=== PATIENT | female | born 1965 | race Caucasian/White ===

== ENCOUNTER → 2020-09-07 | Outpatient (CLI) | payer OTHER, SELFPAY ==
[2020-08-24 09:23] VITALS: BMI 25.0
--- NOTE | 2020-09-07 12:51 | ECHOD_ITS ---
Reason For Study: DYSPNEA Procedure This was a 2D Doppler, Color Flow transthoracic echocardiogram. Exam performed in department. Left Ventricle Normal LV size. Left ventricular systolic function is normal. The estimated ejection fraction is 65 %. Normal diastology for age. No regional wall motion abnormalities noted. Right Ventricle Normal RV size. Normal systolic function. Atria Normal left atrium. Normal right atrium. Mitral Valve Normal mitral valve. Mild (1+) eccentric mitral valve insufficiency. Tricuspid Valve Normal tricuspid valve. Mild tricuspid valve insufficiency. Pulmonary artery systolic pressure is 36 mmHg. Aortic Valve Normal aortic valve. Trisinus/trileaflet aortic valve. Pulmonic Valve Normal pulmonic valve. Great Vessels Normal aortic root. The pulmonary artery is normal size. Normal inferior vena cava. Pericardium/Pleural No pericardial effusion. Medication Previously positive bubble on echo. MMode/2D Measurements & Calculations LVIDd: 4.3 cm IVSd: 0.75 cm Ao root diam: 3.5 cm LVIDs: 2.8 cm LVPWd: 0.79 cm RVDd: 2.9 cm FS: 34.5 % LAV(MOD-bp): 44.2 ml LA A4 area: 16.6 cm2 LA dimension(2D): 3.6 cm LAV(MOD-bp) Indexed: 26.2 ml/m2 LAV(MOD-sp2): 40.9 ml LAV(MOD-sp4): 46.9 ml RA A4 area: 13.2 cm2 Time Measurements MV dec time: 0.20 sec Doppler Measurements & Calculations MV E max rocky: 92.2 cm/sec Lat Peak E' Rocky: 9.7 cm/sec Med Peak E' Rocky: 7.4 cm/sec MV A max rocky: 78.6 cm/sec E/E' lat: 9.5 E/E' med: 12.4 MV E/A: 1.2 Ao V2 max: 157.6 cm/sec LV V1 max: 133.1 cm/sec PA V2 max: 142.2 cm/sec Ao max P.9 mmHg LV V1 max P.1 mmHg TR max rocky: 290.4 cm/sec TR max P.7 mmHg Interpretation Summary Normal LV size. Left ventricular systolic function is normal. The estimated ejection fraction is 65 %. Normal diastology for age. The global longitudinal strain is normal. The global longitudinal strain = -23.1 % (normal). Ordering Physician: Rocael Rhodes Referring Physician: AMARILYS STEARNS Performed By: Soledad Duran, RDCS, RVT
== END | disposition home or self-care (01) ==
LOC: CVS 12:50
PROVIDERS: PCP Nurse Practitioner Primary Care; Referring Provider Internal Medicine Cardiovascular Disease; Visit Provider Internal Medicine Cardiovascular Disease
DX: R06.00 Dyspnea, unspecified (principal); R06.02 Shortness of breath; I10 Essential (primary) hypertension
CPT/HCPCS: 93306

== ENCOUNTER → 2023-03-02 | Outpatient (CLI) | payer OTHER, SELFPAY ==
[2023-03-02 15:41] LABS: Hematocrit 39.4 % (37-47); Hemoglobin 13.3 g/dL (12.0-15.0); Mean Corp Hgb Conc 33.8 g/dL (32-36); Mean Corpuscular Hgb 29.7 pg (27.0-32.0); Mean Corpuscular Volume 87.9 fL (81-99); Platelet Count 286 K/mm3 (150-450); RBC Distribution Width CV 11.7 % (11.6-14.6); RBC Distribution Width SD 37.5 fl (35.1-43.9); Red Blood Count 4.48 M/mm3 (4.2-5.4); White Blood Count 5.3 K/mm3 (4.4-11.0)
[2023-03-02 16:12] LABS: ALB/GLOB Ratio 1.3 RATIO (0.9-2.4); AST(SGOT) 32 U/L (15-37); Alanine Aminotransfer ALT/SGPT 44 U/L (13-56); Albumin, Serum 4.4 g/dL (3.2-5.0); Alkaline Phosphatase 69 U/L (45-117); Anion Gap 7 (5-15); BUN 13 mg/dL (7-18); BUN/Creat Ratio 15.5 RATIO (10-20); Calcium,Total 9.6 mg/dL (8.5-10.1); Chloride 108 mmol/L (98-107); Creatinine, Serum 0.84 mg/dL (0.55-1.02); EST Glomerular Filtration Rate 75 mL/min (>60); Est Glom Filt Rate - Afr Amer 90 mL/min (>60); Globulin 3.5 g/dL (2.2-4.2); Glucose 97 mg/dL (74-106); LDH 175 U/L (84-246); Potassium 3.6 mmol/L (3.5-5.1); Protein, Total 7.9 g/dL (6.4-8.2); Rheumatoid Factor < 10.0 IU/mL (<15); Sodium Level 142 mmol/L (136-145)
[2023-03-04 05:07] LABS: CA 15-3 13.4 U/mL (0.0-25.0); CA 27.29 15.7 U/mL (0.0-38.6); Carcinoembryonic Antigen 2.7 ng/mL (0.0-4.7)
[2023-03-04 14:10] LABS: ANTINUCLEAR ANTIBODIES DIRECT Negative (Negative)
== END | disposition home or self-care (01) ==
PROVIDERS: PCP Nurse Practitioner Primary Care
DX: C50.211 Malignant neoplasm of upper-inner quadrant of right female breast (principal)
CPT/HCPCS: 36415; 80053; 82378; 83615; 85027; 86038; 86300; 86431

== ENCOUNTER → 2023-04-30 | Outpatient (CLI) | payer OTHER, SELFPAY ==
[2023-04-30 13:34] LABS: Hematocrit 37.7 % (37-47); Hemoglobin 12.5 g/dL (12.0-15.0); Mean Corp Hgb Conc 33.2 g/dL (32-36); Mean Corpuscular Hgb 30.4 pg (27.0-32.0); Mean Corpuscular Volume 91.7 fL (81-99); Mean Platelet Vol. 10.9 fl (6.2-12.0); Platelet Count 251 K/mm3 (150-450); RBC Distribution Width CV 11.8 % (11.6-14.6); RBC Distribution Width SD 39.4 fl (35.1-43.9); Red Blood Count 4.11 M/mm3 (4.2-5.4); White Blood Count 5.1 K/mm3 (4.4-11.0)
[2023-04-30 13:45] LABS: Erythrocyte Sedimentation Rate < 1 mm/hr (0-30)
[2023-04-30 14:19] LABS: ALB/GLOB Ratio 1.3 RATIO (0.9-2.4); AST(SGOT) 22 U/L (15-37); Alanine Aminotransfer ALT/SGPT 26 U/L (13-56); Albumin, Serum 3.9 g/dL (3.2-5.0); Alkaline Phosphatase 66 U/L (45-117); Anion Gap 6 (5-15); BUN 14 mg/dL (7-18); BUN/Creat Ratio 13.5 RATIO (10-20); CRP < 2.90 mg/L (0.0-3.0); Chloride 108 mmol/L (98-107); Creatinine, Serum 1.04 mg/dL (0.55-1.02); EST Glomerular Filtration Rate 58 mL/min (>60); Est Glom Filt Rate - Afr Amer 70 mL/min (>60); Globulin 3.1 g/dL (2.2-4.2); Glucose 161 mg/dL (74-106); Sodium Level 141 mmol/L (136-145)
[2023-05-04 18:07] LABS: ANTINUCLEAR ANTIBODIES DIRECT Negative (Negative)
== END | disposition home or self-care (01) ==
PROVIDERS: PCP Registered Nurse; Referring Provider Family Medicine; Visit Provider Family Medicine
DX: R51.9 Headache, unspecified (principal); R22.0 Localized swelling, mass and lump, head; I10 Essential (primary) hypertension
CPT/HCPCS: 36415; 80053; 85027; 85652; 86038; 86140

== ENCOUNTER → 2023-05-25 | Outpatient (CLI) | payer OTHER, SELFPAY ==
[2023-05-25 14:50] LABS: Cholesterol 186 mg/dL (200); High Density Lipoprotein 64 mg/dL; T4 Free Direct 0.75 ng/dL (0.76-1.46); Thyroid Stim Hormone (TSH) 1.43 uIU/mL (0.358-3.74); Triglycerides 154 mg/dL; Very Low Density Lipoprotein 31 mg/dL (5-40)
== END | disposition home or self-care (01) ==
LOC: LAB 11:47
PROVIDERS: PCP Registered Nurse; Visit Provider Registered Nurse
DX: Z00.00 Encounter for general adult medical examination without abnormal findings (principal); Z13.29 Encounter for screening for other suspected endocrine disorder
CPT/HCPCS: 36415; 80061; 84439; 84443

== ENCOUNTER → 2023-06-12 | Outpatient (CLI) | payer OTHER, SELFPAY ==
[2023-06-12 16:31] LABS: Hematocrit 41.2 % (37-47); Hemoglobin 13.8 g/dL (12.0-15.0); Mean Corp Hgb Conc 33.5 g/dL (32-36); Mean Corpuscular Hgb 30.7 pg (27.0-32.0); Mean Corpuscular Volume 91.8 fL (81-99); Mean Platelet Vol. 10.3 fl (6.2-12.0); Platelet Count 287 K/mm3 (150-450); RBC Distribution Width CV 11.5 % (11.6-14.6); RBC Distribution Width SD 38.9 fl (35.1-43.9); Red Blood Count 4.49 M/mm3 (4.2-5.4); White Blood Count 6.2 K/mm3 (4.4-11.0)
[2023-06-12 16:59] LABS: ALB/GLOB Ratio 1.3 RATIO (0.9-2.4); AST(SGOT) 16 U/L (15-37); Alanine Aminotransfer ALT/SGPT 29 U/L (13-56); Albumin, Serum 4.3 g/dL (3.2-5.0); Alkaline Phosphatase 71 U/L (45-117); Anion Gap 5 (5-15); BUN 15 mg/dL (7-18); BUN/Creat Ratio 14.4 RATIO (10-20); Calcium,Total 9.3 mg/dL (8.5-10.1); Chloride 108 mmol/L (98-107); Creatinine, Serum 1.04 mg/dL (0.55-1.02); EST Glomerular Filtration Rate 58 mL/min (>60); Est Glom Filt Rate - Afr Amer 70 mL/min (>60); Globulin 3.3 g/dL (2.2-4.2); Glucose 116 mg/dL (74-106); Potassium 3.8 mmol/L (3.5-5.1); Protein, Total 7.6 g/dL (6.4-8.2); Sodium Level 142 mmol/L (136-145)
[2023-06-14 11:07] LABS: CA 15-3 13.1 U/mL (0.0-25.0); CA 27.29 23.7 U/mL (0.0-38.6); Carcinoembryonic Antigen 2.8 ng/mL (0.0-4.7)
== END | disposition home or self-care (01) ==
PROVIDERS: PCP Registered Nurse
DX: C50.211 Malignant neoplasm of upper-inner quadrant of right female breast (principal)
CPT/HCPCS: 36415; 80053; 82378; 85027; 86300

== ENCOUNTER → 2023-07-20 | Outpatient (CLI) | payer OTHER, SELFPAY ==
[2023-07-20 14:06] LABS: T4 Free Direct 0.86 ng/dL (0.76-1.46); Thyroid Stim Hormone (TSH) 0.59 uIU/mL (0.358-3.74)
== END | disposition home or self-care (01) ==
LOC: LAB 13:17
PROVIDERS: PCP Registered Nurse; Referring Provider Registered Nurse; Visit Provider Registered Nurse
DX: E03.9 Hypothyroidism, unspecified (principal)
CPT/HCPCS: 36415; 84439; 84443

== ENCOUNTER 2023-10-02 01:08 | Emergency (ER) | payer OTHER, SELFPAY ==
[2023-10-02 01:09] VITALS: BP 118/75; PULSE 100; RESP 16; TEMP 35.9; O2SAT 98; BMI 26.1
--- NOTE | 2023-10-02 01:19 | EDS_ITS ---
HPI History of Present Illness Chief Complaint: Palpitations Detail of Chief Complaint: Palpitations and chest tightness that awoke her from sleep Informant: patient Onset/Context/Timing Onset: Hours (1.0) Activity at onset: sudden Timing: Continuous Quality: Positive for Tightness Location: Substernal Current Severity: Mild Maximum Severity: Moderate Worsened By: Nothing Relieved By: Nothing Associated Symptoms: Positive for Diaphoresis and Dyspnea; Negative for Nausea, Vomiting, Cough, Fever, Lightheadedness, Acid Reflux or Palpitations Narrative Narrative: Patient is a 57-year-old woman with history of hypertension, right breast cancer, patent foramen ovale who was admitted to [facility] [place] August 27 for new onset A-fib. She was placed on Eliquis at that time. The Eliquis was discontinued on September 11. She is presently taking a baby aspirin a day. She has not had an alcoholic beverage since then. She is presently on metoprolol 50 mg extended release daily and amlodipine 5 mg daily. Patient states she was awakened to sleep with substernal tightness palpitations irregular heartbeat. She was short of breath. She states she was sweaty. There is no radiation of the discomfort. She denies fever, chills night sweats. She has trouble with her vision because she does not have her contacts in. She does complain of bifrontal headache. She denies trouble with speech or swallowing. Denies neck pain or neck stiffness. She denies history of VTE. She has no risk factors for VTE. Her breast cancer is not active and was diagnosed greater than 3 years ago. Prior Similar Symptoms: Yes (New onset atrial fibrillation) Recent Illness/Hospitalization: Yes (August 27, 2023, [id number]) CVD Risk Factors: Positive for Hypertension; Negative for Diabetes, Hypercholesterolemia, Family History 1' </=55 or Smoking PE Risk Factors: Negative for Recent Travel/Surgery, Recent Immobilization, Prior DVT or PE, Cancer (Not active and not undergoing treatment.) or OCP + Smoking + >/=35 TAD Risk Factors: Positive for Hypertension; Negative for Marfan's Syndrome or Family History [facility] Medical History Afib Breast cancer, right Essential (primary) hypertension Family history of patent foramen ovale History of psoriasis Intermittent palpitations Patent foramen ovale Tubal occlusion Vaginal dryness Home Medications omega 3-dha 60 mg-epa 90 mg-fish oil 500 mg capsule, delayed release 1,000 mg PO DAILY 10/21/13 [History Last Taken Unknown] vitamin B complex 1 ea PO DAILY 10/21/13 [History Last Taken Unknown] diphenhydramine HCl 25 mg capsule 50 mg PO DAILY PRN Allergies 04/13/20 [History Last Taken Unknown] lactobacillus combination no.8 3 billion cell capsule 1 ea PO DAILY 04/13/20 [History Last Taken Unknown] loratadine 10 mg tablet 10 mg PO DAILY 04/13/20 [History Last Taken Unknown] melatonin 5 mg tablet 5 mg PO QHS PRN Sleep 04/13/20 [History Last Taken Unknown] tamoxifen 20 mg tablet 20 mg PO DAILY #90 tabs 04/17/20 [Rx Last Taken Unknown] metoprolol succinate 50 mg tablet,extended release 24 hr (Toprol XL) 50 mg PO DAILY #90 tabs 08/24/20 [Rx Last Taken Unknown] losartan 50 mg tablet 50 mg PO DAILY #30 tabs 09/10/20 [Rx Last Taken Unknown] amlodipine 5 mg tablet 5 mg PO DAILY 10/02/23 [History Last Taken Unknown] aspirin 81 mg tablet,delayed release 81 mg PO DAILY 10/02/23 [History Last Taken Unknown] duloxetine 30 mg capsule,delayed release 30 mg PO DAILY 10/02/23 [History Last Taken Unknown] levothyroxine 25 mcg tablet 25 mcg PO DAILY 10/02/23 [History Last Taken Unknown] Allergy/AdvReac Type Severity Reaction Status Date / Time anastrozole AdvReac headaches Verified 10/02/23 01:09 joint pain Family History Father Hypertension Mother Breast cancer Brother Leukemia Sister Breast cancer Grandfather Lung cancer Surgical History History of appendectomy History of breast biopsy History of recent maxillofacial surgery Social History (Updated 10/02/23 @ 01:[address] Juan Jose Rivas MD) household members: spouse Smoking Status: Unknown if ever smoked alcohol intake: former substance use type: does not use ROS ROS ED Constitutional Constitutional ED: Denies chills, fever(s), subjective, sweats or weight loss Eyes Eyes: Reports none Cardiovascular Cardiovascular: Reports as per HPI; Denies orthopnea or paroxysmal nocturnal dyspnea Respiratory/Chest Respiratory/Chest: Reports dyspnea; Denies cough, dyspnea on exertion, orthopnea, paroxysmal nocturnal dyspnea or sputum Gastrointestinal Gastrointestinal: Denies abdominal pain, nausea or vomiting Musculoskeletal Musculoskeletal: Denies arthralgias, back pain, myalgias or neck pain Integumentary Denies rash Neurologic Neurologic: Reports headache(s); Denies paresthesias or weakness Hematologic/Lymphatic Hematologic/Lymphatic: Denies easy bleeding or easy bruising EXAM Physical Exam Const Vital Signs: 10/02/23 01:09 10/02/23 01:13 10/02/23 01:26 Temperature 96.6 F L Temperature Source Temporal Pulse Rate 100 Respiratory Rate 16 Respiratory Effort Normal Non-Labored Blood Pressure 118/75 Blood Pressure Mean 89 Pulse Ox 98 100 Oxygen Delivery Method Room Air Room Air 10/02/23 03:50 Temperature Temperature Source Pulse Rate 75 Respiratory Rate 18 Respiratory Effort Blood Pressure 105/52 L Blood Pressure Mean 69 Pulse Ox 95 Oxygen Delivery Method Room Air Positive well nourished and well developed General Appearance ED: well developed and NAD; Negative for pallor HEENT Reports moist mucous membranes HEENT Narrative: Nares patent. Ears are normal. normocephalic and atraumatic Eyes PERRL and EOMs intact bilaterally General Eye ED: Negative for pale conjunctiva or scleral icterus Neck no lymphadenopathy, supple and no JVD Neck Narrative: Trachea is midline. Chest Wall palpation of chest normal Resp normal respiratory effort and clear to auscultation bilaterally Cardio regular rate, regular rhythm, S1 normal heart sound, S2 normal heart sound and no murmurs Peripheral Pulses: pulses 2+ throughout GI normal to inspection, nondistended, normoactive bowel sounds, soft to palpation, non-tender, non-distended and no masses; Negative for hepatosplenomegaly Extremity normal to inspection Extremity Narrative: There is no asymmetry, swelling, discoloration, leg vein distention, palpable cords or tenderness along the distribution of the deep venous system. Neuro oriented x3, CN's II-XII intact bilaterally and no sensory deficits noted Sensorium / Orientation: awake and alert Psych mental status grossly normal Skin no rashes or lesions noted and no wounds General Skin Exam: Negative for jaundice or pallor MDM MDM MDM Narrative Medical decision making narrative: Patient with chest pressure and palpitations. This may be due to atrial fibrillation. Need to rule out cardiac ischemia versus noncardiac causes. Since patient denies history of heartburn has no history of GERD x-ray was not obtained especially since her respiratory rate is normal she is not hypoxic and lungs are clear to auscultation. EKG was obtained. EKG reveals normal sinus rhythm with no acute ischemic changes. CBC was obtained to rule out anemia. Troponin with 2-hour troponin to rule out cardiac event. Echo that is available for my review is from 2019 and was unremarkable. Review of prior records indicates she does have a PFO. History & Record Review Additional record(s) reviewed:: Prior outpatient record, Prior ED visit and Prior labs Lab Data Attestation: I reviewed the patient's lab results. Lab results narrative: CBC is remarkable for mild lymphocytosis otherwise unremarkable. Basic metabolic panel is unremarkable. First troponin is normal, 6. Labs: Laboratory Results - last 24 hr 10/02/23 10/02/23 01:23 03:30 WBC 7.2 RBC 4.68 Hgb 14.0 Hct 40.8 MCV 87.2 MCH 29.9 MCHC 34.3 RDW Std Deviation 37.0 RDW Coeff of Dasha 11.7 Plt Count 282 MPV 10.0 Immature Gran % (Auto) 0.100 Neut % (Auto) 42.4 L Lymph % (Auto) 44.1 H [place] % (Auto) 9.5 Eos % (Auto) 2.8 Baso % (Auto) 1.1 H Absolute Neuts (auto) 3.1 Absolute Lymphs (auto) 3.19 Nucleated RBC % 0 Sodium 142 Potassium 3.7 Chloride 110 H Carbon Dioxide 27.0 Anion Gap 5 BUN 20 H Creatinine 1.01 Estim Creat Clear Calc 53.71 Est GFR (MDRD) Af Amer 73 Est GFR (MDRD) Non-Af 60 BUN/Creatinine Ratio 19.8 Glucose 98 Calcium 9.3 Troponin I High Sens 6 8 Second troponin is 8 with a delta of 2. Both these are normal. Patient was discharged to home. Rhythm Strip Rhythm Strip: Sinus Rhythm Rate: 98 Ectopy: None EKG Initial EKG: Attestation: I personally reviewed and interpreted this EKG as follows: Interpretation: Sinus Rhythm (Rate is 95. MN interval is 144 ms. QS duration 72 ms. QT duration 3 and 56 ms. Gruver is normal. In my opinion the EKG is normal.) Treatment and Re-Evaluation :: At 0209 patient was informed of her results and need for repeat troponin. She requested Tylenol for her bifrontal head pain. Discharge Plan Triage Chief Complaint: Palpitations ED Provider: Juan Jose Rivas Dx/Rx/DC Orders Clinical Impression: Left chest pressure, Essential (primary) hypertension, Patent foramen ovale, Palpitations, Paroxysmal A-fib Instructions: ED Chest Pain, Noncardiac, ED Palpitations Prescriptions: No Action metoprolol succinate [Toprol XL] 50 mg tablet extended release 24 hr 50 mg PO DAILY Qty: 90 3RF losartan 50 mg tablet 50 mg PO DAILY Qty: 30 11RF vitamin B complex 1 EACH capsule 1 ea PO DAILY omega [id number] oil 500 MG capsule,delayed release(DR/EC) 1,000 mg PO DAILY diphenhydramine HCl 25 MG capsule 50 mg PO DAILY PRN (Reason: Allergies) loratadine 10 MG tablet 10 mg PO DAILY melatonin 5 MG tablet 5 mg PO QHS PRN (Reason: Sleep) lactobacillus combination no.8 1 EACH capsule 1 ea PO DAILY tamoxifen 20 MG tablet 20 mg PO DAILY Qty: 90 3RF amlodipine 5 mg tablet 5 mg PO DAILY aspirin 81 mg tablet,delayed release (DR/EC) 81 mg PO DAILY Patient Comments: TAKE 1 TABLET BY MOUTH EVERY DAY duloxetine 30 mg capsule,delayed release(DR/EC) 30 mg PO DAILY Patient Comments: TAKE 1 CAPSULE BY MOUTH EVERY DAY .DO NOT CRUSH OR CHEW levothyroxine 25 mcg tablet 25 mcg PO DAILY Patient Comments: TAKE 1 TABLET BY MOUTH EVERY DAY Primary Care Provider: Lian Brito NP Referrals: Lian Brito NP, [employer] [Primary Care Provider] - 5-7 Days Disposition Disposition: Home, Self Care
[2023-10-02 01:26] VITALS: O2SAT 100
[2023-10-02 01:31] LABS: Absolute Lymphocyte Count 3.19 X10^3/uL (0.83-4.51); Absolute Neutrophil Count 3.1 X10^3/uL (2.0-7.7); Basophil# 0.08 X10^3/uL; Basophil% 1.1 % (0-1); Eosinophils% 2.8 % (0-5); Hematocrit 40.8 % (37-47); Lymphocyte # 3.19 X10^3/ul (0.83-4.51); Lymphocyte % 44.1 % (19-41); Mean Corp Hgb Conc 34.3 g/dL (32-36); Mean Corpuscular Hgb 29.9 pg (27.0-32.0); Mean Corpuscular Volume 87.2 fL (81-99); Monocyte# 0.69 X10^3/uL; Monocyte% 9.5 % (0-10); NRBC Flagged by Analyzer 0 % (0-5); Neutrophil # 3.07 X10^3/uL (2.7-7.7); Neutrophil % 42.4 % (47-70); Platelet Count 282 K/mm3 (150-450); RBC Distribution Width CV 11.7 % (11.6-14.6); Red Blood Count 4.68 M/mm3 (4.2-5.4); White Blood Count 7.2 K/mm3 (4.4-11.0)
[2023-10-02 02:02] LABS: Anion Gap 5 (5-15); BUN 20 mg/dL (7-18); BUN/Creat Ratio 19.8 RATIO (10-20); Calcium,Total 9.3 mg/dL (8.5-10.1); Chloride 110 mmol/L (98-107); Creatinine, Serum 1.01 mg/dL (0.55-1.02); EST Glomerular Filtration Rate 60 mL/min (>60); Est Glom Filt Rate - Afr Amer 73 mL/min (>60); Estimated Creatinine Clearance 53.71 ml/min; Glucose 98 mg/dL (74-106); Potassium 3.7 mmol/L (3.5-5.1); Sodium Level 142 mmol/L (136-145); Troponin-I HS (w/2H Reflex) 6 pg/mL (3.0-54.0)
[2023-10-02] MEDS: Acetaminophen 325 MG Tablet 650 MG PO (02:23)
[2023-10-02 03:25] LABS: Reflex Troponin-HS? (from REC) Y
[2023-10-02 03:50] VITALS: BP 105/52; PULSE 75; RESP 18; O2SAT 95
[2023-10-02 03:53] LABS: Troponin-I HS 8 pg/mL (3.0-54.0)
[2023-10-02 04:18] VITALS: BP 107/76; PULSE 91; RESP 18; O2SAT 95
== END 2023-10-02 04:19 | disposition home or self-care (01) ==
PROVIDERS: Emergency Provider Emergency Medicine; PCP Registered Nurse; Visit Provider Emergency Medicine
DX: R07.89 Other chest pain (principal); I48.0 Paroxysmal atrial fibrillation; I10 Essential (primary) hypertension; Q21.12 Patent foramen ovale; R51.9 Headache, unspecified; Z79.82 Long term (current) use of aspirin; Z79.899 Other long term (current) drug therapy
CPT/HCPCS: 80048; 84484; 85025; 93005; 99284; A4216

== ENCOUNTER 2024-07-11 09:29 | Observation (INO) | payer OTHER, SELFPAY ==
[2024-07-11] VITALS (19 sets, daily range): BP systolic 98–177; BP diastolic 62–115; PULSE 71–157; RESP 13–26; TEMP 36.6–36.8; O2SAT 94–99; BMI 27.5; BMI 26.5
--- NOTE | 2024-07-11 09:40 | RAD_ITS ---
INDICATION: chest pain EXAMINATION/TECHNIQUE: X-RAY - XR Chest 1 View COMPARISON: January 15, 2012 FINDINGS: LINES/DEVICES: There are surgical clips projecting over the right axilla and right hemithorax. LUNGS: No consolidation, edema or effusion. No pneumothorax. MEDIASTINUM AND CARDIOVASCULAR STRUCTURES: Cardiac silhouette not enlarged. Central airways and mediastinal contour are unremarkable. BONES AND SOFT TISSUES: Unremarkable. RAD/Chest 1 View (Portable) IMPRESSION: No radiographic evidence of acute cardiopulmonary disease. Electronically Signed: Svitlana Leal MD at 10:43 EDT ,
--- NOTE | 2024-07-11 09:40 | ED.VIS.CHEST ---
HPI History of Present Illness Chief Complaint: Chest Pain Informant: patient Narrative Narrative: Sudden onset about 40 minutes ago chest tightness and rapid irregular heartbeat. No lightheadedness. No dyspnea. 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 She also had a lot of caffeine overnight, and took 3 DayQuil because she has had some nasal congestion for the last 3 days and a cough for about 2 weeks. [facility] Medical History Afib Intermittent palpitations Patent foramen ovale Essential (primary) hypertension Vaginal dryness Family history of patent foramen ovale Breast cancer, right Tubal occlusion History of psoriasis Home Medications ?Medication ?Instructions ?Recorded ?Last Taken ?Type omega 3-dha 60 mg-epa 90 mg-fish 2 cap PO DAILY 10/21/13 07/10/24 History oil 500 mg capsule, delayed release vitamin B complex 1 ea PO DAILY 10/21/13 07/10/24 History loratadine 10 mg tablet 10 mg PO DAILY 04/13/20 07/10/24 History metoprolol succinate 50 mg 50 mg PO DAILY #90 tabs 08/24/20 07/11/24 Rx tablet,extended release 24 hr (Toprol XL) aspirin 81 mg tablet,delayed 81 mg PO DAILY 10/02/23 07/10/24 History release duloxetine 30 mg capsule,delayed 30 mg PO DAILY 10/02/23 07/10/24 History release levothyroxine 25 mcg tablet 25 mcg PO DAILY 10/02/23 07/10/24 History letrozole 2.5 mg tablet 2.5 mg PO DAILY 07/11/24 07/10/24 History lisinopril 10 mg tablet 10 mg PO DAILY 07/11/24 Unknown History Allergy/AdvReac Type Severity Reaction Status Date / Time lisinopril Allergy Intermediate cough Verified 07/11/24 09:32 anastrozole AdvReac headaches Verified 07/11/24 09:32 joint pain Family History Father Hypertension Mother Breast cancer Brother Leukemia Sister Breast cancer Grandfather Lung cancer Surgical History History of breast biopsy History of recent maxillofacial surgery History of appendectomy Social History household members: spouse Smoking Status: Unknown if ever smoked alcohol intake: former substance use type: does not use ROS ROS ED Constitutional Constitutional ED: Denies chills or fever(s) Eyes Eyes: Denies change in vision or diplopia ENT ENT ED: Denies rhinorrhea or sore throat Cardiovascular Cardiovascular: Reports chest pain, palpitations and racing heartbeat Respiratory/Chest Respiratory/Chest: Denies cough or dyspnea Gastrointestinal Gastrointestinal: Denies abdominal pain, diarrhea, nausea or vomiting Genitourinary Genitourinary ED: Denies dysuria or hematuria Musculoskeletal Musculoskeletal: Denies back pain or neck pain Integumentary Denies abscess or rash Neurologic Neurologic: Denies headache(s), paresthesias or weakness Psychiatric Psychiatric: Denies suicidal thoughts EXAM Physical Exam Const Vital Signs: 07/11/24 09:30 07/11/24 09:56 07/11/24 10:29 Temperature 97.8 F Temperature Source Temporal Pulse Rate 157 H 140 H Respiratory Rate 14 13 Blood Pressure 177/115 H 133/97 H Blood Pressure Mean 135 109 Pulse Ox 96 95 Oxygen Delivery Method Room Air Room Air Room Air Positive well nourished and well developed General Appearance ED: well developed and NAD HEENT Reports moist mucous membranes normocephalic and atraumatic Eyes PERRL and EOMs intact bilaterally Neck full ROM and supple Chest Wall inspection of chest normal and palpation of chest normal Resp normal respiratory effort and clear to auscultation bilaterally Cardio Rate: tachycardic Rhythm: abnormal rhythm irregularly irregular Peripheral Pulses: pulses 2+ throughout GI non-tender and non-distended Auscultation: normoactive bowel sounds Palpation: soft Back/Spine no CVA tenderness General Back: other FROM Extremity normal to inspection Extremity Narrative: No calf tenderness or pedal edema General Extremety ED: Negative for edema, pulses abnormal or tenderness General Extremity: Negative for edema or pulses abnormal Neuro oriented x3, CN's II-XII intact bilaterally and no sensory deficits noted Sensorium / Orientation: awake and alert Motor Exam: strength 5/5 throughout Psych mental status grossly normal Skin no rashes or lesions noted and no wounds Heart Score History: Moderately Suspicious ECG: Nonspecific Repolarization Age: >45 - <65 years Score: 3 MDM MDM MDM Narrative Medical decision making narrative: Patient appears to be in rapid A-fib. She said this happened once to her but it was alcohol related, she has not had any alcohol recently, however she has had phenylephrine and caffeine, she has a history of a PFO that she is on metoprolol for, following with cardiology [facility] Dr. Joe. She states she is on extended release 50 mg once daily she took an extra 1 this morning after this started. 1 view chest x-ray my interpretation does not show pneumonia. There is otherwise unremarkable as well. EKG is consistent with rapid A-fib and no acute injury, but there are nonspecific ST-T wave abnormalities that are likely rate related. Her troponin is normal, there is another 1 ordered but we are not able to get her rate controlled easily even after Cardizem 20 mg. Therefore she is getting another 15 mg and we will put her on a drip, her potassium is really low so we will address that, she is asking for something for headache so she is given some Tylenol and going to admit her to the hospital. Since she ate 1-2 hours ago, she is really not a good candidate for procedural sedation and cardioversion at this point. Lab Data Attestation: I reviewed the patient's lab results. Labs: Laboratory Results - last 24 hr 07/11/24 09:30 WBC 9.5 RBC 4.51 Hgb 13.3 Hct 40.4 MCV 89.6 MCH 29.5 MCHC 32.9 RDW Std Deviation 37.3 RDW Coeff of Dasha 11.7 Plt Count 273 MPV 10.5 Immature Gran % (Auto) 0.300 Neut % (Auto) 52.9 Lymph % (Auto) 32.0 [place] % (Auto) 10.9 H Eos % (Auto) 3.1 Baso % (Auto) 0.8 Absolute Neuts (auto) 5.0 Absolute Lymphs (auto) 3.02 Nucleated RBC % 0 Sodium 140 Potassium 2.9 L Chloride 102 Carbon Dioxide 29.0 Anion Gap 9 BUN 18 Creatinine 1.11 H Estim Creat Clear Calc 54.64 Est GFR (MDRD) Af Amer 65 Est GFR (MDRD) Non-Af 54 L BUN/Creatinine Ratio 16.2 Glucose 152 H Calcium 9.6 Troponin I High Sens 4 Radiography Diagnostic Testing: Clinical Impression(s) from Imaging Studies Chest X-Ray 07/11/24 09:40 IMPRESSION: No radiographic evidence of acute cardiopulmonary disease. Electronically Signed: Svitlana Leal MD at 10:43 EDT , Rhythm Strip Rhythm Strip: A-fib Rate: 160 Ectopy: None EKG Initial EKG: Attestation: I personally reviewed and interpreted this EKG as follows: Interpretation: No Acute Injury Pattern, Atrial Fibrillation (Rapid) and Non-Specific ST Changes Prior: Changed Management Discussion w/another healthcare provider: Hospitalist Critical Care Time Critical Care Time: Yes Critical care time (excluding procedures): 30-74 minutes (34 min), Including time spent:, Discussing w/Patient &/or Family/Pediatrician Active Practice, Discussing w/Consultants, Arranging Admission or Transfer and Performing Direct Patient Care at Bedside Discharge Plan Dx/Rx/DC Orders Clinical Impression: Atrial fibrillation with RVR, Chest pain, Acute hypokalemia Disposition Disposition: Acute Care Hospital [facility]
[2024-07-11] MEDS: dilTIAZem 25 MG/5 ML Vial 20 MG IV BOLUS (09:52)
[2024-07-11] MEDS: 0.9% Normal Saline (1000mL) 1,000 ML 999 ML IV (09:53)
[2024-07-11 10:01] LABS: Absolute Lymphocyte Count 3.02 X10^3/uL (0.83-4.51); Basophil# 0.08 X10^3/uL; Basophil% 0.8 % (0-1); Eosinophil# 0.29 X10^3/uL; Eosinophils% 3.1 % (0-5); Hematocrit 40.4 % (37-47); Hemoglobin 13.3 g/dL (12.0-15.0); Lymphocyte # 3.02 X10^3/ul (0.83-4.51); Mean Corp Hgb Conc 32.9 g/dL (32-36); Mean Corpuscular Hgb 29.5 pg (27.0-32.0); Mean Corpuscular Volume 89.6 fL (81-99); Mean Platelet Vol. 10.5 fl (6.2-12.0); Monocyte# 1.03 X10^3/uL; Monocyte% 10.9 % (0-10); NRBC Flagged by Analyzer 0 % (0-5); Neutrophil % 52.9 % (47-70); Platelet Count 273 K/mm3 (150-450); RBC Distribution Width CV 11.7 % (11.6-14.6); RBC Distribution Width SD 37.3 fl (35.1-43.9); Red Blood Count 4.51 M/mm3 (4.2-5.4); White Blood Count 9.5 K/mm3 (4.4-11.0)
[2024-07-11 10:15] LABS: Anion Gap 9 (5-15); BUN 18 mg/dL (7-18); BUN/Creat Ratio 16.2 RATIO (10-20); Calcium,Total 9.6 mg/dL (8.5-10.1); Chloride 102 mmol/L (98-107); Creatinine, Serum 1.11 mg/dL (0.55-1.02); EST Glomerular Filtration Rate 54 mL/min (>60); Est Glom Filt Rate - Afr Amer 65 mL/min (>60); Estimated Creatinine Clearance 54.64 ml/min; Glucose 152 mg/dL (74-106); Potassium 2.9 mmol/L (3.5-5.1); Sodium Level 140 mmol/L (136-145); Troponin-I HS (w/2H Reflex) 4 pg/mL (3.0-54.0)
[2024-07-11] MEDS: Potassium Chloride Oral Tablet 20 MEQ 40 MEQ PO (10:52)
[2024-07-11] MEDS: Acetaminophen 500 MG Tablet 1000 MG PO (10:52)
[2024-07-11] MEDS: dilTIAZem 25 MG/5 ML Vial 15 MG IV BOLUS (10:57)
--- NOTE | 2024-07-11 11:17 | PCM.HP.STD ---
HPI - General General Date of Admission: 07/11/24 Date of Service: 07/11/24 Chief Complaint: A-fib with RVR HPI Narrative ROSA ISELA CARY, is a 58 F who presented to [facility] ED on 07/11/2024 with chest tightness and palpitations. Patient has history of A-fib with RVR, previously followed with [facility] and more recently was followed with a senior mainframe developer in [place]. 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 She did note having a lot of caffeine overnight and also took 3 DayQuil because of nasal congestion that she was having. She began having the symptoms after eating a large breakfast of biscuits and gravy at home. Symptoms started about an hour before she arrived at the hospital. On arrival she was found to be in A-fib with RVR. She was given 2 boluses of IV Cardizem without conversion to sinus rhythm and was then started on a Cardizem drip. When I saw her, she remained in A-fib with RVR with rate in the 120s to low 130s. She appeared somewhat fatigued but otherwise comfortable on exam. Her was at bedside with her. She states that she will occasionally have short episodes like this especially after working night shifts but usually she just calms down and goes to sleep and the episode has resolved when she wakes up. She has not had an episode that lasted this long and about a year. On chart review, she was hospitalized in [place] last August with new onset A-fib with RVR. That episode apparently resolved during that hospitalization and she was discharged on Toprol 50 mg daily. She continues to take this dose of Toprol now. She took a dose this morning before coming in but it did not seem to have much effect. Otherwise, she was found to have a potassium of 2.9 and this was aggressively repleted on admission. Given her ongoing A-fib with RVR on the cardizem drip, patient was admitted for further management. [facility] Medical History Afib Intermittent palpitations Patent foramen ovale Essential (primary) hypertension Vaginal dryness Family history of patent foramen ovale Breast cancer, right Tubal occlusion History of psoriasis Home Medications ?Medication ?Instructions ?Recorded ?Last Taken ?Type omega 3-dha 60 mg-epa 90 mg-fish 2 cap PO DAILY 10/21/13 07/10/24 History oil 500 mg capsule, delayed release vitamin B complex 1 ea PO DAILY 10/21/13 07/10/24 History loratadine 10 mg tablet 10 mg PO DAILY 04/13/20 07/10/24 History metoprolol succinate 50 mg 50 mg PO DAILY #90 tabs 08/24/20 07/11/24 Rx tablet,extended release 24 hr (Toprol XL) aspirin 81 mg tablet,delayed 81 mg PO DAILY 10/02/23 07/10/24 History release duloxetine 30 mg capsule,delayed 30 mg PO DAILY 10/02/23 07/10/24 History release levothyroxine 25 mcg tablet 25 mcg PO DAILY 10/02/23 07/10/24 History letrozole 2.5 mg tablet 2.5 mg PO DAILY 07/11/24 07/10/24 History lisinopril 10 mg tablet 10 mg PO DAILY 07/11/24 Unknown History Allergy/AdvReac Type Severity Reaction Status Date / Time lisinopril Allergy Intermediate cough Verified 07/11/24 09:32 anastrozole AdvReac headaches Verified 07/11/24 09:32 joint pain Family History Father Hypertension Mother Breast cancer Brother Leukemia Sister Breast cancer Grandfather Lung cancer Surgical History History of breast biopsy History of recent maxillofacial surgery History of appendectomy Social History household members: spouse Smoking Status: Never smoker alcohol intake: former substance use type: does not use ROS Constitutional Constitutional: Reports fatigue; Denies chills, fever(s) or weakness Eyes Eyes: Denies change in vision Cardiovascular Cardiovascular: Reports chest pain, palpitations and rapid heart rate; Denies dyspnea on exertion, edema or lightheadedness Respiratory/Chest Respiratory/Chest: Reports cough and shortness of breath with exertion; Denies productive cough, shortness of breath at rest or wheezing Gastrointestinal Gastrointestinal: Denies abdominal pain Genitourinary Genitourinary: Denies dysuria Musculoskeletal Musculoskeletal: Denies arthralgias or myalgias Neurologic Neurologic: Denies focal weakness, headache(s) or numbness Vital Signs Vital Signs Vital Signs: 07/11/24 09:30 07/11/24 09:56 07/11/24 10:29 Temperature 97.8 F Temperature Source Temporal Pulse Rate 157 H 140 H Respiratory Rate 14 13 Blood Pressure 177/115 H 133/97 H Blood Pressure Mean 135 109 Pulse Ox 96 95 Oxygen Delivery Method Room Air Room Air Room Air Weight Weight: 72.7 kg Body Mass Index (BMI) 27.5 Physical Exam Const alert, oriented x3, no apparent distress and average body habitus Constitutional Narrative: Pleasant middle-age female, mildly fatigued appearing, otherwise laying comfortably in bed, conversing normally, in no acute distress. General Appearance: cooperative and comfortable HEENT normocephalic, head/scalp atraumatic, hearing grossly normal bilaterally, nasal mucous membranes and turbinates normal and moist oral mucous membranes Eyes PERRL, EOMs intact bilaterally and conjunctivae normal Neck full ROM Chest inspection of chest normal Resp normal respiratory effort, normal air movement, no use of accessory muscles and clear to auscultation bilaterally Cardio no murmurs and peripheral pulses 2+ throughout Cardio Narrative: A-fib with RVR. GI normal to inspection, nondistended, normoactive bowel sounds, soft to palpation, non-tender and non-distended Back/Spine normal ROM Extremity normal to inspection, full ROM and no pedal edema Skin no rashes or lesions noted Neuro no focal motor deficits Speech: speech normal Psych mental status grossly normal Results Lab / Micro Data 07/11/24 09:30 07/11/24 09:30 Labs: Laboratory Results - last 24 hr 07/11/24 09:30: WBC 9.5, RBC 4.51, Hgb 13.3, Hct 40.4, MCV 89.6, MCH 29.5, MCHC 32.9, RDW Std Deviation 37.3, RDW Coeff of Dasha 11.7, Plt Count 273, MPV 10.5, Immature Gran % (Auto) 0.300, Neut % (Auto) 52.9, Lymph % (Auto) 32.0, Zapata % (Auto) 10.9 H, Eos % (Auto) 3.1, Baso % (Auto) 0.8, Absolute Neuts (auto) 5.0, Absolute Lymphs (auto) 3.02, Nucleated RBC % 0, Sodium 140, Potassium 2.9 L, Chloride 102, Carbon Dioxide 29.0, Anion Gap 9, BUN 18, Creatinine 1.11 H, Estim Creat Clear Calc 54.64, Est GFR (MDRD) Af Amer 65, Est GFR (MDRD) Non-Af 54 L, BUN/Creatinine Ratio 16.2, Glucose 152 H, Calcium 9.6, Troponin I High Sens 4 Rhythm Strip Rhythm Strip: A-fib Rate: 160 Ectopy: None Imaging Radiology Impression Chest X-Ray 07/11/24 09:40 IMPRESSION: No radiographic evidence of acute cardiopulmonary disease. Electronically Signed: Svitlana Leal MD at 10:43 EDT , Assessment & Plan Assessment/Plan (1) Atrial fibrillation with RVR: (2) Acute hypokalemia: PLAN: Plan Patient is a 58-year-old female who presented [facility] ED on 07/11/2024 with chest tightness and palpitations. 1. Recurrent A-fib with RVR ? Admit under inpatient status to PCU. Cardiology consulted. Continue Cardizem drip for now. Changed home Toprol to Lopressor 25 mg twice daily for now. Given 1 dose of therapeutic Lovenox in the ED, will hold on further blood thinner for now. Hopeful that patient will convert back to normal sinus rhythm on the Cardizem drip in the next 24 hours or so. Notably not a good cardioversion candidate in the ED because she had just eaten a large breakfast before coming in. Per clinic records, last echo earlier this year showed normal EF; given suspected acute onset of A-fib with RVR this morning, no need for repeat echo at this time. Monitor closely. 2. Hypokalemia ? Potassium 2.9 on admit. Magnesium and phosphorus added to ED labs. Continue with aggressive repletion as needed. Follow-up daily BMP. Chronic medical conditions: ? Hypothyroidism: TSH ordered. Continue home Synthroid. ? Hypertension: Holding home lisinopril for now. Switched to Lopressor 25 mg twice daily as noted above. ? History of breast cancer: Continue home letrozole. DVT prophylaxis: Lovenox CODE STATUS: Full code, verified Expected disposition: Home, 2 to 3 days Total clinical time spent by myself addressing the patient's medical issues, reviewing all the data, and collaborating with patient's care team: 55 minutes. Charges/Coding Visit Charges Inpatient E&M: 96578 Init Hosp L2
[2024-07-11] MEDS: Enoxaparin 80 MG/0.8 ML Syringe 70 MG SC (11:32)
[2024-07-11] MEDS: Diltiazem 125 MG in Dextrose 5%-Water (100mL Bag) 100 ML IV (11:32)
[2024-07-11] MEDS: Potassium Chloride 10mEq/100mL 10 MEQ/100 ML IV.SOLN. 100 MEQ IV BOLUS (11:32)
[2024-07-11 11:53] LABS: Reflex Troponin-HS? (from REC) Y
[2024-07-11 13:12] LABS: Troponin-I HS 12 pg/mL (3.0-54.0)
[2024-07-11] MEDS: 0.9% Saline Lock 10 ML Syringe IV ×2 (13:58→17:43)
[2024-07-11] MEDS: DULoxetine Hcl 30 MG Capsule PO (16:38)
[2024-07-11] MEDS: Loratadine 10 MG Tablet PO (16:39)
[2024-07-11] MEDS: Aspirin E.C. 81 MG Tablet PO (16:39)
--- OUTSIDE RECORDS SUMMARY | 2024-07-11 17:37 | XMS RPT_ITS | CCD ---
Author Organization [facility] CliniSynh Care Team Providers Care Braider Operator Name Role Phone CHRISTY YEIMY Unavailable Unavailable JINNY EXPRESSIVE MUSIC THERAPIST-PRESS WORKER HELPER, AMARILYS Peterson Primary Care Physicia n UMER BOYER DO Primary Care Physician ANDI EXPRESSIVE MUSIC THERAPIST-PRESS WORKER HELPER, ABDELRAHMAN Carvalho Primary Care Physi freda ANDI EXPRESSIVE MUSIC THERAPIST-PRESS WORKER HELPER, ABDELRAHMAN Carvalho Attending Un available ANDI EXPRESSIVE MUSIC THERAPIST-PRESS WORKER HELPER, ABDELRAHMAN A Primary Care Un available ANDI EXPRESSIVE MUSIC THERAPIST-PRESS WORKER HELPER, ABDELRAHMAN A Attending Un available ANDI EXPRESSIVE MUSIC THERAPIST-PRESS WORKER HELPER, ABDELRAHMAN A Primary Care Un available ANDI EXPRESSIVE MUSIC THERAPIST-PRESS WORKER HELPER, ABDELRAHMAN A Attending Un available ANDI EXPRESSIVE MUSIC THERAPIST-PRESS WORKER HELPER, ABDELRAHMAN A Primary Care Un available TEOFILO CORTES MD Attending Unavaila ble ANDI EXPRESSIVE MUSIC THERAPIST-PRESS WORKER HELPER, ABDELRAHMAN A Primary Care Un available DUSTIN EXPRESSIVE MUSIC THERAPIST-PRESS WORKER HELPER, GRISELDA Sharma Attending Gallo pineda ANDI EXPRESSIVE MUSIC THERAPIST-PRESS WORKER HELPER, ABDELRAHMAN A Primary Care Un available TEOFILO CORTES MD Attending Unavaila ble ANDI EXPRESSIVE MUSIC THERAPIST-PRESS WORKER HELPER, ABDELRAHMAN A Primary Care Un available DUSTIN EXPRESSIVE MUSIC THERAPIST-PRESS WORKER HELPER, GRISELDA Sharma Attending Unavai lable ANDI EXPRESSIVE MUSIC THERAPIST-PRESS WORKER HELPER, ABDELRAHMAN A Primary Care Un available DUSTIN EXPRESSIVE MUSIC THERAPIST-PRESS WORKER HELPER, GRISELDA Sharma Attending Unavai laboleg ESCAMILLA EXPRESSIVE MUSIC THERAPIST-PRESS WORKER HELPER, ABDELRAHMAN A Primary Care Un available TEOFILO CORTES MD Attending Unavaila ble ANDI EXPRESSIVE MUSIC THERAPIST-PRESS WORKER HELPER, ABDELRAHMAN A Primary Care Un available TEOFILO CORTES MD Attending Unavaila ble ANDI EXPRESSIVE MUSIC THERAPIST-PRESS WORKER HELPER, ABDELRAHMAN A Primary Care Un available TEOFILO CORTES MD Attending Siobhan HATCH, ABDELRAHMAN Carvalho Primary Care Un available FAVIAN CHAPMAN, DR NANDO Peña Attending Gallo HATCH, ABDELRAHMAN Carvalho Primary Care Un available TEOFILO CORTES MD Attending Siobhan HATCH, ABDELRAHMAN Carvalho Primary Care Un available ANDI HATCH, ABDELRAHMAN Carvalho Attending Un available ANDI HATCH, ABDELRAHMAN Carvalho Primary Care Un available Medications Current Medications Medication Drug Class(es) Dates Sig (Normalized) Sig (Original) acetaminophen 325 mg / oxyCODONE hydrochloride 5 mg oral tablet (1 source) Opioid Agonist Start: 09-06-2021 take 1 tablet by mouth every four hours as needed for pain Percocet 5 mg-325 mg oral tablet Dose = 1 tab(s), Oral, q4h, PRN as needed for pain, # 25 tab(s), 0 Refill(s), 69.5 Start Date: 09/06/21 Status: Ordered diphenhydrAMINE hydrochloride 25 mg oral capsule (19 sources) Histamine-1 Receptor Antagonist Start: 09-03-2021 Z-Sleep 25 mg oral capsule Dose : 50 mg = 2 cap(s), Oral, qHS, PRN as needed for insomnia, 0 Refill(s) Start Date: 09/03/21 Status: Ordered Start: 12-17-2020 take 1 mg by mouth e very six hours diphenhydrAMINE 12.5 mg/5 mL oral liquid mg = mL, Oral, q6hr, 0 Refill(s) Start Date: 12/17/20 Status: Ordered DULoxetine 30 mg delayed release oral capsule (8 sources) Serotonin and Norepinephrine Reuptake Inhibitor Start: 05-11-2024 Cymbalta 30 mg oral delayed release capsule Dose : 30 mg = 1 cap(s), Oral, qDay, do not crush or chew, # 90 cap(s), 3 Refill(s), Pharmacy: [facility]/pharmacy #[id number], Anxiety, 164, cm, 05/11/24 11:30:00 EDT, Height, kg, 05/11/24 11:30:00 EDT, Dosing Weight Start Date: 05/11/24 Status: Ordered Start: 05-29-2023 End: 07-28-2023 Cymbalta 30 mg oral delayed release capsule Dose : 30 mg = 1 cap(s), Oral, qDay, do not crush or chew, # 90 cap(s), 3 Refill(s), Pharmacy: [facility]/pharmacy #[id number], Anxiety, 162.6, cm, 06/12/23 13:59:00 EDT, Height, kg, 06/12/23 13:59:00 EDT, Dosing Weight Start Date: 06/25/23 Status: Ordered Fish Oils (18 sources) Start: 09-03-2021 Fish Oil 1000 mg oral capsule Dose : 1,000 mg = 1 cap(s), Oral, qAM, 0 Refill(s) Start Date: 09/03/21 Status: Ordered FLUoxetine 10 mg oral tablet (3 sources) Serotonin Reuptake Inhibitor Start: 04-30-2023 FLUoxetine (Eqv-PROzac) 10 mg oral tablet Dose : 10 mg = 1 tab(s), Oral, qDay, # 30 tab(s), 0 Refill(s), Pharmacy: [facility]/pharmacy #[id number], Mild recurrent major depression, 162.5, cm, 04/30/23 11:13:00 EDT, Height Start Date: 04/30/23 Status: Ordered Start: 01-09-2021 End: 01-04-2022 FLUoxetine 10 mg oral tablet Dose : 10 mg = 1 tab(s), Oral, qDay, # 90 tab(s), 3 Refill(s), Pharmacy: [facility]/pharmacy #[id number], 162.6, cm, 01/09/21 7:35:00 EDT, Height, kg, 01/09/21 7:35:00 EDT, Dosing Weight Start Date: 01/09/21 Stop Date: 01/04/22 Status: Ordered letrozole 2.5 mg oral tablet (19 sources) Aromatase Inhibitor Start: 10-05-2023 letrozole 2.5 mg oral tablet Dose : 2.5 mg = 1 tab(s), Oral, qDay, TAKE 1 TABLET BY MOUTH EVERY DAY, # 30 tab(s), 11 Refill(s), Pharmacy: [facility]/pharmacy #[id number], 162, cm, 09/21/23 17:08:00 EST, Height, kg, 09/21/23 17:08:00 EST, Dosing Weight Start Date: 10/05/23 Status: Ordered Start: 07-13-2023 letrozole 2.5 mg oral tablet Dose : 2.5 mg = 1 tab(s), Oral, qAM, TAKE 1 TABLET BY MOUTH EVERY DAY, # 30 tab(s), 4 Refill(s), Pharmacy: [facility]/pharmacy #[id number], 162.6, cm, 07/03/23 14:39:00 EDT, Height, kg, 07/03/23 14:39:00 EDT, Dosing Weight Start Date: 07/13/23 Status: Ordered Start: 11-27-2022 letrozole 2.5 mg oral tablet Dose : 2.5 mg = 1 tab(s), Oral, qAM, TAKE 1 TABLET BY MOUTH EVERY DAY, # 30 tab(s), 4 Refill(s), Pharmacy: [facility]/pharmacy #[id number], 162.6, cm, 09/01/22 13:09:00 EST, Height, kg, 09/01/22 13:09:00 EST, Dosing Weight Start Date: 11/27/22 Status: Ordered Start: 09-01-2022 letrozole 2.5 mg oral tablet Dose : 2.5 mg = 1 tab(s), Oral, qAM, TAKE 1 TABLET BY MOUTH EVERY DAY, # 30 tab(s), 4 Refill(s), Pharmacy: [facility]/pharmacy #[id number], 162.6, cm, 08/18/22 12:52:00 EDT, Height, kg, 08/18/22 12:52:00 EDT, Dosing Weight Start Date: 09/01/22 Status: Ordered Start: 05-30-2022 letrozole 2.5 mg oral tablet Dose : 2.5 mg = 1 tab(s), Oral, qAM, TAKE 1 TABLET BY MOUTH EVERY DAY, # 30 tab(s), 4 Refill(s), Pharmacy: [facility]/pharmacy #[id number], 162.6, cm, 03/03/22 14:07:00 EDT, Height Start Date: 05/30/22 Status: Ordered Start: 06-20-2021 letrozole 2.5 mg oral tablet Dose : 2.5 mg = 1 tab(s), Oral, qAM, TAKE 1 TABLET BY MOUTH EVERY DAY Start Date: 06/20/21 Status: Ordered levothyroxine sodium 0.025 mg oral tablet (7 sources) l-Thyroxine Start: 09-21-2023 End: 09-15-2024 levothyroxine 25 mcg (0.025 mg) oral tablet Dose : 25 mcg = 1 tab(s), Oral, qDay, # 90 tab(s), 3 Refill(s), [id number], Hypothyroidism, 162, cm, 09/21/23 17:08:00 EST, Height, kg, 09/21/23 17:08:00 EST, Dosing Weight Start Date: 09/21/23 Stop Date: 09/15/24 Status: Ordered Start: 05-29-2023 End: 07-28-2023 levothyroxine 25 mcg (0.025 mg) oral tablet Dose : 25 mcg = 1 tab(s), Oral, qDay, # 90 tab(s), 0 Refill(s), [id number], Hypothyroidism, 162.6, cm, 06/12/23 13:59:00 EDT, Height, kg, 06/12/23 13:59:00 EDT, Dosing Weight Start Date: 06/25/23 Status: Ordered loratadine 10 mg oral capsul e (19 sources) Start: 06-20-2019 loratadine 10 mg oral capsule Dose : 10 mg = 1 cap(s), Oral, qAM, # 10 cap(s), 0 Refill(s) Start Date: 06/20/19 Status: Ordered melatonin 5 mg oral tablet (19 sources) Start: 09-03-2021 melatonin 5 mg oral tablet Dose : 5 mg = 1 tab(s), Oral, qHS, PRN as needed for insomnia, # 60 tab(s), 0 Refill(s) Start Date: 09/03/21 Status: Ordered Start: 12-17-2020 melatonin 10 m g oral tablet, extended release Dose : 10 mg = 1 tab(s), Oral, qHS, PRN as needed for sleep, # 60 tab(s), 0 Refill(s) Start Date: 12/17/20 Status: Ordered metoprolol tartrate 50 mg oral tablet (19 sources) beta-Adrenergic Jolie Start: 11-27-2023 End: 05-06-2025 Metoprolol Succinate ER 50 mg oral TABLET extended release Dose : 50 mg = 1 tab(s), Oral, qDay, # 90 tab(s), 3 Refill(s), [id number], Hypertension, 164, cm, 05/11/24 11:30:00 EDT, Height, kg, 05/11/24 11:30:00 EDT, Dosing Weight Start Date: 05/11/24 Stop Date: 05/06/25 Status: Ordered Start: 05-18-2023 End: 11-14-2023 Metoprolol Succinate ER 50 m g oral TABLET extended release Dose : 50 mg = 1 tab(s), Oral, qDay, # 90 tab(s), 1 Refill(s), [id number], Hypertension, 162.5, cm, 05/18/23 12:31:00 EDT, Height, kg, 05/18/23 12:31:00 EDT, Dosing Weight Start Date: 05/18/23 Stop Date: 11/14/23 Status: Ordered Start: 04-30-2023 Metoprolol Suc cinate ER 50 mg oral TABLET extended release Dose : 50 mg = 1 tab(s), Oral, qDay, # 30 tab(s), 0 Refill(s), [id number], Hypertension, 162.5, cm, 04/30/23 11:13:00 EDT, Height Start Date: 04/30/23 Status: Ordered Start: 01-09-2021 End: 12-13-2022 Metoprolol Succinate ER 25 m g oral TABLET extended release Dose : 25 mg = 1 tab(s), Oral, qDay, # 60 tab(s), 0 Refill(s), Pharmacy: [facility]/pharmacy #[id number], 162.6, cm, 09/01/22 13:09:00 EST, Height, kg, 09/01/22 13:09:00 EST, Dosing Weight Start Date: 11/12/22 Status: Ordered Probiotic (19 sources) Start: 06-15-2019 take 1 tablet by mouth once daily in the morning Probiotic See Instructions, 1 TAB Oral qAM, 0 Refill(s) Start Date: 06/15/19 Status: Ordered sertraline 25 mg oral tablet (1 source) Serotonin Reuptake Inhibitor Start: 05-18-2023 End: 08-16-2023 sertraline 25 mg oral tablet Dose : 25 mg = 1 tab(s), Oral, Daily, # 30 tab(s), 2 Refill(s), Pharmacy: [facility]/pharmacy #[id number], Anxiety, 162.5, cm, 05/18/23 12:31:00 EDT, Height, kg, 05/18/23 12:31:00 EDT, Dosing Weight Start Date: 05/18/23 Stop Date: 08/16/23 Status: Ordered Vitamin B Complex oral tablet (8 sources) Start: 09-03-2021 take 1 tablet by mouth once daily in the morning Vitamin B Complex oral tablet Dose = 1 tab(s), Oral, qAM, 0 Refill(s) Start Date: 09/03/21 Status: Ordered Completed/Discontinued Medications Medication Drug Class(es) Dates Sig (Normalized) Sig (Original) amLODIPine 5 mg oral tablet (5 sources) Dihydropyridine Calcium Channel Jolie Start: 09-21-2023 End: 03-19-2024 amLODIPine 5 mg oral tablet Dose : 5 mg = 1 tab(s), Oral, qHS, # 90 tab(s), 1 Refill(s), Pharmacy: [facility]/pharmacy #[id number], 162, cm, 09/21/23 17:08:00 EST, Height, kg, 09/21/23 17:08:00 EST, Dosing Weight Start Date: 09/21/23 Stop Date: 03/19/24 Status: Ordered Start: 09-03-2023 amLODIPine 5 m g oral tablet Dose : 5 mg = 1 tab(s), Oral, qHS, # 30 tab(s), 0 Refill(s), Pharmacy: [facility]/pharmacy #[id number], 162, cm, 09/03/23 15:15:00 EST, Height, kg, 09/03/23 15:15:00 EST, Dosing Weight Start Date: 09/03/23 Status: Ordered aspirin 81 mg oral tablet (6 sources) Platelet Aggregation Inhibitor, Nonsteroidal Anti-inflammatory Drug Start: 09-03-2023 take 1 tablet by mouth once daily [facility] ASP[facility]IN [facility] 81 MG TABLET [facility] ASPIRIN EC 81 MG TABLET, TAKE 1 TABLET BY MOUTH EVERY DAY Start Date: 11/9/23 Status: Ordered Problems Problem Classification Problem Date Documented Da te Episodic/Chronic Cancer of breast (20 sources) Carcinoma of breast - upper, inner quadrant; Translations: [Malignant neoplasm of upper-inner quadrant of female breast] 06-19-2021 Chronic Cancer of breast (19 sources) History of malignant neoplasm of breast 02-22-2020 Episodic Cardiac dysrhythmias (6 sources) Atrial fibrillation 09-03-2023 Chronic Essential hypertension (20 sources) Hypertensive disorder; Translations: [Essential (primary) hypertension] Onset: 09-21-2023 09-08-2019 Chronic Headache; including migraine (19 sources) Tension-type headache 09-08-2019 Chronic Headache; including migraine (10 sources) Temporal headache 04-30-2023 Episodic Melanomas of skin (15 sources) Malignant melanoma 02-26-2022 Chronic Mood disorders (20 sources) Depressive disorder; Translations: [Recurrent major depressive episodes, mild ] 12-17-2020 Chronic Neoplasms of unspecified nature or uncertain behavior (19 sources) Estrogen receptor positive tumor 06-14-2020 Episodic Other screening for suspected conditions (not mental disorders or infectious disease) (19 sources) Magnetic resonance imaging of breast abnormal 06-17-2019 Episodic Other skin disorders (10 sources) Lump on face 04-30-2023 Episodic Residual codes; unclassified (16 sources) Family history of breast cancer 11-15-2021 Episodic Residual codes; unclassified (16 sources) Family history of neoplasm 11-15-2021 Episodic Unclassified (19 sources) Annual wellness visit 09-08-2019 Unclassified (19 sources) Cancer cervix screening status 09-08-2019 Unclassified (20 sources) Patient encounter status 09-08-2019 Unclassified (15 sources) Malignant melanoma, no ICD-O subtype (morphologic abnormality) Onset: 01-08-2022 01-31-2022 Comment on above: abdomen (in situ) Unclassified (15 sources) Melanoma in situ 02-07-2022 Unclassified (13 sources) Family history of neoplasm of bronchus 08-22-2022 Unclassified (10 sources) Body mass index 20-24 - normal 04-30-2023 Unclassified (10 sources) Never used tobacco 04-30-2023 Results Test Name Value Interpretation Reference Range Facility US RENALon 05-25-2024 US RENAL ORIGINAL EXAMINATION: LIMITED RETROPERITONEAL ULTRASOUND05/25/2024 1:48 pm Ultrasound retroperitoneum Complete: Attention Urinary tract COMPARISON: None TECHNIQUE: This report is based on interpretation of permanently recorded ultrasound images. HISTORY: ORDERING SYSTEM PROVIDED HISTORY: Reason for Exam: CKDIII, reduced GFR and elevated creatinine, FINDINGS: Right kidney: 10.3 x 3.8 x 4.0 cm Left kidney: 10.9 x 4.7 x 4.6 cm The kidneys are normal in cortical thickness and echogenicity. No complex cystic or solid mass is seen. No shadowing echogenic focus is visualized. There is no pelvocaliectasis on either side. There is no free fluid seen in the abdomen. Incidental coarsening and increased echogenicity of liver. Urinary bladder is suboptimally distended with volume of only 39 cc. It is sonographically normal. There is only 6 cc of postvoid residual.. IMPRESSION: No obstruction or acute abnormality in the kidneys. Incidental evidence of diffuse hepatocellular disease likely fatty infiltration. Correlate with LFTs and follow-up as warranted.. Interpreted by: Simone Michaels MD Preliminary Report By: Simone Michaels MD Electronically signed By Simone Michaels MD Dictated Date: 05/25/2024 1:57:23 PM Prelim Date: 05/25/2024 1:58:38 PM Sign Date: 05/25/2024 1:58:38 PM Ordering Provider: ABDELRAHMAN ESCAMILLA Normal [facility]) PTHon 05-13-2024 PTH, Intact 35.7 pg/mL Normal 18.5-88.0 [facility]) Comment on above: Performed By: #### G FR, LIPID, [id number], CBC, ADIFF, ANEU, TSH, FT4, CMP #### [address] [address] QUANTTBon 05-12-2024 QFT Criteria Comment Normal [facility]) Comment on above: Result Comment: QuantiFERON-TB Gold Plus is a qualitative indirect test for M tuberculosis infection (including disease) and is intended for use in conjunction with risk assessment, radiography, and other medical and diagnostic evaluations. The QuantiFERON-TB Gold Plus result is determined by subtracting the Nil value from either TB antigen (Ag) value. The Mitogen tube serves as a control for the test. Performed By: #### G FR, LIPID, [id number], CBC, ADIFF, ANEU, TSH, FT4, CMP #### [place] [address] QFT Mitogen Value 0.01 IU/mL Normal [facility] ([place]) Comment on above: Performed By: #### G FR, LIPID, [id number], CBC, ADIFF, ANEU, TSH, FT4, CMP #### [place] [address] QFT Nil Value 0.00 IU/mL Normal [facility] ([place]) Comment on above: Performed By: #### G FR, LIPID, [id number], CBC, ADIFF, ANEU, TSH, FT4, CMP #### [place] [address] QFT TB1 Ag Value 0.01 IU/mL Normal [facility] ([place]) Comment on above: Performed By: #### G FR, LIPID, [id number], CBC, ADIFF, ANEU, TSH, FT4, CMP #### [place] [address] QFT TB2 Ag Value 0.03 IU/mL Normal [facility] ([place]) Comment on above: Performed By: #### G FR, LIPID, [id number], CBC, ADIFF, ANEU, TSH, FT4, CMP #### [place] [address] QFT-TB Gold Plus Clt Inc Indeterminate Abnormal Negative [facility] ([place]) Comment on above: Result Comment: Johnathon gen (positive control) gave low response. This may occur due to suboptimal pre-analytical handling. The specimen received for QuantiFERON testing was incubated by the ordering institution. Specific procedures outlined in our Directory of Services and in the package insert for the QuantiFERON Gold (In Tube) test must be followed to enable for proper stimulation of cells for the production of interferon gamma. Chemiluminescence immunoassay methodology Performed At: [facility] [id number] Noah Su PhD Ph:[phone] Performed By: #### G FR, LIPID, [id number], CBC, ADIFF, ANEU, TSH, FT4, CMP #### [address] [address] .Auto Diffon 05-11-2024 Basophil, Absolute 0.1 10 3/mcL Normal 0.0-0.2 [facility] ([place]) Comment on above: Performed By: #### G FR, LIPID, [id number], CBC, ADIFF, ANEU, TSH, FT4, CMP #### [address] [address] Basophils/100 WBC (Bld) 1.3 % Normal 0.0-2.5 [facility] ([place]) Comment on above: Performed By: #### G FR, LIPID, [id number], CBC, ADIFF, ANEU, TSH, FT4, CMP #### [address] [address] Eosinophil, Absolute 0.2 10 3/mcL Normal 0.0-0.4 [facility] ([place]) Comment on above: Performed By: #### G FR, LIPID, [id number], CBC, ADIFF, ANEU, TSH, FT4, CMP #### [address] [address] Eosinophils/100 WBC (Bld) 3.5 % Normal 0.0-7.0 [facility] ([place]) Comment on above: Performed By: #### G FR, LIPID, [id number], CBC, ADIFF, ANEU, TSH, FT4, CMP #### [address] [address] Lymphocyte, Absolute 1.7 10 3/mcL Normal 0.8-3.9 [facility] ([place]) Comment on above: Performed By: #### G FR, LIPID, [id number], CBC, ADIFF, ANEU, TSH, FT4, CMP #### [address] [address] Lymphocytes/100 WBC (Bld) 29.7 % Normal 10.0-50.0 [facility] ([place]) Comment on above: Performed By: #### G FR, LIPID, [id number], CBC, ADIFF, ANEU, TSH, FT4, CMP #### [address] [address] Monocyte, Absolute 0.5 10 3/mcL Normal 0.2-1.0 [facility] ([place]) Comment on above: Performed By: #### G FR, LIPID, [id number], CBC, ADIFF, ANEU, TSH, FT4, CMP #### [address] [address] Monocytes/100 WBC (Bld) 9.1 % Normal 1.7-13.0 [facility] ([place]) Comment on above: Performed By: #### G FR, LIPID, [id number], CBC, ADIFF, ANEU, TSH, FT4, CMP #### [address] [address] Neutrophils/100 WBC (Bld) 56.4 % Normal 37.0-80.0 [facility] ([place]) Comment on above: Performed By: #### G FR, LIPID, [id number], CBC, ADIFF, ANEU, TSH, FT4, CMP #### [address] [address] .GFRon 05-11-2024 GFR 57 ml/min/1.73sqm Normal [facility] ([place]) Comment on above: Result Comment: GFR Population mean for , Non- Americans Ages 20-29 = 116 mL/min/1.73 sq.m. Ages 30-39 = 107 mL/min/1.73 sq.m. Ages 40-49 = 99 mL/min/1.73 sq.m. Ages 50-59 = 93 mL/min/1.73 sq.m. Ages 60-69 = 85 mL/min/1.73 sq.m. Ages 70+ = 75 mL/min/1.73 sq.m. Chronic Kidney Disease: Less than 60 mL/min/1.73 square meters End Stage Renal Disease: Less than 15 mL/min/1.73 square meters Performed By: #### G FR, LIPID, [id number], CBC, ADIFF, ANEU, TSH, FT4, CMP #### [address] [address] GFR Non- 47 ml/min/1.73sqm Normal [facility] ([place]) Comment on above: Result Comment: GFR Population mean for , Non- Americans Ages 20-29 = 116 mL/min/1.73 sq.m. Ages 30-39 = 107 mL/min/1.73 sq.m. Ages 40-49 = 99 mL/min/1.73 sq.m. Ages 50-59 = 93 mL/min/1.73 sq.m. Ages 60-69 = 85 mL/min/1.73 sq.m. Ages 70+ = 75 mL/min/1.73 sq.m. Chronic Kidney Disease: Less than 60 mL/min/1.73 square meters End Stage Renal Disease: Less than 15 mL/min/1.73 square meters Performed By: #### G FR, LIPID, [id number], CBC, ADIFF, ANEU, TSH, FT4, CMP #### [address] [address] .NEUABSon 05-11-2024 Neutrophil, Absolute 3.3 10 3/mcL Normal 2.9-6.2 [facility] ([place]) Comment on above: Performed By: #### G FR, LIPID, [id number], CBC, ADIFF, ANEU, TSH, FT4, CMP #### [place] [id number] CBCon 05-11-2024 Erythrocyte distribution width (RBC) [Ratio] 12.9 % Normal 11.5-14.5 [facility] ([place]) Comment on above: Performed By: #### G FR, LIPID, [id number], CBC, ADIFF, ANEU, TSH, FT4, CMP #### [place] [address] Hematocrit (Bld) [Volume fraction] 39.7 % Normal 37.0-47.0 [facility] ([place]) Comment on above: Performed By: #### G FR, LIPID, [id number], CBC, ADIFF, ANEU, TSH, FT4, CMP #### [place] [address] Hgb 13.7 G/dL Normal 12.0-16.0 [facility] ([place]) Comment on above: Performed By: #### G FR, LIPID, [id number], CBC, ADIFF, ANEU, TSH, FT4, CMP #### [address] [address] MCH (RBC) [Entitic mass] 31.0 pg Normal 27.0-31.2 [facility] ([place]) Comment on above: Performed By: #### G FR, LIPID, [id number], CBC, ADIFF, ANEU, TSH, FT4, CMP #### [address] [address] MCHC 34.4 G/dL Normal 33.0-37.0 [facility] ([place]) Comment on above: Performed By: #### G FR, LIPID, [id number], CBC, ADIFF, ANEU, TSH, FT4, CMP #### [place] [address] MCV (RBC) [Entitic vol] 90.2 fL Normal 80.0-94.0 [facility] ([place]) Comment on above: Performed By: #### G FR, LIPID, [id number], CBC, ADIFF, ANEU, TSH, FT4, CMP #### [address] [address] Platelet 265 10 3/mcL Normal 130-400 [facility] ([place]) Comment on above: Performed By: #### G FR, LIPID, [id number], CBC, ADIFF, ANEU, TSH, FT4, CMP #### [address] [address] Platelet mean volume (Bld) [Entitic vol] 8.7 fL Normal 7.4-10.4 [facility] ([place]) Comment on above: Performed By: #### G FR, LIPID, [id number], CBC, ADIFF, ANEU, TSH, FT4, CMP #### [address] [address] RBC 4.41 10 6/mcL Normal 4.20-5.40 [facility] ([place]) Comment on above: Performed By: #### G FR, LIPID, [id number], CBC, ADIFF, ANEU, TSH, FT4, CMP #### [address] [address] WBC 5.9 10 3/mcL Normal 4.6-10.8 [facility] ([place]) Comment on above: Performed By: #### G FR, LIPID, [id number], CBC, ADIFF, ANEU, TSH, FT4, CMP #### [address] [address] CMPon 05-11-2024 Albumin Level 4.3 G/dL Normal 3.5-5.0 [facility] ([place]) Comment on above: Performed By: #### G FR, LIPID, [id number], CBC, ADIFF, ANEU, TSH, FT4, CMP #### [address] [address] Albumin/Globulin [Mass ratio] 1.4 {ratio} Normal 1.1-2.5 [facility] ([place]) Comment on above: Performed By: #### G FR, LIPID, [id number], CBC, ADIFF, ANEU, TSH, FT4, CMP #### [address] [address] ALP [Catalytic activity/Vol] 78 U/L Normal 40-135 [facility] ([place]) Comment on above: Performed By: #### G FR, LIPID, [id number], CBC, ADIFF, ANEU, TSH, FT4, CMP #### [address] [address] ALT [Catalytic activity/Vol] 51 U/L Normal 14-59 [facility] ([place]) Comment on above: Performed By: #### G FR, LIPID, [id number], CBC, ADIFF, ANEU, TSH, FT4, CMP #### [address] [address] AST [Catalytic activity/Vol] 28 U/L Normal 10-40 [facility] ([place]) Comment on above: Performed By: #### G FR, LIPID, [id number], CBC, ADIFF, ANEU, TSH, FT4, CMP #### [address] [address] Bili Total 0.9 mg/dL Normal 0.2-1.0 [facility] ([place]) Comment on above: Result Comment: Use of this assay is not recommended for patients undergoing treatment with eltrombopag due to the potential for falsely elevated results. Performed By: #### G FR, LIPID, [id number], CBC, ADIFF, ANEU, TSH, FT4, CMP #### [address] [address] BUN/Creatinine Ratio 13 ratio Normal 7-27 [facility] ([place]) Comment on above: Performed By: #### G FR, LIPID, [id number], CBC, ADIFF, ANEU, TSH, FT4, CMP #### [address] [address] Calcium [Mass/Vol] 9.8 mg/dL Normal 8.4-10.2 [facility] ([place]) Comment on above: Performed By: #### G FR, LIPID, [id number], CBC, ADIFF, ANEU, TSH, FT4, CMP #### [address] [address] Chloride [Moles/Vol] 103 mmol/L Normal 98-107 [facility] ([place]) Comment on above: Performed By: #### G FR, LIPID, [id number], CBC, ADIFF, ANEU, TSH, FT4, CMP #### [address] [address] CO2 [Moles/Vol] 27 mmol/L Normal 22-29 [facility] ([place]) Comment on above: Performed By: #### G FR, LIPID, [id number], CBC, ADIFF, ANEU, TSH, FT4, CMP #### [address] [address] Creatinine [Mass/Vol] 1.18 mg/dL High 0.55-1.02 [facility] ([place]) Comment on above: Performed By: #### G FR, LIPID, [id number], CBC, ADIFF, ANEU, TSH, FT4, CMP #### [address] [address] Electrolyte Balance 8.0 mEq/L Normal 4.0-15.0 [facility] ([place]) Comment on above: Performed By: #### G FR, LIPID, [id number], CBC, ADIFF, ANEU, TSH, FT4, CMP #### [address] [address] Globulin 3.0 G/dL Normal [facility] ([place]) Comment on above: Performed By: #### G FR, LIPID, [id number], CBC, ADIFF, ANEU, TSH, FT4, CMP #### [address] [address] Glucose [Mass/Vol] 121 mg/dL High 70-105 [facility] ([place]) Comment on above: Performed By: #### G FR, LIPID, [id number], CBC, ADIFF, ANEU, TSH, FT4, CMP #### [address] [address] Potassium [Moles/Vol] 4.5 mmol/L Normal 3.5-5.1 [facility] ([place]) Comment on above: Performed By: #### G FR, LIPID, [id number], CBC, ADIFF, ANEU, TSH, FT4, CMP #### [address] [address] Sodium [Moles/Vol] 138 mmol/L Normal 136-145 [facility] ([place]) Comment on above: Performed By: #### G FR, LIPID, [id number], CBC, ADIFF, ANEU, TSH, FT4, CMP #### [address] [address] Total Protein 7.3 G/dL Normal 6.4-8.2 [facility] ([place]) Comment on above: Performed By: #### G FR, LIPID, [id number], CBC, ADIFF, ANEU, TSH, FT4, CMP #### [address] [address] Urea nitrogen [Mass/Vol] 15 mg/dL Normal 7-18 [facility] ([place]) Comment on above: Performed By: #### G FR, LIPID, [id number], CBC, ADIFF, ANEU, TSH, FT4, CMP #### [address] [address] FT4on 05-11-2024 Free T4 [Mass/Vol] 0.75 ng/dL Low 0.76-1.46 [facility] ([place]) Comment on above: Performed By: #### G FR, LIPID, [id number], CBC, ADIFF, ANEU, TSH, FT4, CMP #### [address] [address] LIPIDon 05-11-2024 Cholesterol [Mass/Vol] 195 mg/dL Normal 0-200 [facility] ([place]) Comment on above: Result Comment: Chol esterol Reference Interval: Less than 200 Desirable 200-239 Borderline high risk 240 and above High risk Performed By: #### G FR, LIPID, [id number], CBC, ADIFF, ANEU, TSH, FT4, CMP #### [address] [address] Cholesterol in HDL [Mass/Vol] 74 mg/dL High 40-60 [facility] ([place]) Comment on above: Performed By: #### G FR, LIPID, [id number], CBC, ADIFF, ANEU, TSH, FT4, CMP #### [address] [address] Cholesterol in LDL [Mass/Vol] 111 mg/dL Normal 0-130 [facility] ([place]) Comment on above: Performed By: #### G FR, LIPID, [id number], CBC, ADIFF, ANEU, TSH, FT4, CMP #### [address] [address] Triglyceride [Mass/Vol] 48 mg/dL Normal 0-150 [facility] ([place]) Comment on above: Result Comment: Trig lyceride Reference Interval: Less than 150 Normal 150-199 Borderline high risk 200-499 High risk 500 or higher Very high risk Performed By: #### G FR, LIPID, [id number], CBC, ADIFF, ANEU, TSH, FT4, CMP #### [id number] [place], [place] [address] TSHon 05-11-2024 TSH Qn 1.08 m[IU]/L Normal 0.36-3.74 [facility] ([place]) Comment on above: Performed By: #### G FR, LIPID, [id number], CBC, ADIFF, ANEU, TSH, FT4, CMP #### [address] [address] BD [facility] BD BONE DENSITY DEXA AXIAL [place] ORIGINAL EXAMINATION: BONE DENSITOMETRY03/29/2024 2:32 pm TECHNIQUE: Dual energy bone densitometry lumbar spine and left hip. COMPARISON: 03/21/2022 HISTORY: Reason for Exam: Cancer follow up Osteoporosis screening. FINDINGS: T Score Left Femoral Neck: -0.6 Left Femoral Neck: 0.782 (g/cm2) T Score Left Hip: -0.2 Left Hip: 0.923 (g/cm2) T Score Lumbar Spine: -1.3 Lumbar Spine: 0.903 (g/cm2) BMD Change from previous Hip:-6.1 %, significant BMD Change from previous Lumbar Spine:-4.4 %, significant FRAX score: 10 year risk major osteoporotic fracture 6.1 %. 10 year risk hip fracture 0.2 %. The BHOF f/k/a NOF recommends that FDA-approved medical therapies be considered in post-menopausal women and men age >/= 50 years with a: * Hip or vertebral fracture, or * T-score of /= 20% for major osteoporotic fractures or * >/= 3% for hip fractures All treatment decisions require clinical judgement and consideration of individual patient factors, including patient preferences, comorbidities, previous drug use, risk factors not captured in the FRAX registered model (e.g., frailty, falls, vitamin D deficiency, increased bone turnover, interval significant decline in bone density) and possible under- or over-estimation of fracture risk by FRAX. IMPRESSION: Osteopenia. Interpreted by: Yudi Dumont MD Preliminary Report By: Escobar Fabian Electronically signed By Yudi Dumont MD Dictated Date: 03/30/2024 10:01:11 AM Prelim Date: 03/31/2024 11:01:02 AM Sign Date: 03/31/2024 11:01:02 AM Ordering Provider: TEOFILO CORTES Normal [facility] ([place]) Yaneth 09-22-2023 U Creatinine 46.5 mg/dL Normal 28.0-117.0 [facility]) Comment on above: Performed By: #### M ALBR #### [facility] [place] [facility] [address] [place], [place] [address] U Microalb 774 mcg/dL Normal [facility]) Comment on above: Performed By: #### M ALBR #### [facility] [place] [facility] [address] [place], [place] [address] U Ratio Alb/Cre 17 mcg/mg Normal 0-30 [facility]) Comment on above: Performed By: #### M ALBR #### [address] [address] LABORATORYOrdered By: Robert Laguerre on 09-21-2023 Albumin DL <= 20 mg/L (U) [Mass/Vol] 774 mcg/dL Invalid Interpretation Code AO ADM SS Albumin/Creatinine DL <= 20 mg/L (U) [Mass ratio] 17 mcg/mg Normal 0 - 30 mcg/mg AO ADM SS Creatinine (U) [Mass/Vol] 46.5 mg/dL Normal 28.0 - 117.0 mg/dL AO ADM SS US SOFT TISSUE Bharti 2022 US SOFT TISSUE MASS ORIGINAL EXAMINATION: SOFT TISSUE PEQQZXYGAZ39/20/2023 1:12 pm TECHNIQUE: Grayscale and Doppler sonographic evaluation of the right scalp, temporal region. COMPARISON: Ultrasound soft tissue 05/05/2023, MRI brain 06/01/2023 HISTORY: ORDERING SYSTEM PROVIDED HISTORY: Reason for Exam: Right uatsdin FINDINGS: Redemonstration of hypoechoic/heterogenous well-defined ovoid lesion within the subcutaneous tissues/temporalis musculature of the right scalp. Lesion currently measures 1.5 x 1.3 x 0.3 cm. No internal vascularity. Question central echogenicity which may represent a fatty hilum. The lesion is slightly smaller when compared to the prior ultrasound, and overall sonographic appearance is not significantly changed. IMPRESSION: Findings suggestive of a right scalp hematoma or possibly a preauricular lymph node. This appears to have mildly decreased in size compared to prior. Other benign and neoplastic conditions are not entirely excluded. Continued clinical follow-up is recommended. I have personally reviewed the images of this examination and agree with the resident's findings and interpretation. Interpreted by: Segun Soto MD Preliminary Report By: Miguel Dickson Electronically signed By Segun Soto MD Dictated Date: 09/15/2023 9:04:01 AM Prelim Date: 09/15/2023 11:41:12 AM Sign Date: 09/15/2023 11:41:12 AM Ordering Provider: TEOFILO Garcia [facility] ([place]) MA MAMMOGRAM SCREENING BILAT ERAL W/TOMOon 08-03-2023 MA MAMMOGRAM SCREENING BILATERAL W/DEAN ORIGINAL FROM: [address] [address] PROCEDURE FOR: ANNE CARY [address] [place] [id number] Home: PID#: [id number] Exam#: [id number] : 1965 Age: 57 TO: TEOFILO CORTES MD [address] [place], [place] [address] Fax: NO FAX EXAMINATION: SCREENING DIGITAL BILATERAL MAMMOGRAM WITH TOMOSYNTHESIS, 08/03/2023 1:07 pm TECHNIQUE: Screening mammography of the bilateral breasts was performed with tomosynthesis. 2D standard and 3D tomosynthesis combination imaging performed through both breasts in the MLO and CC projection. Computer aided detection was utilized in the interpretation of this exam. COMPARISON: 09/08/2022, 08/20/2021 HISTORY: Breast cancer screening. FINDINGS: BREAST DENSITY: Scattered fibroglandular tissue There are postoperative changes in the right breast. There are benign appearing calcifications in both breasts. There are no significant masses or calcifications. IMPRESSION: No mammographic evidence of malignancy. Continued screening with annual mammograms is recommended. Tyrmarshall Cuzick risk calculations do not apply for this patient. BIRADS: MAMMOGRAM BI-RADS: 2: Benign finding RECALL: 1 year screening RECALL TYPE: mammo LETTER SENT: Normal BI-RADS 1 and 2 Interpreted by: Miguel Rashid MD Preliminary Report By: Miguel Rashid MD Electronically signed By Miguel Rashid MD Dictated Date: 08/03/2023 3:39:51 PM Prelim Date: 08/03/2023 3:53:33 PM Sign Date: 08/03/2023 3:53:33 PM Ordering Provider: TEOFILO CORTES copy to: GRISELDA CHAN APRN PRESS WORKER HELPER, ph: [phone], fax: NO FAX Lumber Checker: THELMA GARDINER RT (R) (M) (CT) letter sent: Normal BI-RADS 1 and 2 Mammogram BI-RADS: 2 Benign Normal [facility] ([place]) MO BONE IMAGING WHOLE BODYon 06-22-2023 NM BONE IMAGING WHOLE BODY ORIGINAL EXAMINATION: WHOLE BODY BONE SCAN06/22/2023 2:20 pm TECHNIQUE: The patient received an intravenous injection of 28.2 mCi of Tc-99m MDP. Anterior and posterior images of the skeleton from skull vertex to feet were then acquired. Additional regional skeletal images were also obtained. COMPARISON: CT head 05/13/2023, MRI brain 06/01/2023 HISTORY: ORDERING SYSTEM PROVIDED HISTORY: Reason for Exam: breast cancer, abnormal MRI brain, chronic bilateral hip and ankle pain, low back pain x2 months FINDINGS: There are no suspicious foci of radiotracer uptake to suggest osseous metastatic disease. No focal uptake is visualized in the region of the left parietal calvarium. There are areas of arthritic uptake including the shoulders and hips bilaterally Activity in the bilateral kidneys and the urinary bladder represent normal route of radiopharmaceutical excretion. The soft tissue distribution of radiotracer activity is within normal limits. IMPRESSION: No evidence of active osseous metastatic disease. Specifically, no focal uptake is visualized in the region of the indeterminate enhancing focus in the left parietal calvarium seen on prior MR. I have personally reviewed the images of this examination and agree with the resident's findings and interpretation. Interpreted by: Miguel Grimes DO Preliminary Report By: Reynold Interiano Electronically signed By Miguel Grimes DO Dictated Date: 06/22/2023 3:42:42 PM Prelim Date: 06/22/2023 4:39:49 PM Sign Date: 06/22/2023 4:39:49 PM Ordering Provider: TEOFILO Garcia [facility] ([place]) MRI BRAIN W/ + W/O CONTRASTo n 06-04-2023 MRI BRAIN W/ + W/O CONTRAST ORIGINAL EXAMINATION: MRI OF THE BRAIN WITHOUT AND WITH CONTRAST 06/01/2023 2:05 pm TECHNIQUE: Multiplanar multisequence MRI of the head/brain was performed without and with the administration of intravenous contrast. COMPARISON: CT brain 05/13/2023 and ultrasound soft tissue of the head and neck 05/05/2023 HISTORY: ORDERING SYSTEM PROVIDED HISTORY: Reason for Exam: right uatsdin pain and palpable mass FINDINGS: Within the right frontotemporal scalp situated within the temporalis muscle is a well-circumscribed ovoid structure measuring 1.4 x 0.5 x 1.4 cm (AP by transverse by craniocaudal dimension). It is T2 and FLAIR hyperintense peripherally and hypointense centrally. It demonstrates DWI hyperintensity. Centrally it demonstrates gradient hypointensity and T1 shortening. There appears to be peripheral enhancement with a thin septation. This finding appears isodense on recent CT. The finding is nonspecific but likely an evolving hematoma. Other etiologies are not excluded. There is a 1 cm ovoid T1 hypointense, T2 hyperintense enhancing focus in the left parietal calvarium. This is indeterminate. There is a similar 1 cm hyperintense focus in the right occipital calvarium which demonstrates precontrast T1 shortening. Therefore, this likely represents marrow fat or other benign process including osseous hemangioma. No midline shift, mass effect or hydrocephalus. No abnormal parenchymal signal or enhancement. No acute infarct or hemorrhage. Basilar cisterns patent. Sinuses and mastoids grossly clear. IMPRESSION: 1.4 cm heterogeneous signal enhancing lesion within the right frontotemporal scalp remains indeterminate but is most likely a hematoma. Follow-up to resolution. Indeterminate 1 cm enhancing focus in the left parietal calvarium. Metastatic lesion cannot be excluded. Correlate with bone scan. 1 cm T1 and T2 hyperintense focus in the right occipital calvarium is likely a benign process such as marrow fat or osseous hemangioma. Interpreted by: Richard Bell Preliminary Report By: Richard Bell Electronically signed By Richard Bell Dictated Date: 06/04/2023 12:40:43 PM Prelim Date: 06/04/2023 1:37:29 PM Sign Date: 06/04/2023 1:37:29 PM Ordering Provider: ABDELRAHMAN Garcia [facility] ([place]) LABORATORYOrdered By: Cheyenne Dehspande on 09-06-2021 Beta HCG ( test) Ql (U) Negative (09/06/21 7:38 AM) [facility] Work Phone: LABORATORYOrdered By: SYSTEM SYSTEM on 09-03-2021 Basophils (Bld) [#/Vol] 0.10 103/mcL Invalid Interpretation Code 0.00 - 0.27 10^3/mcL AH Remisol SS Basophils/100 WBC (Bld) 1.2 % Invalid Interpretation Code 0.0 - 2.5 % AH Remisol SS Calcium [Mass/Vol] 9.8 mg/dL Invalid Interpretation Code 8.7 - 10.4 mg/dL AH ADM SS Chloride [Moles/Vol] 110 mmol/L Invalid Interpretation Code 98 - 110 mEq/L AH ADM SS CO2 [Moles/Vol] 27 mmol/L Invalid Interpretation Code 22 - 32 mEq/L AH ADM SS Creatinine [Mass/Vol] 0.84 mg/dL Invalid Interpretation Code 0.50 - 1.20 mg/dL AH ADM SS Electrolyte Balance 6.0 mEq/L Invalid Interpretation Code 4.0 - 15.0 mEq/L AH ADM SS Eosinophils (Bld) [#/Vol] 0.10 103/mcL Invalid Interpretation Code 0.00 - 0.65 10^3/mcL AH Remisol SS Eosinophils/100 WBC (Bld) 2.7 % Invalid Interpretation Code 0.0 - 6.0 % AH Remisol SS Erythrocyte distribution width (RBC) [Ratio] 12.8 % Invalid Interpretation Code 11.5 - 15.5 % AH Remisol SS GFR/1.73 sq M.predicted among blacks MDRD (S/P/Bld) [Vol rate/Area] ml/min/1.73sqm Invalid Interpretation Code AH Chemistry S GFR/1.73 sq M.predicted among non-blacks MDRD (S/P/Bld) [Vol rate/Area] ml/min/1.73sqm Invalid Interpretation Code Chemistry S Glucose [Mass/Vol] 93 mg/dL Invalid Interpretation Code 70 - 110 mg/dL AH ADM SS Hematocrit (Bld) [Volume fraction] 37.0 % Invalid Interpretation Code 34.0 - 46.0 % AH Remisol SS Hemoglobin (Bld) [Mass/Vol] 12.8 G/dL Invalid Interpretation Code 12.0 - 16.0 G/dL AH Remisol SS Lymphocytes (Bld) [#/Vol] 1.70 103/mcL Invalid Interpretation Code 0.90 - 4.32 10^3/mcL AH Remisol SS Lymphocytes/100 WBC (Bld) 39.0 % Invalid Interpretation Code 20.0 - 40.0 % AH Remisol SS MCH (RBC) [Entitic mass] 30.3 pg Invalid Interpretation Code 27.0 - 33.0 pg AH Remisol SS MCHC (RBC) [Mass/Vol] 34.6 G/dL Invalid Interpretation Code 32.0 - 36.0 G/dL AH Remisol SS MCV (RBC) [Entitic vol] 87.6 fL Invalid Interpretation Code 80.0 - 99.0 fL AH Remisol SS Monocytes (Bld) [#/Vol] 0.50 103/mcL Invalid Interpretation Code 0.09 - 1.40 10^3/mcL AH Remisol SS Monocytes/100 WBC (Bld) 11.1 % Invalid Interpretation Code 2.0 - 13.0 % AH Remisol SS Neutrophils (Bld) [#/Vol] 2.00 103/mcL Invalid Interpretation Code 2.25 - 8.10 10^3/mcL AH Remisol SS Neutrophils/100 WBC (Bld) 46.0 % Invalid Interpretation Code 50.0 - 75.0 % AH Remisol SS Platelet mean volume (Bld) [Entitic vol] 8.4 fL Invalid Interpretation Code 6.6 - 10.5 fL AH Remisol SS Platelets (Bld) [#/Vol] 246 103/mcL Invalid Interpretation Code 150 - 450 10^3/mcL AH Remisol SS Potassium [Moles/Vol] 4.5 mmol/L Invalid Interpretation Code 3.5 - 5.0 mEq/L AH ADM SS RBC (Bld) [#/Vol] 4.22 106/mcL Invalid Interpretation Code 4.10 - 5.30 10^6/mcL AH Remisol SS Sodium [Moles/Vol] 143 mmol/L Invalid Interpretation Code 136 - 145 mEq/L AH ADM SS Urea nitrogen [Mass/Vol] 18.0 mg/dL Invalid Interpretation Code 8.0 - 22.0 mg/dL AH ADM SS Urea nitrogen/Creatinine [Mass ratio] 21.4 ratio Invalid Interpretation Code 10.0 - 22.0 ratio AH ADM SS WBC (Bld) [#/Vol] 4.40 103/mcL Invalid Interpretation Code 4.50 - 10.80 10^3/mcL AH Remisol SS PROGRESSon 07-27-2018 Protein mass conc HNO ID: [id number] thor: Jhon ([facility]) NossService: (none)Author Type: Genetic CounselorType: Progress NotesFiled: 08/10/2018 11:56 AMNote Text:[facility] MEDICINE WAVERLYCenter For Personalized Genetic HealthcareConsultation NoteGenetic Counselor: Jhon Phillips, MS, [facility] HOSPITALatient: Anne CaryMRN: [id number] Name and confirmed at initiation of visit. Appointmentoccurred via telecommunications.HIGH LEVEL SUMMARY:? The patient's family history is potentially suggestive of a hereditarycancer syndrome.? The patient provided informed consent for Common Hereditary CancersPanel through [facility]. Results are expected in 2-3 weeks.? Genetic counseling and consideration of genetic testing is recommendedfor the patient's sister with breast cancer.? The patient's estimated lifetime risk of breast cancer is 20-25% basedon the Tyrer-Cuzick Model. She should discuss screening options with herphysician.IDENTIFICATI ON AND CHIEF COMPLAINT:Dr. Yeimy Candelario requested a consultation for genetic counseling andrisk assessment for Anne Cary, a 52 year old female, for discussionof her family history of breast cancer. She presents to clinic today todiscuss the possibility of a genetic predisposition to cancer, and tofurther clarify her risks, as well as her family members' risks forcancer.HISTORY OF PRESENT ILLNESS:Anne Cary is a 52 year old female with no personal history of cancer.PAST MEDICAL HISTORYDiagnosis Date- HTN (hypertension)- Other psoriasis and similar disorders PsoriasisPAST SURGICAL HISTORYProcedure Laterality Date- APPENDECTOMY HX 2013- BIOPSY BREAST 2006 Right Breast- CT MAXILLOFACIAL WO/ CONT 1992- DANDC, DIAG AND/OR THERAPEUTIC 10/1987 Dilation AND curettage- LAPAROSCOPIC UTERINE NERVE ABLATION 2007- PAST SURGICAL HISTORY OF 1991 Maxillary jaw surgery TMJCANCER SURVEILLANCE HISTORY:Mammograms: per patient has been non-compliant. Most recent in 2018 wasnegative. Plan for annually.Breast MRI's: has not had one previously, but plans for annually.Breast Biopsies: NoColonoscopy: NoEGD: NoGI Polyps: N/APelvic Exam: not in last 5 yearsPap Smear: not in last 5 yearsDermatology: Yes / benignREPRODUCTIVE HISTORY AND PERSONAL RISK ASSESSMENT FACTORS:Weight: Last 1 Encounter Wt Readings: Date: Wt: 02/01/2016 65.3 kg (144 lb)Height: Last 1 Encounter Ht Readings: Date: Ht: 02/25/2012 163.8 cm (5' 4.5 )Menarche was at age 14PostmenopausalUterus Intact: YesOvaries Intact: [id number] , first live at age 23Breast fed: YesBrielle has not previously undergone treatment for infertility.She has not used oral contraception pills.She has not used HRT in the past.SOCIAL HISTORY:Social HistorySubstance Use Topics- Smoking status: Never Smoker- Smokeless tobacco: Not on file- Alcohol use Yes Comment: occassionallyFAMILY HISTORY:We obtained a detailed, 4-generation family history. Significantdiagnoses are listed below:Sister: 41, breast cancer at 40Brother: 7, leukemia at 6Mother: 71, breast cancer at 702 maternal aunts with breast cancer in their 60'sMaternal grandmother: , breast cancer in her 40's +/- ovariancancer as wellPer patient, she has limited contact with her family but is unaware ofanyone having had genetic testing in the pastA copy of the patient's pedigree will be available under the scanneddocuments tab following today's visit.GENETIC COUNSELING RISK ASSESSMENT, DISCUSSION, AND SUGGESTED FOLLOW UP:We reviewed the natural history and genetic etiology of sporadic, familialand hereditary cancer syndromes.The patient's family history is potentially suggestive of a hereditarycancer syndrome.We discussed that the best person to begin with genetic testing is afamily member with a history of cancer. Ms. Cary's sister who wasdiagnosed with breast cancer would be the most appropriate relative forgenetic testing. However, this relative is unavailable for testing.Therefore we discussed the limitations of interpreting tests results verona unaffected individual. The patient meets NCCN HBOC testing criteriasince her sister had a personal history of breast cancer diagnosed <= 45years of age, personal history of triple negative breast cancer diagnosed<= age 60 and personal history of breast cancer and 2 additional breastcancer diagnoses in patient or close relatives.We discussed that identification of a hereditary cancer syndrome may helpher care providers tailor her medical management. If a mutation isdetected, the patient will be referred back to the referring provider andto any additional appropriate care providers to discuss the relevantoptions.Inheritan ce of hereditary cancer syndromes was discussed with the patient.If a mutation is not found in the patient, this will decrease thelikelihood of a hereditary cancer syndrome for the patient, however itcannot rule it out as the explanation for the family history of cancer.Cancer surveillance options would be discussed for the patient accordingto the appropriate standard National Comprehensive Cancer Network andAmerican Cancer Society guidelines, with consideration of their personaland family history risk factors. In this case, the patient will bereferred back to their care providers for discussions of management.Additionally, in this event it is recommended that her sister with breastcancer pursue genetic testing as this could impact medical management forMs. Liseel as well as other family members.Based on this assessment of the patient's family and personal history,genetic testing is recommended.The patient was offered Common Hereditary Cancers Panel through [facility].After considering the risks, benefits, and limitations, the patient choseto pursue and provided informed consent for the following testing: CommonHereditary Cancers Panel through [facility].The Common Hereditary Cancer Panel includes APC, COSMO, AXIN2, BARD1,BMPR1A, BRCA1, BRCA2, BRIP1, CDH1, CDKN2A, CHEK2, CTNNA1, DICER1, EPCAM,GREM1, HOXB13, KIT, MEN1, MLH1, MSH2, MSH3, MSH6, MUTYH, NBN, NF1, NTHL1,PALB2, PDGFRA, PMS2, POLD1, POLE, PTEN, RAD50, RAD51C, RAD51D, SDHA, SDHB,SDHC, SDHD, SMAD4, SMARCA4, STK11, TP53, TSC1, TSC2, VHL.Per the patient's request, I will contact her by telephone to discussthese results. A follow up genetic counseling visit will be scheduled ifrequested.The patient was seen for a total of 30 minutes, greater than 50% of whichwas spent [id number] counseling. This plan is being carried out per Dr.Charis Mora's recommendations. This note will also be sent to thereferring provider via the electronic medical record.Jhon Phillips MS, [facility], Licensed Genetic CounselorEPIC CC:Iraida Alford. Tika Dangelo BY US MAIL:Yeimy Candelario [facility] Vital Signs Date Time Vital Sign Value Performing Clinician Matt byrd 09-06-2021 11:08-0500 Body temperature 97.16 [degF] SULMA POND MD [facility] 09-06-2021 11:08-0500 Diastolic blood pressure 82 mm[Hg] SULMA POND MD [facility] 09-06-2021 11:08-0500 Heart rate 80 /min SULMA POND MD [facility] 09-06-2021 11:08-0500 Heart rate 79 /min SULMA POND MD [facility] 09-06-2021 11:08-0500 Mean blood pressure 99 mm[Hg] SULMA POND MD [facility] 09-06-2021 11:08-0500 Reason For Taking VItal Signs SULMA POND MD [facility] 09-06-2021 11:08-0500 Respiratory rate 16 /min SULMA POND MD [facility] 09-06-2021 11:08-0500 Systolic blood pressure 134 mm[Hg] SULMA POND MD [facility] 09-06-2021 10:57-0500 Body temperature 98.24 [degF] SULMA POND MD [facility] 09-06-2021 10:57-0500 Diastolic Blood Pressure NBP 83 1 SULMA POND MD [facility] 09-06-2021 10:57-0500 Heart rate 83 /min SULMA POND MD [facility] 09-06-2021 10:57-0500 Mean blood pressure 93 mm[Hg] SULMA POND MD [facility] 09-06-2021 10:57-0500 Respiratory rate 18 /min SULMA POND MD [facility] 09-06-2021 10:57-0500 Systolic Blood Pressure NBP 132 1 SULMA POND MD [facility] 09-06-2021 10:41-0500 Diastolic Blood Pressure NBP 70 1 SULMA POND MD [facility] 09-06-2021 10:41-0500 Heart rate 79 /min SULMA POND MD [facility] 09-06-2021 10:41-0500 Mean blood pressure 76 mm[Hg] SULMA POND MD [facility] 09-06-2021 10:41-0500 Respiratory rate 18 /min SULMA POND MD [facility] 09-06-2021 10:41-0500 Systolic Blood Pressure NBP 117 1 SULMA POND MD [facility] 09-06-2021 10:26-0500 Body temperature 96.8 [degF] SULMA POND MD [facility] 09-06-2021 10:26-0500 Diastolic Blood Pressure NBP 82 1 SULMA POND MD [facility] 09-06-2021 10:26-0500 Mean blood pressure 94 mm[Hg] SULMA POND MD [facility] 09-06-2021 10:26-0500 Systolic Blood Pressure NBP 134 1 SULMA POND MD [facility] 09-06-2021 09:45-0500 Body temperature 96.8 [degF] SULMA POND MD [facility] 09-06-2021 09:30-0500 Body temperature 96.8 [degF] SULMA POND MD [facility] 09-06-2021 09:15-0500 Body temperature 96.8 [degF] SULMA POND MD [facility] 09-06-2021 07:38-0500 Body height 163.8 cm SULMA POND MD [facility] 09-06-2021 07:38-0500 Body weight 69.5 kg SULMA POND MD [facility] 09-06-2021 07:38-0500 Diastolic blood pressure 81 mm[Hg] SULMA POND MD [facility] 09-06-2021 07:38-0500 Heart rate 74 /min SULMA POND MD [facility] 09-06-2021 07:38-0500 Mean blood pressure 96 mm[Hg] SULMA POND MD [facility] 09-06-2021 07:38-0500 Systolic blood pressure 126 mm[Hg] SULMA POND MD [facility] 09-03-2021 07:58-0500 Body height 165 cm SULMA POND MD [facility] 09-03-2021 07:58-0500 Body temperature 97.88 [degF] SULMA POND MD [facility] 09-03-2021 07:58-0500 Body weight 69.6 kg SULMA POND MD [facility] 09-03-2021 07:58-0500 diastolic 86 mm[Hg] SULMA POND MD [facility] 09-03-2021 07:58-0500 Heart rate 71 /min SULMA POND MD [facility] 09-03-2021 07:58-0500 systolic 144 mm[Hg] SULMA POND MD [facility] Encounters Encounter Date Encounter Type Care Provider Facility Start: 05-25-2024 End: 05-25-2024 ambulatory ABDELRAHMAN ESCAMILLA APRN-PRESS WORKER HELPER Facility:B Start: 05-25-2024 End: 05-25-2024 Patient encounter procedure ABDELRAHMAN ESCAMILLA APRN-PRESS WORKER HELPER [facility] Start: 05-11-2024 End: 05-11-2024 ambulatory ABDELRAHMAN ESCAMILLA APRN-PRESS WORKER HELPER Facility:B Start: 03-29-2024 End: 03-29-2024 ambulatory TEOFILO CORTES MD Facility:B Start: 03-29-2024 End: 03-29-2024 Patient encounter procedure TEOFILO CORTES MD [facility] Start: 03-08-2024 ambulatory GRISELDA Ingram EXPRESSIVE MUSIC THERAPIST-PRESS WORKER HELPER Facility:A Start: 03-08-2024 End: 03-08-2024 ambulatory GRISELDA CHAN EXPRESSIVE MUSIC THERAPIST-PRESS WORKER HELPER Facility:A Start: 03-08-2024 End: 03-08-2024 Patient encounter procedure GRISELDA CHAN EXPRESSIVE MUSIC THERAPIST-PRESS WORKER HELPER [facility] Start: 10-05-2023 End: 10-05-[address] NANDO BALLESTEROS MD Facility:B Start: 10-05-2023 End: 10-05-[address] NANDO BALLESTEROS MD [facility] Start: 09-21-2023 End: 09-25-2023 ambulatory ABDELRAHMAN ESCAMILLA EXPRESSIVE MUSIC THERAPIST-PRESS WORKER HELPER Facility:B Start: 09-21-2023 End: 09-25-2023 Outreach Lab ABDELRAHMAN ESCAMILLA EXPRESSIVE MUSIC THERAPIST-PRESS WORKER HELPER [facility] Start: 09-14-2023 End: 09-14-2023 ambulatory TEOFILO CORTES MD Facility:B Start: 09-14-2023 End: 09-14-2023 Patient encounter procedure TEOFILO CORTES MD [facility] Start: 09-03-2023 End: 09-03-2023 ambulatory GRISELDA CHAN EXPRESSIVE MUSIC THERAPIST-PRESS WORKER HELPER Facility:A Start: 08-03-2023 End: 08-03-2023 ambulatory TEOFILO CORTES MD Facility:B Start: 07-03-2023 End: 07-03-2023 ambulatory TEOFILO CORTES MD Facility:A Start: 06-22-2023 End: 06-22-2023 ambulatory TEOFILO CORTES MD Facility:B Start: 06-22-2023 End: 06-22-2023 Patient encounter procedure TEOFILO CORTES MD [facility] Start: 06-12-2023 End: 06-12-2023 ambulatory TEOFILO CORTES MD Facility:A Start: 06-01-2023 End: 06-01-2023 ambulatory ABDELRAHMAN ESCAMILLA EXPRESSIVE MUSIC THERAPIST-PRESS WORKER HELPER Facility:B Start: 06-01-2023 End: 06-01-2023 Patient encounter procedure ABDELRAHMAN ESCAMILLA EXPRESSIVE MUSIC THERAPIST-PRESS WORKER HELPER [facility] Start: 05-13-2023 End: 05-13-2023 Patient encounter procedure UMER BOYER DO [facility] Start: 05-05-2023 End: 05-05-2023 Patient encounter procedure UMER BOYER DO [facility] Start: 02-16-2023 End: 02-16-2023 Patient encounter procedure GRISELDA CHAN EXPRESSIVE MUSIC THERAPIST-PRESS WORKER HELPER [facility] Start: 09-08-2022 End: 09-08-2022 Patient encounter procedure TEOFILO CROTES MD [facility] Start: 08-23-2022 End: 08-23-2022 Patient encounter procedure ARMAAN FIELD MD [facility] Start: 08-18-2022 End: 08-18-2022 Patient encounter procedure GRISELDA CHAN EXPRESSIVE MUSIC THERAPIST-PRESS WORKER HELPER [facility] Start: 03-12-2022 End: 03-12-2022 Patient encounter procedure TEOFILO CORTES MD [facility] Start: 11-25-2021 End: 11-25-2021 Patient encounter procedure ARMAAN FIELD MD [facility] Start: 09-06-2021 End: 09-06-2021 SAME DAY STAY SULMA POND MD [facility] Start: 09-03-2021 End: 09-03-[address] [facility] SULMA POND MD [facility] Start: 08-20-2021 End: 08-20-[address] YEIMY CANDELARIO MD [facility] Start: 07-27-2018 End: 07-29-2018 Patient encounter YEIMY CANDELARIO [facility] Procedures Date Procedure Procedure Detail Performing Clinician Start: 08-26-2023 Echocardiography TEOFILO CORTES MD Start: 04-12-2021 Grafting of fat SULMA POND MD Comment on above: RIGHT BREAST FAT GRA FTING AND SCAR REVISION Start: 11-26-[address] [facility] PURNIMA POND MD Comment on above: SENTINAL LYMPH NODE BIOPSY RIGHT AXILLA AND EXCISIONAL OF 3 LYMPH NODES Start: 10-26-2019 Lumpectomy of right breast SULMA SALTY MD Start: 10-26-2018 MRI guided biopsy of right breast SULMA POND MD Start: 10-26-2018 Ultrasonography guid ed biopsy of bilateral breasts SULMA POND MD Comment on above: RIGHT BREAST Start: 10-26-2009 Appendectomy SULMA ALVAREZ MD Start: 10-26-[address] YEIMY CANDELARIO MD Start: 10-26-[address] MADELINE CANDELARIO MD Comment on above: RIGHT BREAST 2005 Start: 10-26-2001 Tubal occlusion SULMA POND MD Start: 10-26-1992 Osteotomy of body of mandible DR YEIMY CANDELARIO MD Start: 10-26-[address] YEIMY CANDELARIO MD Start: Echocardiography JOELLE ESCAMILLA EXPRESSIVE MUSIC THERAPIST-PRESS WORKER HELPER Comment on above: EF 60-65% Appendectomy DR YEIMY HALL MD Extraction of wisdom tooth Nicholas POND MD History of radiation therapy History of radiation therapy GRISELDA CHAN EXPRESSIVE MUSIC THERAPIST-PRESS WORKER HELPER Radioisotope scan of bone RAFAEL CORTES MD Tubal occlusion DR YEIMY BELLO MD Immunizations Immunization Date Immunization Notes Care Provider Fa [facility] 10-02-2021 influenza, injectabl e, quadrivalent, contains preservative; Translations: [Fluarix PF Quadrivalent ] ARMAAN FIELD MD [facility] 07-25-2021 COVID-19, mRNA, LNP- S, PF, 100 mcg/ 0.5 mL dose; Translations: [Moderna COVID-19 Vaccine] DR YEIMY CANDELARIO MD [facility] 06-26-2021 COVID-19, mRNA, LNP- S, PF, 100 mcg/ 0.5 mL dose; Translations: [Moderna COVID-19 Vaccine] DR YEIMY CANDELARIO MD [facility] Payers Date Payer Category Payer Private Health Insurance [id number] 2023 Private Health Insurance [id number] 1965 Unknown [id number] 2.16.8 [id number] 1965 Unknown [id number] 2.16.8 [id number] 1966 Unknown [id number] 2.16.8 [id number] 1966 Unknown [id number] 2.16.8 [id number] 1966 Unknown [id number] 2.16.8 [id number] 1966 Unknown [id number] 2.16.8 [id number] 1966 Unknown [id number] 2.16.8 [id number] 1966 Unknown [id number] 2.16.8 [id number] 1966 Unknown [id number] 2.16.8 [id number] 1966 Unknown [id number] 2.16.8 [id number] 1966 Unknown [id number] 2.16.8 [id number] 1965 Unknown [id number] 2.16.8 [id number] 1966 Unknown [id number] 2.16.8 [id number] 1965 Unknown [id number] 2.16.8 [id number] Social History Date Type Detail Facility Start: 06-15-2019 End: 04-30-2023 Never smoked tobacco (finding) [facility] Sex Assigned At Female [facility] Clinical Notes 09-06-2021 to 05-25-2024 LaboratoryRadiologyLaboratoryRadiologyLaboratoryLaboratoryRadiologyLaboratoryRad iologyLaboratoryRadiologyLaboratoryRadiologyLaboratoryRadiologyLaboratoryRadiolo gyLaboratoryRadiologyLaboratoryRadiology Note Date & Type Note Facility 05-25-2024 Note ORIGINAL EXAMINATION: LIMITED RETROPERITONEAL ULTRASOUND05/25/2024 1:48 pm Ultrasound retroperitoneum Complete: Attention Urinary tract COMPARISON: None TECHNIQUE: This report is based on interpretation of permanently recorded ultrasound images. HISTORY: ORDERING SYSTEM PROVIDED HISTORY: Reason for Exam: CKDIII, reduced GFR and elevated creatinine, FINDINGS: Right kidney: 10.3 x 3.8 x 4.0 cm Left kidney: 10.9 x 4.7 x 4.6 cm The kidneys are normal in cortical thickness and echogenicity. No complex cystic or solid mass is seen. No shadowing echogenic focus is visualized. There is no pelvocaliectasis on either side. There is no free fluid seen in the abdomen. Incidental coarsening and increased echogenicity of liver. Urinary bladder is suboptimally distended with volume of only 39 cc. It is sonographically normal. There is only 6 cc of postvoid residual.. IMPRESSION: No obstruction or acute abnormality in the kidneys. Incidental evidence of diffuse hepatocellular disease likely fatty infiltration. Correlate with LFTs and follow-up as warranted.. Interpreted by: Simone Michaels MD Preliminary Report By: Simone Michaels MD Electronically signed By Simone Michaels MD Dictated Date: 05/25/2024 1:57:23 PM Prelim Date: 05/25/2024 1:58:38 PM Sign Date: 05/25/2024 1:58:38 PM Ordering Provider: ABDELRAHMAN ESCAMILLA [facility] 06-22-2023 Note ORIGINAL EXAMINATION: WHOLE BODY BONE SCAN06/22/2023 2:20 pm TECHNIQUE: The patient received an intravenous injection of 28.2 mCi of Tc-99m MDP. Anterior and posterior images of the skeleton from skull vertex to feet were then acquired. Additional regional skeletal images were also obtained. COMPARISON: CT head 05/13/2023, MRI brain 06/01/2023 HISTORY: ORDERING SYSTEM PROVIDED HISTORY: Reason for Exam: breast cancer, abnormal MRI brain, chronic bilateral hip and ankle pain, low back pain x2 months FINDINGS: There are no suspicious foci of radiotracer uptake to suggest osseous metastatic disease. No focal uptake is visualized in the region of the left parietal calvarium. There are areas of arthritic uptake including the shoulders and hips bilaterally Activity in the bilateral kidneys and the urinary bladder represent normal route of radiopharmaceutical excretion. The soft tissue distribution of radiotracer activity is within normal limits. IMPRESSION: No evidence of active osseous metastatic disease. Specifically, no focal uptake is visualized in the region of the indeterminate enhancing focus in the left parietal calvarium seen on prior MR. I have personally reviewed the images of this examination and agree with the resident's findings and interpretation. Interpreted by: Miguel Grimes DO Preliminary Report By: Reynold Interiano Electronically signed By Miguel Grimes DO Dictated Date: 06/22/2023 3:42:42 PM Prelim Date: 06/22/2023 4:39:49 PM Sign Date: 06/22/2023 4:39:49 PM Ordering Provider: TEOFILO CORTES [facility] 09-08-2022 Note ORIGINAL FROM: [facility] [address], [place] [address] PROCEDURE FOR: ANNE CARY [address] [place] [id number] Home: PID#: [id number] Exam#: [id number] : 1965 Age: 56 TO: TEOFILO CORTES MD [address] [place], [place] [address] Fax: NO FAX EXAMINATION: DIAGNOSTIC BILATERAL MAMMOGRAM WITH TOMOSYNTHESIS, 09/08/2022 12:56 pm TECHNIQUE: Tomosynthesis was performed as part of the diagnostic bilateral mammogram. 2D standard and 3D tomosynthesis combination imaging performed. Current study was also evaluated with a Computer Aided Detection (CAD) system. COMPARISON: Mammogram 08/20/2021, 08/17/2020, 11/02/2019 HISTORY: ORDERING SYSTEM PROVIDED HISTORY: Reason for Exam: h/o breast cancer Patient has history of right breast cancer status post lumpectomy in 2019. FINDINGS: BREAST DENSITY: Scattered fibroglandular tissue There are postsurgical and postradiation changes of the right breast. There are benign calcifications in both breasts. No suspicious masses, calcifications, or distortions are identified in either breast. IMPRESSION: No mammographic evidence of malignancy. Continued screening with annual mammograms is recommended. BIRADS: MAMMOGRAM BI-RADS: 2: Benign finding RECALL: 1 year screening RECALL TYPE: mammo LETTER SENT: Normal BI-RADS 1 and 2 Interpreted by: Mindi Jacome Preliminary Report By: Mindi Jacome Electronically signed By Mindi Jacome Dictated Date: 09/08/2022 4:47:18 PM Prelim Date: 09/08/2022 4:52:29 PM Sign Date: 09/08/2022 4:52:29 PM Ordering Provider: TEOFILO CORTES CLINICAL: POST LUMPECTOMY/ RADIATION RIGHT BREAST. copy to: AL WANG MD, ph: [phone], fax: [phone] Lumber Checker: THELMA GARDINER RT (R) (M) (CT) letter sent: Normal BI-RADS 1 and 2 Mammogram BI-RADS: 2 Benign [facility] 09-08-2022 Note ORIGINAL FROM: [facility] [address], [place] [address] PROCEDURE FOR: ANNE CARY [address] [place] [address] Home: PID#: [id number] Exam#: [id number] : 1965 Age: 56 TO: TEOFILO CORTES MD [address], [place] [address] Fax: NO FAX EXAMINATION: DIAGNOSTIC BILATERAL MAMMOGRAM WITH TOMOSYNTHESIS, 09/08/2022 12:56 pm TECHNIQUE: Tomosynthesis was performed as part of the diagnostic bilateral mammogram. 2D standard and 3D tomosynthesis combination imaging performed. Current study was also evaluated with a Computer Aided Detection (CAD) system. COMPARISON: Mammogram 08/20/2021, 08/17/2020, 11/02/2019 HISTORY: ORDERING SYSTEM PROVIDED HISTORY: Reason for Exam: h/o breast cancer Patient has history of right breast cancer status post lumpectomy in 2019. FINDINGS: BREAST DENSITY: Scattered fibroglandular tissue There are postsurgical and postradiation changes of the right breast. There are benign calcifications in both breasts. No suspicious masses, calcifications, or distortions are identified in either breast. IMPRESSION: No mammographic evidence of malignancy. Continued screening with annual mammograms is recommended. BIRADS: MAMMOGRAM BI-RADS: 2: Benign finding RECALL: 1 year screening RECALL TYPE: mammo LETTER SENT: Normal BI-RADS 1 and 2 Interpreted by: Mindi Jacome Preliminary Report By: Mindi Jacome Electronically signed By Mindi Jacome Dictated Date: 09/08/2022 4:47:18 PM Prelim Date: 09/08/2022 4:52:29 PM Sign Date: 09/08/2022 4:52:29 PM Ordering Provider: TEOFILO CORTES CLINICAL: POST LUMPECTOMY/ RADIATION RIGHT BREAST. copy to: AL WANG MD, ph: [phone], fax: [phone] Lumber Checker: THELMA GARDINER RT (R) (M) (CT) letter sent: Normal BI-RADS 1 and 2 Mammogram BI-RADS: 2 Benign [facility] 09-06-2021 Hospital Discharge instructions Patient Education 09/06/2021 11:21:44 Breast Augmentation, Care After Breast Augmentation, Care After This sheet gives you information about how to care for yourself after your procedure. Your health care provider may also give you more specific instructions. If you have problems or questions, contact your health care provider. What can I expect after the procedure? After the procedure, it is common to have: Bruising, soreness, and swelling in your breasts. This may last for a few days. Breast pain. You will be given medicine to help relieve pain. Follow these instructions at home: Medicines Take nwnd-aab-xnkhgtk and prescription medicines only as told by your health care provider. Do not take aspirin or NSAIDs because these medicines increase the chances of bleeding. If you were prescribed an antibiotic medicine, take it as told by your health care provider. Do not stop taking the antibiotic even if you start to feel better. Incision care Follow instructions from your health care provider about how to take care of your incisions. Make sure you: ?Wash your hands with soap and water before you change your bandage (dressing). If soap and water are not available, use hand loom cleaner. ?Change your dressing as told by your health care provider. ?Leave stitches (sutures), skin glue, or adhesive strips in place. These skin closures may need to stay in place for 2 weeks or longer. If adhesive strip edges start to loosen and curl up, you may trim the loose edges. Do not remove adhesive strips completely unless your health care provider tells you to do that. Check your incision areas every day for signs of infection. Check for: ?More redness, swelling, or pain. ?More fluid or blood. ?Warmth. ?Pus or a bad smell. Activity For the first 3 days after surgery, rest as much as possible. Get up and walk around at least 3 4 times a day. This helps to prevent blood clots and pneumonia. For the first 5 7 days after surgery, move your arms as little as possible and avoid turning or twisting your upper body. Do not drive for 24 hours if you were given a medicine to help you relax (sedative). Do not drive or use heavy machinery while taking prescription pain medicine. Do not do physical activity that requires a lot of movement or energy for 1 month after surgery, or as long as told by your health care provider. Ask your health care provider what activities are safe for you. Do not lift anything that is heavier than 5 lb (2.3 kg) for 3 weeks, or as long as told by your health care provider. Bathing Do not take baths, swim, or use a hot tub until your health care provider approves. Ask your health care provider if you may take showers. You may only be allowed to take sponge baths for bathing. Lifestyle Do not use any products that contain nicotine or tobacco, such as cigarettes and e-cigarettes. If you need help quitting, ask your health care provider. Avoid being in the sun for long periods of time. General instructions Wear a postoperative bra, compression bandage, or jogging bra, as directed. Wear compression stockings as told by your health care provider. These stockings help to prevent blood clots and reduce swelling in your legs. If you have tubes draining fluid from your surgical area, care for them as told by your health care provider. Follow instructions from your health care provider about eating or drinking restrictions. Do not sleep on your belly for 4 6 weeks. To prevent or treat constipation while you are taking prescription pain medicine, your health care provider may recommend that you: ?Drink enough fluid to keep your urine clear or pale yellow. ?Take ubnw-aex-hbvgawb or prescription medicines. ?Eat foods that are high in fiber, such as fresh fruits and vegetables, whole grains, and beans. ?Limit foods that are high in fat and processed sugars, such as fried and sweet foods. Keep all follow-up visits as told by your health care provider. This is important. Contact a health care provider if: You have more redness, swelling, or pain around your incision area or in your breast. You have more fluid or blood coming from your incision area. Your incision or your breast feels warm to the touch. You have pus or a bad smell coming from your incision area. You have nausea or vomiting that lasts for more than 2 days. You have pain that does not get better with medicine. You develop a cough. You have difficulty moving your arm or have pain when moving your arm. You have areas of blood or fluid collecting in your breast. You have bruising or swelling that does not get better after a few days. Get help right away if: You have chest pain that is new or feels different from your pain after surgery. Your heartbeat is abnormal. You have trouble breathing or have shortness of breath. You develop swelling in your legs or arms. You develop a fever. Summary You may have pain, bruising, soreness, and swelling in your breasts. This may last for a few days. Follow instructions from your health care provider about how to take care of your incisions. Check your incision areas every day for signs of infection. Follow instructions from your health care provider on what activities you can do and any restrictions you may have after the procedure. Contact your health care provider if you notice any signs or symptoms of infection. This information is not intended to replace advice given to you by your health care provider. Make sure you discuss any questions you have with your health care provider. Instructions as per Dr. Pond: No heavy lifting or strenuous activity Wear the bra and the binder on at all times. You may shower in 24 hours after your procedure remove bra and compression garment remove the gauze. Leave the sticky Steri-Strips intact shower pat dry and replace bra and compression garment. Given written for pain medication take as instructed. Call to schedule appointment in 7 to 10 days for follow-up. You may call the office number for any questions or concerns day or night. Document Released: 08/02/2014 Document Revised: 09/24/2018 Document Reviewed: 06/19/2017 [facility] Patient Education 2020 [employer]. Follow Up Care 07/30/2021 14:33:00 With:SULMA POND MD, [facility] Address: [phone] When: Unknown Comments:Follow-up as needed [facility] Evaluation + Plan note Future Appointments Appointment Date:08/22/2021 09:30:00 AM Scheduled Provider:SULMA POND MD Location:[facility]AST[facility] Appointment Type:PS OV Pre Op Appointment Date:11/26/2021 11:30:00 AM Scheduled Provider:ARMAAN FIELD MD Location:HEM ONC Appointment Type:HEM ONC OV Follow Up Appointment Date:12/31/2021 03:40:00 PM Scheduled Provider:YEIMY CANDELARIO MD Location:[facility] Appointment Type:BS OV Follow Up w/ Imaging [facility] Evaluation + Plan note Future Appointments Appointment Date:11/26/2021 11:30:00 AM Scheduled Provider:ARMAAN FIELD MD Location:HEM ONC Appointment Type:HEM ONC OV Follow Up Appointment Date:12/31/2021 03:40:00 PM Scheduled Provider:YEIMY CANDELARIO MD Location:[facility] Appointment Type:BS OV Follow Up w/ [facility] Evaluation + Plan note Future Appointments Appointment Date:11/26/2021 11:30:00 AM Scheduled Provider:ARMAAN FIELD MD Location:HEM ONC Appointment Type:HEM ONC OV Follow Up Appointment Date:12/05/2021 09:30:00 AM Scheduled Provider:SULMA POND MD Location:[facility] Appointment Type:PS OV Post Op Recheck Appointment Date:12/31/2021 03:40:00 PM Scheduled Provider:YEIMY CANDELARIO MD Location:[facility] Appointment Type:BS OV Follow Up w/ [facility] Evaluation + Plan note Future Appointments Appointment Date:03/21/2022 10:30:00 AM Scheduled Provider: Location:[facility] Appointment Type:BD Bone Density DEXA Axial Skeleton Appointment Date:05/30/2022 01:30:00 PM Scheduled Provider:ARMAAN FIELD MD Location:[facility] Appointment Type:[facility] OV Follow Up Appointment Date:09/01/2022 01:00:00 PM Scheduled Provider:TEOFILO CORTES MD Location:[facility] Appointment Type:HEM ONC OV Follow Up Future Scheduled TestsPathology Tissue Request 01/31/22Ferritin 03/03/22Lactate Dehydrogenase 03/03/22Complete Blood Count 05/26/22Complete Blood Count 03/03/22Iron Studies 03/03/22Complete Metabolic Panel 05/26/22Complete Metabolic Panel 03/03/22MA Mammo Diagnostic Bilateral w/Dean 03/03/22BD Bone Density DEXA Axial Skeleton 03/21/22 [facility] Evaluation + Plan note Future Appointments Appointment Date:09/01/2022 01:00:00 PM Scheduled Provider:TEOFILO CORTES MD Location:[facility] Appointment Type:HEM ONC OV Follow Up Appointment Date:09/08/2022 01:00:00 PM Scheduled Provider: Location:[facility] Appointment Type:MA Mammogram Diagnostic Bilateral w/ Juan Appointment Date:09/11/2022 04:30:00 PM Scheduled Provider:UMER BOYER DO Location:[facility] Appointment Type:PC Wellness [facility] Healthy Appointment Date:02/16/2023 01:00:00 PM Scheduled Provider:GRISELDA CHAN Location:[facility] Appointment Type:BS OV Follow Up Future Scheduled TestsPathology Tissue Request 01/31/22Ferritin 03/03/22Lactate Dehydrogenase 03/03/22Complete Blood Count 05/26/22Complete Blood Count 03/03/22Iron Studies 03/03/22Complete Metabolic Panel 05/26/22Complete Metabolic Panel 03/03/22MA Mammo Diagnostic Bilateral w/Dean 09/08/22 [facility] Evaluation + Plan note Future Appointments Appointment Date:09/11/2022 04:30:00 PM Scheduled Provider:UMER BOYER DO Location:[facility] Appointment Type:PC Wellness Bee Healthy Appointment Date:02/16/2023 01:00:00 PM Scheduled Provider:GRISELDA CHAN Location:[facility] Appointment Type:BS OV Follow Up Appointment Date:03/02/2023 01:45:00 PM Scheduled Provider:TEOFILO CORTES MD Location:[facility] Appointment Type:[facility]M ONC OV Follow Up Future Scheduled TestsPathology Tissue Request 01/31/22Ferritin 03/03/22Lactate Dehydrogenase 03/03/22Complete Blood Count 05/26/22Complete Blood Count 03/01/23Complete Blood Count 03/03/22Iron Studies 03/03/22Complete Metabolic Panel 05/26/22Complete Metabolic Panel 03/01/23Complete Metabolic Panel 03/03/22 [facility] Evaluation + Plan note Future Appointments Appointment Date:03/02/2023 01:45:00 PM Scheduled Provider:TEOFILO CORTES MD Location:[facility] Appointment Type:HEM ONC OV Follow Up Appointment Date:08/24/2023 01:00:00 PM Scheduled Provider:GRISELDA CHAN Location:[facility] Appointment Type:BS OV Follow Up Future Scheduled TestsFerritin 03/03/22Lactate Dehydrogenase 03/03/22Complete Blood Count 05/26/22Complete Blood Count 03/01/23Complete Blood Count 03/03/22Iron Studies 03/03/22Complete Metabolic Panel 05/26/22Complete Metabolic Panel 03/01/23Complete Metabolic Panel 03/03/22MA Mammo Diagnostic Bilateral w/Dean 08/18/23 [facility] Evaluation + Plan note Future Appointments Appointment Date:05/18/2023 12:30:00 PM Scheduled Provider:ABDELRAHMAN ESCAMILLA Location:[facility] Appointment Type:PC Wellness Annual Appointment Date:08/24/2023 01:00:00 PM Scheduled Provider:GRISELDA CHAN Location:[facility] Appointment Type:BS OV Follow Up Appointment Date:09/03/2023 01:15:00 PM Scheduled Provider:TEOFILO CORTES MD Location:[facility] Appointment Type:[facility]M [facility] OV Follow Up Future Scheduled TestsAntinuclear Antibody Screen, Serum 03/02/23Lactate Dehydrogenase 03/02/23Rheumatoid Factor 03/02/23CA 27 29 03/02/23Carbohydrate Antigen 15-3 03/02/23Carcinoembryonic Antigen 03/02/23Complete Blood Count 05/26/22Complete Blood Count 03/01/23Complete Blood Count 03/02/23Complete Metabolic Panel 05/26/22Complete Metabolic Panel 03/01/23Complete Metabolic Panel 03/02/23MA Mammo Diagnostic Bilateral w/Dean 08/18/23MA Mammo Screening Bilateral w/ Dean 08/02/23 [facility] Evaluation + Plan note Future Appointments Appointment Date:05/18/2023 12:30:00 PM Scheduled Provider:ABDELRAHMAN ESCAMILLAPRESS WORKER HELPER Location:[facility] Appointment Type:PC Wellness Annual Appointment Date:08/24/2023 01:00:00 PM Scheduled Provider:GRISELDA CHAN Location:[facility] Appointment Type:BS OV Follow Up Appointment Date:09/03/2023 01:15:00 PM Scheduled Provider:TEOFILO CORTES MD Location:[facility] Appointment Type:[facility]M ONC OV Follow Up Future Scheduled TestsAntinuclear Antibody Screen, Serum 03/02/Lactate Dehydrogenase 5//Rheumatoid Factor 5/CA 27 29 5//Carbohydrate Antigen 15-3 03/02/Carcinoembryonic Antigen 03/02/23Complete Blood Count 05/26/22Complete Blood Count 03/01/23Complete Blood Count 03/02/23Complete Metabolic Panel 05/26/22Complete Metabolic Panel 03/01/23Complete Metabolic Panel 05/13/23Complete Metabolic Panel 03/02/23MA Mammo Diagnostic Bilateral w/Dean 08/18/23MA Mammo Screening Bilateral w/ Dean 08/02/23 [facility] Evaluation + Plan note Future Appointments Appointment Date:08/24/2023 01:00:00 PM Scheduled Provider:GRISELDA CHAN Location:[facility] Appointment Type:BS OV Follow Up Appointment Date:09/03/2023 01:15:00 PM Scheduled Provider:TEOFILO CORTES MD Location:[facility] Appointment Type:HEM ONC OV Follow Up Future Scheduled TestsAntinuclear Antibody Screen, Serum 5/Lactate Dehydrogenase 5/Thyroid Stimulating Hormone 05/29/23Free T4 8//Rheumatoid Factor 03/02/CA 27 29 5//Carbohydrate Antigen 15-3 5//Carcinoembryonic Antigen 03/02/23Complete Blood Count 05/26/22Complete Blood Count 03/01/23Complete Blood Count 03/02/Complete Metabolic Panel 05/26/22Complete Metabolic Panel 03/01/23Complete Metabolic Panel 05/13/23Complete Metabolic Panel 03/02/23MA Mammo Diagnostic Bilateral w/Dean 08/18/23MA Mammo Screening Bilateral w/ Dean 08/02/23 [facility] Evaluation + Plan note Future Appointments Appointment Date:07/03/2023 02:30:00 PM Scheduled Provider:TEOFILO CORTES MD Location:[facility] Appointment Type:HEM ONC OV Follow Up Appointment Date:08/03/2023 01:00:00 PM Scheduled Provider: Location:[facility] Appointment Type:MA Mammogram Screening Bilateral w/ Dean Appointment Date:08/24/2023 01:00:00 PM Scheduled Provider:GRISELDA CHAN Location:[facility] Appointment Type:BS OV Follow Up Appointment Date:09/03/2023 01:15:00 PM Scheduled Provider:TEOFILO CORTES MD Location:[facility] Appointment Type:HEM ONC OV Follow Up Future Scheduled TestsAntinuclear Antibody Screen, Serum 03/02/23Lactate Dehydrogenase 03/02/23Thyroid Stimulating Hormone 05/29/23Free T4 05/29/23Rheumatoid Factor 03/02/23CA 27 29 06/12/23CA 27 29 03/02/23Carbohydrate Antigen 15-3 06/12/23Carbohydrate Antigen 15-3 03/02/23Carcinoembryonic Antigen 06/12/23Carcinoembryonic Antigen 03/02/23Complete Blood Count 05/26/22Complete Blood Count 03/01/23Complete Blood Count 06/12/23Complete Blood Count 03/02/23Complete Metabolic Panel 05/26/22Complete Metabolic Panel 03/01/23Complete Metabolic Panel 05/13/23Complete Metabolic Panel 06/12/23Complete Metabolic Panel 03/02/23MA Mammo Diagnostic Bilateral w/Dean 08/18/23MA Mammo Screening Bilateral w/ Dean 08/03/23 [facility] Evaluation + Plan note Future Appointments Appointment Date:09/21/2023 05:00:00 PM Scheduled Provider:ABDELRAHMAN ESCAMILLA Location:[facility] Appointment Type:PC OV Hospital Follow-Up Appointment Date:11/02/2023 01:30:00 PM Scheduled Provider:TEOFILO CORTES MD Location:[facility] Appointment Type:[facility]M ONC OV Follow Up Appointment Date:03/07/2024 10:30:00 AM Scheduled Provider:GRISELDA CHAN Location:[facility] Appointment Type:BS OV Follow Up Appointment Date:03/28/2024 01:00:00 PM Scheduled Provider: Location:[facility] Appointment Type:BD Bone Density DEXA Axial Skeleton Appointment Date:04/04/2024 02:00:00 PM Scheduled Provider:TEOFILO CORTES MD Location:[facility] Appointment Type:[facility]M ONC OV Follow Up Future Scheduled TestsAntinuclear Antibody Screen, Serum 03/02/23Lactate Dehydrogenase 03/02/23Rheumatoid Factor 03/02/23CA 27 29 06/12/23CA 27 29 03/02/23Carbohydrate Antigen 15-3 06/12/23Carbohydrate Antigen 15-3 03/02/23Carcinoembryonic Antigen 06/12/23Carcinoembryonic Antigen 03/02/23Complete Blood Count 03/01/23Complete Blood Count 11/02/23Complete Blood Count 06/12/23Complete Blood Count 03/02/23Complete Blood Count 03/03/24Complete Metabolic Panel 03/01/23Complete Metabolic Panel 11/02/23Complete Metabolic Panel 05/13/23Complete Metabolic Panel 06/12/23Complete Metabolic Panel 03/02/23Complete Metabolic Panel 03/03/24MA Mammo Diagnostic Bilateral w/Dean 08/18/23BD Bone Density DEXA Axial Skeleton 03/28/24 [facility] Evaluation + Plan note Future Appointments Appointment Date:10/05/2023 07:45:00 AM Scheduled Provider: Location:[facility] Appointment Type:HL Plain Stress Test Appointment Date:11/02/2023 01:30:00 PM Scheduled Provider:TEOFILO CORTES MD Location:[facility] Appointment Type:HEM ONC OV Follow Up Appointment Date:03/07/2024 10:30:00 AM Scheduled Provider:GRISELDA CHAN Location:[facility] Appointment Type:BS OV Follow Up Appointment Date:03/28/2024 01:00:00 PM Scheduled Provider: Location:[facility] Appointment Type:BD Bone Density DEXA Axial Skeleton Appointment Date:04/04/2024 02:00:00 PM Scheduled Provider:TEOFILO CORTES MD Location:[facility] Appointment Type:HEM ONC OV Follow Up Future Scheduled TestsAntinuclear Antibody Screen, Serum 03/02/23Lactate Dehydrogenase 03/02/23Rheumatoid Factor 03/02/CA 27 29 06/12/23CA 27 29 03/02/23Carbohydrate Antigen 15-3 06/12/23Carbohydrate Antigen 15-3 03/02/23Carcinoembryonic Antigen 06/12/23Carcinoembryonic Antigen 03/02/23Complete Blood Count 03/01/23Complete Blood Count 11/02/23Complete Blood Count 06/12/23Complete Blood Count 03/02/23Complete Blood Count 03/03/24Complete Metabolic Panel 03/01/23Complete Metabolic Panel 11/02/23Complete Metabolic Panel 05/13/23Complete Metabolic Panel 06/12/23Complete Metabolic Panel 03/02/Complete Metabolic Panel 03/03/24BD Bone Density DEXA Axial Skeleton 03/28/24 [facility] Evaluation + Plan note Future Appointments Appointment Date:11/02/2023 01:30:00 PM Scheduled Provider:TEOFILO CORTES MD Location:[facility] Appointment Type:HEM ONC OV Follow Up Appointment Date:03/07/2024 10:30:00 AM Scheduled Provider:GRISELDA CHAN [facility] Appointment Type:BS OV Follow Up Appointment Date:03/28/2024 01:00:00 PM Scheduled Provider: Location:[facility] Appointment Type:BD Bone Density DEXA Axial Skeleton Appointment Date:04/04/2024 02:00:00 PM Scheduled Provider:TEOFILO CORTES MD Location:[facility] Appointment Type:HEM ONC OV Follow Up Future Scheduled TestsAntinuclear Antibody Screen, Serum 03/02/23Lactate Dehydrogenase 03/02/23Rheumatoid Factor 03/02/23CA 27 29 06/12/23CA 27 29 03/02/23Carbohydrate Antigen 15-3 06/12/23Carbohydrate Antigen 15-3 03/02/23Carcinoembryonic Antigen 06/12/23Carcinoembryonic Antigen 03/02/23Complete Blood Count 03/01/23Complete Blood Count 11/02/23Complete Blood Count 06/12/23Complete Blood Count 03/02/23Complete Blood Count 03/03/24Complete Metabolic Panel 03/01/23Complete Metabolic Panel 11/02/23Complete Metabolic Panel 05/13/23Complete Metabolic Panel 06/12/23Complete Metabolic Panel 03/02/23Complete Metabolic Panel 03/03/24BD Bone Density DEXA Axial Skeleton 03/28/24 [facility] Evaluation + Plan note Future Appointments Appointment Date:03/28/2024 01:00:00 PM Scheduled Provider: Location:[facility] Appointment Type:BD Bone Density DEXA Axial Skeleton Appointment Date:04/04/2024 02:00:00 PM Scheduled Provider:TEOFILO CORTES MD Location:[facility] Appointment Type:HEM ONC OV Follow Up Appointment Date:09/13/2024 10:00:00 AM Scheduled Provider: Location:[facility] Appointment Type:MA Mammogram Screening Bilateral w/ Dean Appointment Date:09/13/2024 10:30:00 AM Scheduled Provider:GRISELDA CHAN APRN-FLORENTIN Location:[facility] Appointment Type:BS OV Follow Up w/ Imaging Future Scheduled TestsCA 27 29 06/12/23Carbohydrate Antigen 15-3 06/12/23Carcinoembryonic Antigen 06/12/23Complete Blood Count 03/01/23Complete Blood Count 11/02/23Complete Blood Count 06/12/23Complete Blood Count 03/03/24Complete Metabolic Panel 03/01/23Complete Metabolic Panel 11/02/23Complete Metabolic Panel 05/13/23Complete Metabolic Panel 06/12/23Complete Metabolic Panel 03/03/24MA Mammo Screening Bilateral w/ Dean 09/13/24BD Bone Density DEXA Axial Skeleton 03/28/24 [facility] Evaluation + Plan note Future Appointments Appointment Date:04/04/2024 02:00:00 PM Scheduled Provider:TEOFILO CORTES MD Location:[facility] Appointment Type:HEM ONC OV Follow Up Appointment Date:09/13/2024 10:00:00 AM Scheduled Provider: Location:[facility] Appointment Type:MA Mammogram Screening Bilateral w/ Dean Appointment Date:09/13/2024 10:30:00 AM Scheduled Provider:GRISELDA CHAN Location:[facility] Appointment Type:BS OV Follow Up w/ Imaging Future Scheduled TestsCA 27 29 8Carbohydrate Antigen 15-3 06/12/23Carcinoembryonic Antigen 06/12/23Complete Blood Count 11/02/23Complete Blood Count 06/12/23Complete Blood Count 03/03/24Complete Metabolic Panel 11/02/23Complete Metabolic Panel 05/13/23Complete Metabolic Panel 8//Complete Metabolic Panel 03/03/24MA Mammo Screening Bilateral w/ Dean 09/13/24 [facility] Evaluation + Plan note Future Appointments Appointment Date:06/01/2024 01:00:00 PM Scheduled Provider: Location:[facility] Appointment Type:PC Nurse Injection Appointment Date:08/03/2024 02:00:00 PM Scheduled Provider:ABDELRAHMAN ESCAMILLA Location:[facility] Appointment Type:PC Wellness Female Appointment Date:09/13/2024 10:00:00 AM Scheduled Provider: Location:[facility] Appointment Type:MA Mammogram Screening Bilateral w/ Dean Appointment Date:09/13/2024 10:30:00 AM Scheduled Provider:GRISELDA CHAN Location:[facility] Appointment Type:BS OV Follow Up w/ Imaging Future Scheduled TestsBasic Metabolic Panel 05/25/24CA 27 29 8/18/23Carbohydrate Antigen 15-3 06/12/23Carcinoembryonic Antigen 06/12/23Complete Blood Count 11/02/23Complete Blood Count 06/12/23Complete Blood Count 03/03/24Complete Metabolic Panel 11/02/23Complete Metabolic Panel 06/12/23Complete Metabolic Panel 03/03/24MA Mammo Screening Bilateral w/ Dean 09/13/24 [facility] Hospital course Narrative No data available for this section [facility] Hospital Discharge instructions No data available for this section [facility] Progress note No data available for this section [facility] Summary Purpose Family History No Family History Records Found No data available for this section No data available for this section No data available for this section No data available for this section No data available for this section No data available for this section No data available for this section No data available for this section No data available for this section No Family History Records Found Advance Directives No Advanced Directives Records FoundNo Advanced Directives Records Found Additional Source Comments INFORMATION SOURCE (unrecogn ized section and content) DATE CREATED AUTHOR 08/26/2018 [facility] DATE CREATED AUTHOR AUTHOR'S ORGANIZ ATION 05/29/2024 [facility] ([place]) Care Team (unrecognized sect ion and content) Personnel Name: UMER BOYER DO Address: [address] [place] [address]- Care Team Personnel Name: UMER BOYER DO Position: P4 Physician - Primary Care Member Role: Primary Care Physician Address: Address: [address] [place] [id number] [place] [address] Name: YEIMY CANDELARIO MD Position: P4 Physician - General Surgery Member Role: Breast Surgeon Address: Address: [address] [place] [address] Breast [place], [place] [address] Care Team Related Persons Name: ISIS CARY Address: [address] [place], [place] [phone] [place] Care Team Personnel Name: YEIMY CANDELARIO MD Position: P4 Physician - General Surgery Member Role: Breast Surgeon Address: Address: [address] [facility] [place] [address]- Name: ABDELRAHMAN ESCAMILLA APRN-PRESS WORKER HELPER Position: P4 Advanced Population Geneticist Member Role: Primary Care Physician Address: Address: [address] [place] [address]- Care Team Related Persons Name: ISIS CARY Address: [address] [place], [place] [phone] [place] Care Team Personnel Name: YEIMY CANDELARIO MD Position: P4 Physician - General Surgery Member Role: Breast Surgeon Address: Address: [address] [place] [address] [place] [address]- Name: ABDELRAHMAN ESCAMILLA EXPRESSIVE MUSIC THERAPIST-PRESS WORKER HELPER Position: P4 Advanced Population Geneticist Member Role: Primary Care Physician Address: Address: [address] [place] [address]- Care Team Related Persons Name: ISIS CARY Address: [address] [place], [place] [phone] [place] Care Team Personnel Name: YEIMY CANDELARIO MD Position: P4 Physician - General Surgery Member Role: Breast Surgeon Address: Address: [address] [place] [address] [place] [address]- Name: ABDELRAHMAN ESCAMILLA EXPRESSIVE MUSIC THERAPIST-PRESS WORKER HELPER Position: P4 Advanced Population Geneticist Member Role: Primary Care Physician Address: Address: [address] [place] [address]- Care Team Related Persons Name: ISIS CARY Address: [address] [place], [place] [phone] [place] Care Team Personnel Name: YEIMY CANDELARIO MD Position: P4 Physician - General Surgery Member Role: Breast Surgeon Address: Address: [address] [facility] [place] [address]- [place] Name: ABDELRAHMAN ESCAMILLA EXPRESSIVE MUSIC THERAPIST-PRESS WORKER HELPER Position: P4 Advanced Population Geneticist Member Role: Primary Care Physician Address: Address: [address] [place] [address]- [place] Care Team Related Persons Name: MARTHA CARYWILMA Address: [address] [place], [place] [phone] [place] Care Team Personnel Name: YEIMY CANDELARIO MD Position: P4 Physician - General Surgery Member Role: Breast Surgeon Address: Address: [address] [facility] [place] [address]- [place] Name: ABDELRAHMAN ESCAMILLA APRN-PRESS WORKER HELPER Position: P4 Advanced Population Geneticist Member Role: Primary Care Physician Address: Address: [address] [place] [address]- [place] Care Team Related Persons Name: LISEMARTHA BERRYWILMA Address: [address] [place], [place] [phone] [place] Care Team Personnel Name: YEIMY CANDELARIO MD Position: P4 Physician - General Surgery Member Role: Breast Surgeon Address: Address: [address] [place] [address] [place] [address]- [place] Name: ABDELRAHMAN ESCAMILLA APRN-PRESS WORKER HELPER Position: P4 Advanced Population Geneticist Member Role: Primary Care Physician Address: Address: [address] [place] [address] [place] Care Team Related Persons Name: MARTHA CARYWILMA Address: [address] [place], [place] [phone] [place] Care Team Personnel Name: EYIMY CANDELARIO MD Position: P4 Physician - General Surgery Member Role: Breast Surgeon Address: Address: [address] [facility] [place] [address]- [place] Name: ABDELRAHMAN ESCAMILLA APRN-PRESS WORKER HELPER Position: P4 Advanced Population Geneticist Member Role: Primary Care Physician Address: Address: [address] [place] [address]- [place] Care Team Related Persons Name: LISEMARTHA BERRYWILMA Address: [address] [place], [place] [phone] [place] Care Team Personnel Name: YEIMY CANDELARIO MD Position: P4 Physician - General Surgery Member Role: Breast Surgeon Address: Address: [address] [facility] [place] [address]- [place] Name: ANDI, ABDELRAHMAN A EXPRESSIVE MUSIC THERAPIST-PRESS WORKER HELPER Position: P4 Advanced Population Geneticist Member Role: Primary Care Physician Address: Address: [address] [place] [address]- Care Team Related Persons Name: ISIS CARY Address: [address] [place], [place] [phone] [place] Care Team Personnel Name: YEIMY CANDELARIO MD Position: P4 Physician - General Surgery Member Role: Breast Surgeon Address: Address: [address] [place] [address] [place] [address]- [place] Name: ABDELRAHMAN ESCAMILLA EXPRESSIVE MUSIC THERAPIST-PRESS WORKER HELPER Position: P4 Advanced Population Geneticist Member Role: Primary Care Physician Address: Address: [address] [place] [address]- Care Team Related Persons Name: ISIS CARY Address: Home [address] [place] [phone] [place] Care Team Personnel Name: YEIMY CANDELARIO MD Position: P4 Physician - General Surgery Member Role: Breast Surgeon Address: Address: [address] [place] [address] [place] [address]- [place] Name: ABDELRAHMAN ESCAMILLA EXPRESSIVE MUSIC THERAPIST-PRESS WORKER HELPER Position: P4 Advanced Population Geneticist Member Role: Primary Care Physician Address: Address: [address] [place] [address]- Care Team Related Persons Name: ISIS CARY Address: Home [address] [place] [phone] [place] Care Team (unrecognized sect ion and content) Care Team Personnel Name: UMER BOYER DO Position: P4 Physician - Primary Care Member Role: Primary Care Physician Address: Address: [address] [place] [address] [place] Name: YEIMY CANDELARIO MD Position: P4 Physician - General Surgery Member Role: Breast Surgeon Address: Address: [facility] [place] [address] [place] [address]- Care Team Related Persons Name: LISEMARTHA BERRYWILMA Address: Home [address] [place] [phone] [place] Care Team Personnel Name: UMER BOYER DO Position: P4 Physician - Primary Care Member Role: Primary Care Physician Address: Address: [address] [place] [id number] Name: YEIMY CANDELARIO MD Position: P4 Physician - General Surgery Member Role: Breast Surgeon Address: Address: [address] [place] [address] [place], [place] [address] Care Team Related Persons Name: ISIS CARY Address: [address] [phone] Care Team Personnel Name: UMER BOYER DO Position: P4 Physician - Primary Care Member Role: Primary Care Physician Address: Address: [address] [place] [id number] Name: YEIMY CANDELARIO MD Position: P4 Physician - General Surgery Member Role: Breast Surgeon Address: Address: [address] [place] [address] [place], [place] [address] Care Team Related Persons Name: ISIS CARY Address: [address] [phone] FOR RECORDS PERTAINING TO PATIENTS WHO ARE OR HAVE BEEN ENROLLED IN A CHEMICAL DEPENDENCY/SUBSTANCEABUSE PROGRAM, SOME INFORMATION MAY BE OMITTED. This clinical summary was aggregated from multiple sources. Caution should be exercised in using it in the provision of clinical care. This summary normalizes information from multiple sources, and as a consequence, information in this document may materially change the coding, format and clinical context of patient data. In addition, data may be omitted in some cases. CLINICAL DECISIONS SHOULD BE BASED ON THE PRIMARY CLINICAL RECORDS. [facility] [employer] provides no warranty or guarantee of the accuracy or completeness of information in this document.
[2024-07-11] MEDS: dilTIAZem 60 MG Tablet PO ×2 (17:43→22:44)
[2024-07-11] MEDS: Acetaminophen 325 MG Tablet 650 MG PO (20:07)
--- OUTSIDE RECORDS SUMMARY | 2024-07-11 20:20 | XMS RPT_ITS | CCD ---
Author Organization [facility] Care Team Providers Care Confidential Investigator Name Role Phone CHRISTY YEIMY Unavailable Unavailable JINNY DIESEL TRACTOR OPERATOR-ADMINISTRATIVE AIDE, AMARILYS Peterson Primary Care Physicia n UMER BOYER DO Primary Care Physician ANDI DIESEL TRACTOR OPERATOR-ADMINISTRATIVE AIDE, ABDELRAHMAN Carvalho Primary Care Physi freda ANDI DIESEL TRACTOR OPERATOR-ADMINISTRATIVE AIDE, ABDELRAHMAN Carvalho Attending Un available ANDI DIESEL TRACTOR OPERATOR-ADMINISTRATIVE AIDE, ABDELRAHMAN A Primary Care Un available ANDI DIESEL TRACTOR OPERATOR-ADMINISTRATIVE AIDE, ABDELRAHMAN A Attending Un available ANDI DIESEL TRACTOR OPERATOR-ADMINISTRATIVE AIDE, ABDELRAHMAN A Primary Care Un available ANDI DIESEL TRACTOR OPERATOR-ADMINISTRATIVE AIDE, ABDELRAHMAN A Attending Un available ANDI DIESEL TRACTOR OPERATOR-ADMINISTRATIVE AIDE, ABDELRAHMAN A Primary Care Un available TEOFILO CORTES MD Attending Unavaila ble ANDI DIESEL TRACTOR OPERATOR-ADMINISTRATIVE AIDE, ABDELRAHMAN A Primary Care Un available DUSTIN DIESEL TRACTOR OPERATOR-ADMINISTRATIVE AIDE, GRISELDA Sharma Attending Gallo pineda ANDI DIESEL TRACTOR OPERATOR-ADMINISTRATIVE AIDE, ABDELRAHMAN A Primary Care Un available TEOFILO CORTES MD Attending Unavaila ble ANDI DIESEL TRACTOR OPERATOR-ADMINISTRATIVE AIDE, ABDELRAHMAN A Primary Care Un available DUSTIN DIESEL TRACTOR OPERATOR-ADMINISTRATIVE AIDE, GRISELDA Sharma Attending Unavai lable ANDI DIESEL TRACTOR OPERATOR-ADMINISTRATIVE AIDE, ABDELRAHMAN A Primary Care Un available DUSTIN DIESEL TRACTOR OPERATOR-ADMINISTRATIVE AIDE, GRISELDA Sharma Attending Unavai laboleg ESCAMILLA DIESEL TRACTOR OPERATOR-ADMINISTRATIVE AIDE, ABDELRAHMAN A Primary Care Un available TEOFILO CORTES MD Attending Unavaila ble ANDI DIESEL TRACTOR OPERATOR-ADMINISTRATIVE AIDE, ABDELRAHMAN A Primary Care Un available TEOFILO CORTES MD Attending Unavaila ble ANDI DIESEL TRACTOR OPERATOR-ADMINISTRATIVE AIDE, ABDELRAHMAN A Primary Care Un available TEOFILO [...] chew, # 90 cap(s), 3 Refill(s), Pharmacy: [facility]/pharmacy #[id number], Anxiety, 164, cm, 05/11/24 11:30:00 EDT, Height, kg, 05/11/24 11:30:00 EDT, Dosing Weight Start Date: 05/11/24 Status: Ordered Start: 05-29-2023 End: 07-28-2023 Cymbalta 30 mg oral delayed release capsule Dose : 30 mg = 1 cap(s), Oral, qDay, do not crush or chew, # 90 cap(s), 3 Refill(s), Pharmacy: [facility]/pharmacy #[id number], Anxiety, 162.6, cm, 06/12/23 13:59:00 EDT, [...] qDay, # 30 tab(s), 0 Refill(s), Pharmacy: [facility]/pharmacy #3321, Mild recurrent major depression, 162.5, cm, 04/30/23 11:13:00 EDT, Height Start Date: 04/30/23 Status: Ordered Start: 01-09-2021 End: 01-04-2022 FLUoxetine 10 mg oral tablet Dose : 10 mg = 1 tab(s), Oral, qDay, # 90 tab(s), 3 Refill(s), Pharmacy: [facility]/pharmacy #3321, 162.6, cm, 01/09/21 7:35:00 EDT, Height, kg, 01/09/21 7:35:00 EDT, Dosing Weight Start Date: 01/09/21 Stop Date: 01/04/22 Status: Ordered letrozole 2.5 mg oral tablet (19 sources) Aromatase Inhibitor Start: 10-05-2023 letrozole 2.5 mg oral tablet Dose : 2.5 mg = 1 tab(s), Oral, qDay, TAKE 1 TABLET BY MOUTH EVERY DAY, # 30 tab(s), 11 Refill(s), Pharmacy: [facility]/pharmacy #[id number], 162, cm, 09/21/23 17:08:00 EST, Height, kg, 09/21/23 17:08:00 EST, Dosing Weight Start Date: 10/05/23 Status: Ordered Start: 07-13-2023 letrozole 2.5 mg oral tablet Dose : 2.5 mg = 1 tab(s), Oral, qAM, TAKE 1 TABLET BY MOUTH EVERY DAY, # 30 tab(s), 4 Refill(s), Pharmacy: [facility]/pharmacy #[id number], 162.6, cm, 07/03/23 14:39:00 EDT, Height, kg, 07/03/23 14:39:00 EDT, Dosing Weight Start Date: 07/13/23 Status: Ordered Start: 11-27-2022 letrozole 2.5 mg oral tablet Dose : 2.5 mg = 1 tab(s), Oral, qAM, TAKE 1 TABLET BY MOUTH EVERY DAY, # 30 tab(s), 4 Refill(s), Pharmacy: [facility]/pharmacy #3321, 162.6, cm, 09/01/22 13:09:00 EST, Height, kg, 09/01/22 13:09:00 EST, Dosing Weight Start Date: 11/27/22 Status: Ordered Start: 09-01-2022 letrozole 2.5 mg oral tablet Dose : 2.5 mg = 1 tab(s), Oral, qAM, TAKE 1 TABLET BY MOUTH EVERY DAY, # 30 tab(s), 4 Refill(s), Pharmacy: [facility]/pharmacy #3321, 162.6, cm, 08/18/22 12:52:00 EDT, Height, kg, 08/18/22 12:52:00 EDT, Dosing Weight Start Date: 09/01/22 Status: Ordered Start: 05-30-2022 letrozole 2.5 mg oral tablet Dose : 2.5 mg = 1 tab(s), Oral, qAM, TAKE 1 TABLET BY MOUTH EVERY DAY, # 30 tab(s), 4 Refill(s), Pharmacy: [facility]/pharmacy #3321, 162.6, cm, 03/03/22 14:07:00 EDT, Height [...] qDay, # 90 tab(s), 3 Refill(s), [facility] Hypothyroidism, 162, cm, 09/21/23 17:08:00 EST, Height, kg, 09/21/23 17:08:00 EST, Dosing Weight Start Date: 09/21/23 Stop Date: 09/15/24 Status: Ordered Start: 05-29-2023 End: 07-28-2023 levothyroxine 25 mcg (0.025 mg) oral tablet Dose : 25 mcg = 1 tab(s), Oral, qDay, # 90 tab(s), 0 Refill(s), [facility], Hypothyroidism, 162.6, cm, 06/12/23 13:59:00 [...] qDay, # 90 tab(s), 3 Refill(s), [facility], Hypertension, 164, cm, 05/11/24 11:30:00 EDT, Height, kg, 05/11/24 11:30:00 EDT, Dosing Weight Start Date: 05/11/24 Stop Date: 05/06/25 Status: Ordered Start: 05-18-2023 End: 11-14-2023 Metoprolol Succinate ER 50 m g oral TABLET extended release Dose : 50 mg = 1 tab(s), Oral, qDay, # 90 tab(s), 1 Refill(s), [facility], Hypertension, 162.5, cm, 05/18/23 12:31:00 EDT, Height, kg, 05/18/23 12:31:00 EDT, Dosing Weight Start Date: 05/18/23 Stop Date: 11/14/23 Status: Ordered Start: 04-30-2023 Metoprolol Suc cinate ER 50 mg oral TABLET extended release Dose : 50 mg = 1 tab(s), Oral, qDay, # 30 tab(s), 0 Refill(s), [facility], Hypertension, 162.5, cm, 04/30/23 11:13:00 EDT, Height Start Date: 04/30/23 Status: Ordered Start: 01-09-2021 End: 12-13-2022 Metoprolol Succinate ER 25 m g oral TABLET extended release Dose : 25 mg = 1 tab(s), Oral, qDay, # 60 tab(s), 0 Refill(s), Pharmacy: [facility]/pharmacy #3321, 162.6, cm, 09/01/22 13:09:00 EST, Height, [...] Daily, # 30 tab(s), 2 Refill(s), Pharmacy: [facility]/pharmacy #3321, Anxiety, 162.5, cm, 05/18/23 12:31:00 EDT, [...] qHS, # 90 tab(s), 1 Refill(s), Pharmacy: [facility]/pharmacy #3321, 162, cm, 09/21/23 17:08:00 EST, Height, kg, 09/21/23 17:08:00 EST, Dosing Weight Start Date: 09/21/23 Stop Date: 03/19/24 Status: Ordered Start: 09-03-2023 amLODIPine 5 m g oral tablet Dose : 5 mg = 1 tab(s), Oral, qHS, # 30 tab(s), 0 Refill(s), Pharmacy: [facility]/pharmacy #3321, 162, cm, 09/03/23 15:15:00 EST, Height, [...] 1:58:38 PM Ordering Provider: ABDELRAHMAN ESCAMILLA Normal [facility]) PTHon 05-13-2024 PTH, Intact 35.7 pg/mL Normal 18.5-88.0 [facility]) Comment on above: Performed By: #### G FR, LIPID, [id number], CBC, ADIFF, ANEU, TSH, FT4, CMP #### [address] [address] QUANTTBon 05-12-2024 QFT Criteria Comment Normal [facility]) Comment on above: Result Comment: QuantiFERON-TB Gold [...] test. Performed By: #### G FR, LIPID, [id number], CBC, ADIFF, ANEU, TSH, FT4, CMP #### [place] [address] QFT Mitogen Value 0.01 IU/mL Normal [facility] ([place]) Comment on above: Performed By: #### G FR, LIPID, [id number], CBC, ADIFF, ANEU, TSH, FT4, CMP #### [place] [address] QFT Nil Value 0.00 IU/mL Normal [facility] ([place]) Comment on above: Performed By: #### G FR, LIPID, [id number], CBC, ADIFF, ANEU, TSH, FT4, CMP #### [place] [address] QFT TB1 Ag Value 0.01 IU/mL Normal [facility] ([place]) Comment on above: Performed By: #### G FR, LIPID, [id number], CBC, ADIFF, ANEU, TSH, FT4, CMP #### [place] [address] QFT TB2 Ag Value 0.03 IU/mL Normal [facility] ([place]) Comment on above: Performed By: #### G FR, LIPID, [id number], CBC, ADIFF, ANEU, TSH, FT4, CMP #### [place] [address] QFT-TB Gold Plus Clt Inc Indeterminate Abnormal Negative [facility] ([place]) Comment on above: Result Comment: Johnathon gen [...] interferon gamma. Chemiluminescence immunoassay methodology Performed At: [facility] [id number] Noah Su PhD Ph:[phone] Performed By: #### G FR, LIPID, [id number], CBC, ADIFF, ANEU, TSH, FT4, CMP #### [address] [address] .Auto Diffon 05-11-2024 Basophil, Absolute 0.1 10 3/mcL Normal 0.0-0.2 [facility] ([place]) Comment on above: Performed By: #### G FR, LIPID, [id number], CBC, ADIFF, ANEU, TSH, FT4, CMP #### [address] [address] Basophils/100 WBC (Bld) 1.3 % Normal 0.0-2.5 [facility] ([place]) Comment on above: Performed By: #### G FR, LIPID, [id number], CBC, ADIFF, ANEU, TSH, FT4, CMP #### [address] [address] Eosinophil, Absolute 0.2 10 3/mcL Normal 0.0-0.4 [facility] ([place]) Comment on above: Performed By: #### G FR, LIPID, [id number], CBC, ADIFF, ANEU, TSH, FT4, CMP #### [address] [address] Eosinophils/100 WBC (Bld) 3.5 % Normal 0.0-7.0 [facility] ([place]) Comment on above: Performed By: #### G FR, LIPID, [id number], CBC, ADIFF, ANEU, TSH, FT4, CMP #### [address] [address] Lymphocyte, Absolute 1.7 10 3/mcL Normal 0.8-3.9 [facility] ([place]) Comment on above: Performed By: #### G FR, LIPID, [id number], CBC, ADIFF, ANEU, TSH, FT4, CMP #### [address] [address] Lymphocytes/100 WBC (Bld) 29.7 % Normal 10.0-50.0 [facility] ([place]) Comment on above: Performed By: #### G FR, LIPID, [id number], CBC, ADIFF, ANEU, TSH, FT4, CMP #### [address] [address] Monocyte, Absolute 0.5 10 3/mcL Normal 0.2-1.0 [facility] ([place]) Comment on above: Performed By: #### G FR, LIPID, [id number], CBC, ADIFF, ANEU, TSH, FT4, CMP #### [address] [address] Monocytes/100 WBC (Bld) 9.1 % Normal 1.7-13.0 [facility] ([place]) Comment on above: Performed By: #### G FR, LIPID, [id number], CBC, ADIFF, ANEU, TSH, FT4, CMP #### [address] [address] Neutrophils/100 WBC (Bld) 56.4 % Normal 37.0-80.0 [facility] ([place] Comment on above: Performed By: #### G FR, LIPID, [id number], CBC, ADIFF, ANEU, TSH, FT4, CMP #### [address] [address] .GFRon 05-11-2024 GFR 57 ml/min/1.73sqm Normal [facility] ([place]) Comment on above: Result Comment: GFR Population [...] meters Performed By: #### G FR, LIPID, [id number], CBC, ADIFF, ANEU, TSH, FT4, CMP #### [address] [address] GFR Non- 47 ml/min/1.73sqm Normal [facility] ([place]) Comment on above: Result Comment: GFR Population [...] meters Performed By: #### G FR, LIPID, [id number], CBC, ADIFF, ANEU, TSH, FT4, CMP #### [address] [address] .NEUABSon 05-11-2024 Neutrophil, Absolute 3.3 10 3/mcL Normal 2.9-6.2 [facility] ([place]) Comment on above: Performed By: #### G FR, LIPID, [id number], CBC, ADIFF, ANEU, TSH, FT4, CMP #### [place] [id number] CBCon 05-11-2024 Erythrocyte distribution width (RBC) [Ratio] 12.9 % Normal 11.5-14.5 [facility] ([place]) Comment on above: Performed By: #### G FR, LIPID, [id number], CBC, ADIFF, ANEU, TSH, FT4, CMP #### [place] [address] Hematocrit (Bld) [Volume fraction] 39.7 % Normal 37.0-47.0 [facility] ([place]) Comment on above: Performed By: #### G FR, LIPID, [id number], CBC, ADIFF, ANEU, TSH, FT4, CMP #### [place] [address] Hgb 13.7 G/dL Normal 12.0-16.0 [facility] ([place]) Comment on above: Performed By: #### G FR, LIPID, [id number], CBC, ADIFF, ANEU, TSH, FT4, CMP #### [address] [address] MCH (RBC) [Entitic mass] 31.0 pg Normal 27.0-31.2 [facility] ([place]) Comment on above: Performed By: #### G FR, LIPID, [id number], CBC, ADIFF, ANEU, TSH, FT4, CMP #### [address] [address] MCHC 34.4 G/dL Normal 33.0-37.0 [facility] ([place] Comment on above: Performed By: #### G FR, LIPID, [id number], CBC, ADIFF, ANEU, TSH, FT4, CMP #### [place] [address] MCV (RBC) [Entitic vol] 90.2 fL Normal 80.0-94.0 [facility] ([place] Comment on above: Performed By: #### G FR, LIPID, [id number], CBC, ADIFF, ANEU, TSH, FT4, CMP #### [address] [address] Platelet 265 10 3/mcL Normal 130-400 [facility] ([place]) Comment on above: Performed By: #### G FR, LIPID, [id number], CBC, ADIFF, ANEU, TSH, FT4, CMP #### [address] [address] Platelet mean volume (Bld) [Entitic vol] 8.7 fL Normal 7.4-10.4 [facility] ([place] Comment on above: Performed By: #### G FR, LIPID, [id number], CBC, ADIFF, ANEU, TSH, FT4, CMP #### [address] [address] RBC 4.41 10 6/mcL Normal 4.20-5.40 [facility] ([place] Comment on above: Performed By: #### G FR, LIPID, [id number], CBC, ADIFF, ANEU, TSH, FT4, CMP #### [address] [address] WBC 5.9 10 3/mcL Normal 4.6-10.8 [facility] ([place]) Comment on above: Performed By: #### G FR, LIPID, [id number], CBC, ADIFF, ANEU, TSH, FT4, CMP #### [address] [address] CMPon 05-11-2024 Albumin Level 4.3 G/dL Normal 3.5-5.0 [facility] ([place]) Comment on above: Performed By: #### G FR, LIPID, [id number], CBC, ADIFF, ANEU, TSH, FT4, CMP #### [address] [address] Albumin/Globulin [Mass ratio] 1.4 {ratio} Normal 1.1-2.5 [facility] ([place] Comment on above: Performed By: #### G FR, LIPID, [id number], CBC, ADIFF, ANEU, TSH, FT4, CMP #### [address] [address] ALP [Catalytic activity/Vol] 78 U/L Normal 40-135 [facility] ([place] Comment on above: Performed By: #### G FR, LIPID, [id number], CBC, ADIFF, ANEU, TSH, FT4, CMP #### [address] [address] ALT [Catalytic activity/Vol] 51 U/L Normal 14-59 [facility] ([place]) Comment on above: Performed By: #### G FR, LIPID, [id number], CBC, ADIFF, ANEU, TSH, FT4, CMP #### [address] [address] AST [Catalytic activity/Vol] 28 U/L Normal 10-40 [facility] ([place]) Comment on above: Performed By: #### G FR, LIPID, [id number], CBC, ADIFF, ANEU, TSH, FT4, CMP #### [address] [address] Bili Total 0.9 mg/dL Normal 0.2-1.0 [facility] ([place]) Comment on above: Result Comment: Use of this assay is not recommended for patients undergoing treatment with eltrombopag due to the potential for falsely elevated results. Performed By: #### G FR, LIPID, [id number], CBC, ADIFF, ANEU, TSH, FT4, CMP #### [address] [address] BUN/Creatinine Ratio 13 ratio Normal 7-27 [facility] ([place]) Comment on above: Performed By: #### G FR, LIPID, [id number], CBC, ADIFF, ANEU, TSH, FT4, CMP #### [address] [address] Calcium [Mass/Vol] 9.8 mg/dL Normal 8.4-10.2 [facility] ([place]) Comment on above: Performed By: #### G FR, LIPID, [id number], CBC, ADIFF, ANEU, TSH, FT4, CMP #### [address] [address] Chloride [Moles/Vol] 103 mmol/L Normal 98-107 [facility] ([place] Comment on above: Performed By: #### G FR, LIPID, [id number], CBC, ADIFF, ANEU, TSH, FT4, CMP #### [address] [address] CO2 [Moles/Vol] 27 mmol/L Normal 22-29 [facility] ([place]) Comment on above: Performed By: #### G FR, LIPID, [id number], CBC, ADIFF, ANEU, TSH, FT4, CMP #### [address] [address] Creatinine [Mass/Vol] 1.18 mg/dL High 0.55-1.02 [facility] ([place]) Comment on above: Performed By: #### G FR, LIPID, [id number], CBC, ADIFF, ANEU, TSH, FT4, CMP #### [address] [address] Electrolyte Balance 8.0 mEq/L Normal 4.0-15.0 [facility] ([place]) Comment on above: Performed By: #### G FR, LIPID, [id number], CBC, ADIFF, ANEU, TSH, FT4, CMP #### [address] [address] Globulin 3.0 G/dL Normal [facility] ([place]) Comment on above: Performed By: #### G FR, LIPID, [id number], CBC, ADIFF, ANEU, TSH, FT4, CMP #### [address] [address] Glucose [Mass/Vol] 121 mg/dL High 70-105 [facility] ([place]) Comment on above: Performed By: #### G FR, LIPID, [id number], CBC, ADIFF, ANEU, TSH, FT4, CMP #### [address] [address] Potassium [Moles/Vol] 4.5 mmol/L Normal 3.5-5.1 [facility] ([place]) Comment on above: Performed By: #### G FR, LIPID, [id number], CBC, ADIFF, ANEU, TSH, FT4, CMP #### [address] [address] Sodium [Moles/Vol] 138 mmol/L Normal 136-145 [facility] ([place]) Comment on above: Performed By: #### G FR, LIPID, [id number], CBC, ADIFF, ANEU, TSH, FT4, CMP #### [address] [address] Total Protein 7.3 G/dL Normal 6.4-8.2 [facility] ([place]) Comment on above: Performed By: #### G FR, LIPID, [id number], CBC, ADIFF, ANEU, TSH, FT4, CMP #### [address] [address] Urea nitrogen [Mass/Vol] 15 mg/dL Normal 7-18 [facility] ([place] Comment on above: Performed By: #### G FR, LIPID, [id number], CBC, ADIFF, ANEU, TSH, FT4, CMP #### [address] [address] FT4on 05-11-2024 Free T4 [Mass/Vol] 0.75 ng/dL Low 0.76-1.46 [facility] ([place]) Comment on above: Performed By: #### G FR, LIPID, [id number], CBC, ADIFF, ANEU, TSH, FT4, CMP #### [address] [address] LIPIDon 05-11-2024 Cholesterol [Mass/Vol] 195 mg/dL Normal 0-200 [facility] ([place]) Comment on above: Result Comment: Chol esterol Reference Interval: Less than 200 Desirable 200-239 Borderline high risk 240 and above High risk Performed By: #### G FR, LIPID, [id number], CBC, ADIFF, ANEU, TSH, FT4, CMP #### [address] [address] Cholesterol in HDL [Mass/Vol] 74 mg/dL High 40-60 [facility] ([place]) Comment on above: Performed By: #### G FR, LIPID, [id number], CBC, ADIFF, ANEU, TSH, FT4, CMP #### [address] [address] Cholesterol in LDL [Mass/Vol] 111 mg/dL Normal 0-130 [facility] ([place]) Comment on above: Performed By: #### G FR, LIPID, [id number], CBC, ADIFF, ANEU, TSH, FT4, CMP #### [address] [address] Triglyceride [Mass/Vol] 48 mg/dL Normal 0-150 [facility] ([place]) Comment on above: Result Comment: Trig lyceride Reference Interval: Less than 150 Normal 150-199 Borderline high risk 200-499 High risk 500 or higher Very high risk Performed By: #### G FR, LIPID, [id number], CBC, ADIFF, ANEU, TSH, FT4, CMP #### [place] [address] [place], [place] [address] TSHon 05-11-2024 TSH Qn 1.08 m[IU]/L Normal 0.36-3.74 [facility] ([place]) Comment on above: Performed By: #### G FR, LIPID, [id number], CBC, ADIFF, ANEU, TSH, FT4, CMP #### [address] [address] BD BONE D[facility] BD BONE DENSITY DEXA AXIAL SKELETON [...] 11:01:02 AM Ordering Provider: TEOFILO CORTES Normal [facility] ([place]) Yaneth 09-22-2023 U Creatinine 46.5 mg/dL Normal 28.0-117.0 [facility]) Comment on above: Performed By: #### M ALBR #### [facility] [address] [place], [place] [address] U Microalb 774 mcg/dL Normal [facility]) Comment on above: Performed By: #### M ALBR #### [facility] [address] [place], [place] [address] U Ratio Alb/Cre 17 mcg/mg Normal 0-30 [facility]) Comment on above: Performed By: #### M ALBR #### [address] [address] LABORATORYOrdered By: Robert Laguerre on 09-21-2023 Albumin [...] SOFT TISSUE MASS ORIGINAL EXAMINATION: SOFT TISSUE KSPKDLHFOR13/20/2023 1:12 pm TECHNIQUE: Grayscale and Doppler sonographic evaluation of the right scalp, temporal region. COMPARISON: Ultrasound soft tissue 05/05/2023, MRI brain 06/01/2023 HISTORY: ORDERING SYSTEM PROVIDED HISTORY: Reason for Exam: Right zoroastrian FINDINGS: Redemonstration of hypoechoic/heterogenous well-defined ovoid lesion [...] 09/15/2023 11:41:12 AM Ordering Provider: TEOFILO Garcia [facility] ([place]) [place] MAMMOGRAM SCREENING BILAT ERAL W/TOMOon 08-03-2023 MA MAMMOGRAM SCREENING BILATERAL W/DEAN ORIGINAL FROM: [address] [address] PROCEDURE FOR: ANNE CARY [address] [place] [id number] Home: PID#: [id number] Exam#: [id number] : 1965 Age: 57 TO: TEOFILO CORTES MD [address] [place], [place] [address] Fax: NO FAX EXAMINATION: SCREENING DIGITAL BILATERAL [...] TEOFILO CORTES copy to: GRISELDA CHAN APRN ADMINISTRATIVE AIDE, ph: [phone], fax: NO FAX Uniform Designer: THELMA GARDINER RT (R) (M) (CT) letter sent: Normal BI-RADS 1 and 2 Mammogram BI-RADS: 2 Benign Normal [facility] ([place]) [place] BONE IMAGING WHOLE BODYon 06-22-2023 NM [...] 06/22/2023 4:39:49 PM Ordering Provider: TEOFILO Garcia [facility] ([place]) MRI BRAIN W/ + W/O CONTRASTo n [...] SYSTEM PROVIDED HISTORY: Reason for Exam: right zoroastrian pain and palpable mass FINDINGS: Within the [...] 06/04/2023 1:37:29 PM Ordering Provider: ABDELRAHMAN Garcia [facility] ([place]) LABORATORYOrdered By: Cheyenne Deshpande on 09-06-2021 Beta HCG ( test) Ql (U) Negative (09/06/21 7:38 AM) [facility] Work Phone: LABORATORYOrdered By: SYSTEM SYSTEM on [...] PROGRESSon 07-27-2018 Protein mass conc HNO ID: [id number] thor: Jhon ([facility]) NossService: (none)Author Type: Genetic CounselorType: Progress NotesFiled: 08/10/2018 11:56 AMNote Text:[facility] STORMCenter For Personalized Genetic HealthcareConsultation NoteGenetic Counselor: Jhon Phillips, MS, [facility] HOSPITALatient: Anne CaryMRN: [id number] Name and confirmed at initiation of visit. [...] was at age 14PostmenopausalUterus Intact: YesOvaries Intact: [id number] , first live at age 23Breast fed: [...] minutes, greater than 50% of whichwas spent dqhl-uc-[id number] counseling. This plan is being carried out per Dr.Charis Mora's recommendations. This note will also be sent to thereferring provider via the electronic medical record.Jhon Phillips MS, [facility], Licensed Genetic CounselorEPIC CC:Iraida Alford. Tika Dangelo BY US MAIL:Yeimy Candelario [facility] Vital Signs Date Time Vital Sign Value Performing Clinician Matt byrd 09-06-2021 11:08-0500 Body temperature 97.16 [degF] SULMA POND MD [facility] 09-06-2021 11:08-0500 Diastolic blood pressure 82 mm[Hg] SULMA POND MD [facility] 09-06-2021 11:08-0500 Heart rate 80 /min SULMA POND MD [facility] 09-06-2021 11:08-0500 Heart rate 79 /min SULMA POND MD [facility] 09-06-2021 11:08-0500 Mean blood pressure 99 mm[Hg] SULMA POND MD [facility] 09-06-2021 11:08-0500 Reason For Taking VItal Signs SULMA POND MD [facility] 09-06-2021 11:08-0500 Respiratory rate 16 /min SULMA POND MD [facility] 09-06-2021 11:08-0500 Systolic blood pressure 134 mm[Hg] SULMA POND MD [facility] 09-06-2021 10:57-0500 Body temperature 98.24 [degF] SULMA POND MD [facility] 09-06-2021 10:57-0500 Diastolic Blood Pressure NBP 83 1 SULMA POND MD [facility] 09-06-2021 10:57-0500 Heart rate 83 /min SULMA POND MD [facility] 09-06-2021 10:57-0500 Mean blood pressure 93 mm[Hg] SULMA POND MD [facility] 09-06-2021 10:57-0500 Respiratory rate 18 /min SULMA POND MD [facility] 09-06-2021 10:57-0500 Systolic Blood Pressure NBP 132 1 SULMA POND MD [facility] 09-06-2021 10:41-0500 Diastolic Blood Pressure NBP 70 1 SULMA POND MD [facility] 09-06-2021 10:41-0500 Heart rate 79 /min SULMA POND MD [facility] 09-06-2021 10:41-0500 Mean blood pressure 76 mm[Hg] SULMA POND MD [facility] 09-06-2021 10:41-0500 Respiratory rate 18 /min SULMA POND MD [facility] 09-06-2021 10:41-0500 Systolic Blood Pressure NBP 117 1 SULMA POND MD [facility] 09-06-2021 10:26-0500 Body temperature 96.8 [degF] SULMA POND MD [facility] 09-06-2021 10:26-0500 Diastolic Blood Pressure NBP 82 1 SULMA POND MD [facility] 09-06-2021 10:26-0500 Mean blood pressure 94 mm[Hg] SULMA POND MD [facility] 09-06-2021 10:26-0500 Systolic Blood Pressure NBP 134 1 SULMA POND MD [facility] 09-06-2021 09:45-0500 Body temperature 96.8 [degF] SULMA POND MD [facility] 09-06-2021 09:30-0500 Body temperature 96.8 [degF] SULMA POND MD [facility] 09-06-2021 09:15-0500 Body temperature 96.8 [degF] SULMA POND MD [facility] 09-06-2021 07:38-0500 Body height 163.8 cm SULMA POND MD [facility] 09-06-2021 07:38-0500 Body weight 69.5 kg SULMA POND MD [facility] 09-06-2021 07:38-0500 Diastolic blood pressure 81 mm[Hg] SULMA POND MD [facility] 09-06-2021 07:38-0500 Heart rate 74 /min SULMA POND MD [facility] 09-06-2021 07:38-0500 Mean blood pressure 96 mm[Hg] SULMA POND MD [facility] 09-06-2021 07:38-0500 Systolic blood pressure 126 mm[Hg] SULMA POND MD [facility] 09-03-2021 07:58-0500 Body height 165 cm SULMA POND MD [facility] 09-03-2021 07:58-0500 Body temperature 97.88 [degF] SULMA POND MD [facility] 09-03-2021 07:58-0500 Body weight 69.6 kg SULMA POND MD [facility] 09-03-2021 07:58-0500 diastolic 86 mm[Hg] SULMA POND MD [facility] 09-03-2021 07:58-0500 Heart rate 71 /min SULMA POND MD [facility] 09-03-2021 07:58-0500 systolic 144 mm[Hg] SULMA POND MD [facility] Encounters Encounter Date Encounter Type Care Provider Facility Start: 05-25-2024 End: 05-25-2024 ambulatory ABDELRAHMAN ESCAMILLA APRN-ADMINISTRATIVE AIDE Facility:B Start: 05-25-2024 End: 05-25-2024 Patient encounter procedure ABDELRAHMAN ESCAMILLA APRN-ADMINISTRATIVE AIDE [facility] Start: 05-11-2024 End: 05-11-2024 ambulatory ABDELRAHMAN ESCAMILLA APRN-ADMINISTRATIVE AIDE Facility:B Start: 03-29-2024 End: 03-29-2024 ambulatory TEOFILO CORTES MD Facility:B Start: 03-29-2024 End: 03-29-2024 Patient encounter procedure TEOFILO CORTES MD [facility] Start: 03-08-2024 ambulatory GRISELDA Ingram DIESEL TRACTOR OPERATOR-ADMINISTRATIVE AIDE Facility:A Start: 03-08-2024 End: 03-08-2024 ambulatory GRISELDA CHAN DIESEL TRACTOR OPERATOR-ADMINISTRATIVE AIDE Facility:A Start: 03-08-2024 End: 03-08-2024 Patient encounter procedure GRISELDA CHAN DIESEL TRACTOR OPERATOR-ADMINISTRATIVE AIDE [facility] Start: 10-05-2023 End: 10-05-[address] NANDO BALLESTEROS MD Facility:B Start: 10-05-2023 End: 10-05-[address] NANDO BALLESTEROS MD [facility] Start: 09-21-2023 End: 09-25-2023 ambulatory ABDELRAHMAN ESCAMILLA DIESEL TRACTOR OPERATOR-ADMINISTRATIVE AIDE Facility:B Start: 09-21-2023 End: 09-25-2023 Outreach Lab ABDLERAHMAN ESCAMILLA DIESEL TRACTOR OPERATOR-ADMINISTRATIVE AIDE [facility] Start: 09-14-2023 End: 09-14-2023 ambulatory TEOFILO CORTES MD Facility:B Start: 09-14-2023 End: 09-14-2023 Patient encounter procedure TEOFILO CORTES MD [facility] Start: 09-03-2023 End: 09-03-2023 ambulatory GRISELDA CHAN DIESEL TRACTOR OPERATOR-ADMINISTRATIVE AIDE Facility:A Start: 08-03-2023 End: 08-03-2023 ambulatory TEOFILO CORTES MD Facility:B Start: 07-03-2023 End: 07-03-2023 ambulatory TEOFILO CORTES MD Facility:A Start: 06-22-2023 End: 06-22-2023 ambulatory TEOFILO CORTES MD Facility:B Start: 06-22-2023 End: 06-22-2023 Patient encounter procedure TEOFILO CORTES MD [facility] Start: 06-12-2023 End: 06-12-2023 ambulatory TEOFILO CORTES MD Facility:A Start: 06-01-2023 End: 06-01-2023 ambulatory ABDELRAHMAN ESCAMILLA DIESEL TRACTOR OPERATOR-ADMINISTRATIVE AIDE Facility:B Start: 06-01-2023 End: 06-01-2023 Patient encounter procedure ABDELRAHMAN ESCAMILLA DIESEL TRACTOR OPERATOR-ADMINISTRATIVE AIDE [facility] Start: 05-13-2023 End: 05-13-2023 Patient encounter procedure UMER BOYER DO [facility] Start: 05-05-2023 End: 05-05-2023 Patient encounter procedure UMER BOYER DO [facility] Start: 02-16-2023 End: 02-16-2023 Patient encounter procedure GRISELDA CHAN DIESEL TRACTOR OPERATOR-ADMINISTRATIVE AIDE [facility] Start: 09-08-2022 End: 09-08-2022 Patient encounter procedure TEOFILO CORTES MD [facility] Start: 08-23-2022 End: 08-23-2022 Patient encounter procedure ARMAAN FIELD MD [facility] Start: 08-18-2022 End: 08-18-2022 Patient encounter procedure GRISELDA CHAN DIESEL TRACTOR OPERATOR-ADMINISTRATIVE AIDE [facility] Start: 03-12-2022 End: 03-12-2022 Patient encounter procedure TEOFILO CORTES MD [facility] Start: 11-25-2021 End: 11-25-2021 Patient encounter procedure ARMAAN FIELD MD [facility] Start: 09-06-2021 End: 09-06-2021 SAME DAY STAY SULMA POND MD [facility] Start: 09-03-2021 End: 09-03-2021 Admission to [facility] SULMA POND MD [facility] Start: 08-20-2021 End: 08-20-[address] YEIMY CANDELARIO MD [facility] Start: 07-27-2018 End: 07-29-2018 Patient encounter YEIMY CANDELARIO [facility] Procedures Date Procedure Procedure Detail Performing [...] YEIMY CANDELARIO MD Start: Echocardiography JOELLE ESCAMILLA DIESEL TRACTOR OPERATOR-ADMINISTRATIVE AIDE Comment on above: EF 60-65% Appendectomy DR YEIMY HALL MD Extraction of wisdom tooth Nicholas POND MD History of radiation therapy History of radiation therapy GRISELDA CHAN DIESEL TRACTOR OPERATOR-ADMINISTRATIVE AIDE Radioisotope scan of bone RAFAEL CORTES MD Tubal occlusion DR YEIMY BELLO MD Immunizations Immunization Date Immunization Notes Care Provider Fa [facility] 10-02-2021 influenza, injectabl e, quadrivalent, contains preservative; Translations: [Fluarix PF Quadrivalent ] ARMAAN FIELD MD [facility] 07-25-2021 COVID-19, mRNA, LNP- S, PF, 100 mcg/ 0.5 mL dose; Translations: [Moderna COVID-19 Vaccine] DR YEIMY CANDELARIO MD [facility] 06-26-2021 COVID-19, mRNA, LNP- S, PF, 100 mcg/ 0.5 mL dose; Translations: [Moderna COVID-19 Vaccine] DR YEIMY CANDELARIO MD [facility] Payers Date Payer Category Payer Private Health Insurance [id number] 2023 Private Health Insurance [id number] 1965 Unknown [id number] 2.16.8 [id number] 1965 Unknown [id number] 2.16.8 [id number] 1966 Unknown [id number] 2.16.8 40.1.529801.3.579.2 1966 Unknown [id number] 2.16.8 40.1.525197.3.579.2 1966 Unknown [id number] 2.16.8 40.1.970115.3.579.2 1966 Unknown [id number] 2.16.8 40.1.788866.3.579.2 1966 Unknown [id number] 2.16.8 40.1.727596.3.579.2 1966 Unknown [id number] 2.16.8 40.1.256168.3.579.2 1966 Unknown [id number] 2.16.8 40.1.578647.3.579.2 1966 Unknown [id number] 2.16.8 40.1.390933.3.579.2.627 1966 Unknown [id number] 2.16.8 40.1.087516.3.579.2.627 1966 Unknown [id number] 2.16.8 [id number] 1966 Unknown [id number] 2.16.8 [id number] 1966 Unknown [id number] 2.16.8 [id number] Social History Date Type Detail Facility Start: 06-15-2019 End: 04-30-2023 Never smoked tobacco (finding) [facility] Sex Assigned At Female [facility] Clinical Notes 09-06-2021 to 05-25-2024 [...] 05/25/2024 1:58:38 PM Ordering Provider: ABDELRAHMAN ESCAMILLA [facility] 06-22-2023 Note ORIGINAL EXAMINATION: WHOLE BODY BONE [...] 06/22/2023 4:39:49 PM Ordering Provider: TEOFILO CORTES [facility] 09-08-2022 Note ORIGINAL FROM: [facility] [address] [place], [place] [address] PROCEDURE FOR: ANNE CARY [address] [place] [address] Home: PID#: [id number] Exam#: [id number] : 1965 Age: 56 TO: TEOFILO CORTES MD [address] [place], [place] [address] Fax: NO FAX EXAMINATION: DIAGNOSTIC BILATERAL MAMMOGRAM [...] BREAST. copy to: AL WANG MD, ph: [phone], fax: [phone] Uniform Designer: THELMA GARDINER RT (R) (M) (CT) letter sent: Normal BI-RADS 1 and 2 Mammogram BI-RADS: 2 Benign [facility] 09-08-2022 Note ORIGINAL FROM: [facility] [address] [place], [place] [address] PROCEDURE FOR: ANNE CARY [address] [place] [address] Home: PID#: [id number] Exam#: [id number] : 1965 Age: 56 TO: TEOFILO CORTES MD [address] [place], [place] [address] Fax: NO FAX EXAMINATION: DIAGNOSTIC BILATERAL MAMMOGRAM [...] BREAST. copy to: AL WANG MD, ph: [phone], fax: [phone] Uniform Designer: THELMA GARDINER RT (R) (M) (CT) letter sent: Normal BI-RADS 1 and 2 Mammogram BI-RADS: 2 Benign [facility] 09-06-2021 Hospital Discharge instructions Patient Education 09/06/2021 [...] Follow these instructions at home: Medicines Take hqce-pfq-veigbsd and prescription medicines only as told by [...] and water are not available, use hand hearing aid fitter. ?Change your dressing as told by your [...] your urine clear or pale yellow. ?Take bzdo-yjq-lrigxzr or prescription medicines. ?Eat foods that are [...] 08/02/2014 Document Revised: 09/24/2018 Document Reviewed: 06/19/2017 [employer] Patient Education 2020 [employer]. Follow Up Care 07/30/2021 14:33:00 With:SULMA POND MD, [facility] Address: [phone] When: Unknown Comments:Follow-up as needed [facility] Evaluation + Plan note Future Appointments Appointment Date:08/22/2021 09:30:00 AM Scheduled Provider:SULMA POND MD Location:PLASTICS Appointment Type:PS OV Pre Op Appointment Date:11/26/2021 11:30:00 AM Scheduled Provider:ARMAAN FIELD MD Location:HEM ONC Appointment Type:HEM ONC OV Follow Up Appointment Date:12/31/2021 03:40:00 PM Scheduled Provider:YEIMY CANDELARIO MD Location:BSS CAN Appointment Type:BS OV Follow Up w/ Imaging [facility] Evaluation + Plan note Future Appointments Appointment Date:11/26/2021 11:30:00 AM Scheduled Provider:RAMAAN FIELD MD Location:HEM ONC Appointment Type:HEM ONC OV Follow Up Appointment Date:12/31/2021 03:40:00 PM Scheduled Provider:YEIMY CANDELARIO MD Location:[facility] Appointment Type:BS OV Follow Up w/ [facility] Evaluation + Plan note Future Appointments Appointment Date:11/26/2021 11:30:00 AM Scheduled Provider:ARMAAN FIELD MD Location:HEM ONC Appointment Type:HEM ONC OV Follow Up Appointment Date:12/05/2021 09:30:00 AM Scheduled Provider:SULMA POND MD Location:[facility] Appointment Type:PS OV Post Op Recheck Appointment Date:12/31/2021 03:40:00 PM Scheduled Provider:YEIMY CANDELARIO MD Location:[facility] Appointment Type:BS OV Follow Up w/ [facility] Evaluation + Plan note Future Appointments [...] 03/03/22BD Bone Density DEXA Axial Skeleton 03/21/22 [facility] Evaluation + Plan note Future Appointments Appointment Date:09/01/2022 01:00:00 PM Scheduled Provider:TEOFILO CORTES MD Location:HEM ONC Appointment Type:HEM ONC OV Follow Up Appointment Date:09/08/2022 01:00:00 PM Scheduled Provider: Location:RAD Appointment Type:MA Mammogram Diagnostic Bilateral w/ Juan Appointment Date:09/11/2022 04:30:00 PM Scheduled Provider:UMER BOYER DO Location:[facility] Appointment Type:PC Wellness Bee Healthy Appointment Date:02/16/2023 01:00:00 PM Scheduled Provider:GRISELDA CHAN Location:[facility] Appointment Type:BS OV Follow Up Future Scheduled TestsPathology Tissue Request 01/31/22Ferritin 03/03/22Lactate Dehydrogenase 03/03/22Complete Blood Count 05/26/22Complete Blood Count 03/03/22Iron Studies 03/03/22Complete Metabolic Panel 05/26/22Complete Metabolic Panel 03/03/22MA Mammo Diagnostic Bilateral w/Dean 09/08/22 [facility] Evaluation + Plan note Future Appointments Appointment Date:09/11/2022 04:30:00 PM Scheduled Provider:UMER BOYER DO Location:[facility] Appointment Type:PC Wellness Bee Healthy Appointment Date:02/16/2023 [...] 05/26/22Complete Metabolic Panel 03/01/23Complete Metabolic Panel 03/03/22 [facility] Evaluation + Plan note Future Appointments Appointment [...] Panel 03/03/22MA Mammo Diagnostic Bilateral w/Dean 08/18/23 [facility] Evaluation + Plan note Future Appointments Appointment Date:05/18/2023 12:30:00 PM Scheduled Provider:ABDELRAHMAN ESCAMILLA Location:[facility] Appointment Type:PC Wellness Annual Appointment Date:08/24/2023 01:00:00 [...] 08/18/23MA Mammo Screening Bilateral w/ Dean 08/02/23 [facility] Evaluation + Plan note Future Appointments Appointment Date:05/18/2023 12:30:00 PM Scheduled Provider:ABDELRAHMAN ESCAMILLAADMINISTRATIVE AIDE Location:[facility] Appointment Type:PC Wellness Annual [...] 08/18/23MA Mammo Screening Bilateral w/ Dean 08/02/23 [facility] Evaluation + Plan note Future Appointments Appointment [...] 08/18/23MA Mammo Screening Bilateral w/ Dean 08/02/23 [facility] Evaluation + Plan note Future Appointments Appointment [...] 08/18/23MA Mammo Screening Bilateral w/ Dean 08/03/23 [facility] Evaluation + Plan note Future Appointments Appointment [...] 08/18/23BD Bone Density DEXA Axial Skeleton 03/28/24 [facility] Evaluation + Plan note Future Appointments Appointment [...] 03/03/24BD Bone Density DEXA Axial Skeleton 03/28/24 [facility] Evaluation + Plan note Future Appointments Appointment [...] 03/03/24BD Bone Density DEXA Axial Skeleton 03/28/24 [facility] Evaluation + Plan note Future Appointments Appointment Date:03/28/2024 01:00:00 PM Scheduled Provider: Location:RAD Appointment Type:BD Bone Density DEXA Axial Skeleton Appointment Date:04/04/2024 02:00:00 PM Scheduled Provider:TEOFILO CORTES MD Location:[facility]C Appointment Type:HEM ONC OV Follow Up Appointment Date:09/13/2024 10:00:00 AM Scheduled Provider: Location:BCC Appointment Type:MA Mammogram Screening Bilateral w/ Dean Appointment Date:09/13/2024 10:30:00 AM Scheduled Provider:GRISELDA CHAN APRN-FLORENTIN Location:[facility] CAN Appointment Type:BS OV Follow Up w/ Imaging Future Scheduled TestsCA 27 29 06/12/23Carbohydrate Antigen 15-3 06/12/23Carcinoembryonic Antigen 06/12/23Complete Blood Count 03/01/23Complete Blood Count 11/02/23Complete Blood Count 06/12/23Complete Blood Count 03/03/24Complete Metabolic Panel 03/01/23Complete Metabolic Panel 11/02/23Complete Metabolic Panel 05/13/23Complete Metabolic Panel 06/12/23Complete Metabolic Panel 03/03/24MA Mammo Screening Bilateral w/ Dean 09/13/24BD Bone Density DEXA Axial Skeleton 03/28/24 [facility] Evaluation + Plan note Future Appointments [...] 03/03/24MA Mammo Screening Bilateral w/ Dean 09/13/24 [facility] Evaluation + Plan note Future Appointments Appointment Date:06/01/2024 01:00:00 PM Scheduled Provider: Location:[facility] Appointment Type:PC Nurse Injection Appointment Date:08/03/2024 02:00:00 PM Scheduled Provider:ABDELRAHMAN ESCAMILLA Location:[facility] Appointment Type:PC Wellness Female [...] 03/03/24MA Mammo Screening Bilateral w/ Dean 09/13/24 [facility] Hospital course Narrative No data available for this section [facility] Hospital Discharge instructions No data available for this section [facility] Progress note No data available for this section [facility] Summary Purpose Family History No Family History [...] section and content) DATE CREATED AUTHOR 08/26/2018 [facility] DATE CREATED AUTHOR AUTHOR'S ORGANIZ ATION 05/29/2024 [facility] [place] ([place] Care Team (unrecognized sect ion and content) Personnel Name: UMER BOYER DO Address: [address] [place] [address]- Care Team Personnel Name: UMER BOYER DO Position: P4 Physician - Primary Care Member Role: Primary Care Physician Address: Address: [address] [place] [id number] [place] [address] Name: YEIMY CANDELARIO MD Position: P4 Physician - General Surgery Member Role: Breast Surgeon Address: Address: [address] [place] [address] Breast [place], [place] [address] Care Team Related Persons Name: ISIS CARY Address: Home [address] [place], [place] [phone] [place] Care Team Personnel Name: YEIMY CANDELARIO MD Position: P4 Physician - General Surgery Member Role: Breast Surgeon Address: Address: [address] [facility] [place] [address]- Name: ABDELRAHMAN ESCAMILLA APRN-ADMINISTRATIVE AIDE Position: P4 [employer] Scientist Member Role: Primary Care Physician Address: Address: [address] [place] [address]- Care Team Related Persons Name: ISIS CARY Address: Home [address] [place], [place] [phone] [place] Care Team Personnel Name: YEIMY CANDELARIO MD Position: P4 Physician - General Surgery Member Role: Breast Surgeon Address: Address: [address] [place] [address] [place] [address]- Name: ABDELRAHMAN ESCAMILLA DIESEL TRACTOR OPERATOR-ADMINISTRATIVE AIDE Position: P4 [employer] Research Scientist Member Role: Primary Care Physician Address: Address: [address] [place] [address]- Care Team Related Persons Name: ISIS CARY Address: Home [address] [place], [place] [phone] [place] Care Team Personnel Name: YEIMY CANDELARIO MD Position: P4 Physician - General Surgery Member Role: Breast Surgeon Address: Address: [address] [place] [address] [place] [address]- Name: ABDELRAHMAN ESCAMILLA DIESEL TRACTOR OPERATOR-ADMINISTRATIVE AIDE Position: P4 [employer] Scientist Member Role: Primary Care Physician Address: Address: [address] [place] [address]- Care Team Related Persons Name: ISIS CARY Address: Home [address] [place], [place] [phone] [place] Care Team Personnel Name: YEIMY CANDELAIRO MD Position: P4 Physician - General Surgery Member Role: Breast Surgeon Address: Address: [address] [facility] [place] [address]- [place] Name: ABDELRAHMAN ESCAMILLA DIESEL TRACTOR OPERATOR-ADMINISTRATIVE AIDE Position: P4 [employer] Scientist Member Role: Primary Care Physician Address: Address: [address] [place] [address] [place] Care Team Related Persons Name: MARTHA CARYWILMA Address: Home [address] [place], [place] [phone] [place] Care Team Personnel Name: YEIMY CANDELARIO MD Position: P4 Physician - General Surgery Member Role: Breast Surgeon Address: Address: [address] [facility] [place] [address]- [place] Name: ABDELRAHMAN ESCAMILLA APRN-ADMINISTRATIVE AIDE Position: P4 [employer] Research Scientist Member Role: Primary Care Physician Address: Address: [address] [place] [address]- [place] Care Team Related Persons Name: LISEMARTHA BERRYWILMA Address: Home [address] [place], [place] [phone] [place] Care Team Personnel Name: YEIMY CANDELARIO MD Position: P4 Physician - General Surgery Member Role: Breast Surgeon Address: Address: [address] [place] [address] [place] [address]- [place] Name: ABDELRAHMAN ESCAMILLA APRN-ADMINISTRATIVE AIDE Position: P4 [employer] Scientist Member Role: Primary Care Physician Address: Address: [address] [place] [address]- [place] Care Team Related Persons Name: MARTHA CARYWILMA Address: Home [address] [place], [place] [phone] [place] Care Team Personnel Name: YEIMY CANDELARIO MD Position: P4 Physician - General Surgery Member Role: Breast Surgeon Address: Address: [address] [facility] [place] [address]- [place] Name: ABDELRAHMAN ESCAMILLA APRN-ADMINISTRATIVE AIDE Position: P4 [employer] Scientist Member Role: Primary Care Physician Address: Address: [address] [place] [address]- [place] Care Team Related Persons Name: LISEMARTHA BERRYWILMA Address: Home [address] [place], [place] [phone] [place] Care Team Personnel Name: YEIMY CANDELARIO MD Position: P4 Physician - General Surgery Member Role: Breast Surgeon Address: Address: [address] [facility] [place] [address]- [place] Name: ANDI, ABDELRAHMAN A DIESEL TRACTOR OPERATOR-ADMINISTRATIVE AIDE Position: P4 [employer] Scientist Member Role: Primary Care Physician Address: Address: [address] [place] [address]- Care Team Related Persons Name: ISIS CARY Address: Home [address] [place], [place] [phone] [place] Care Team Personnel Name: YEIMY CANDELARIO MD Position: P4 Physician - General Surgery Member Role: Breast Surgeon Address: Address: [address] [place] [address] [place] [address]- [place] Name: ABDELRAHMAN ESCAMILLA DIESEL TRACTOR OPERATOR-ADMINISTRATIVE AIDE Position: P4 [employer] Scientist Member Role: Primary Care Physician Address: Address: [address] [place] [address]- Care Team Related Persons Name: ISIS CARY Address: Home [address] [place] [phone] [place] Care Team Personnel Name: YEIMY CANDELARIO MD Position: P4 Physician - General Surgery Member Role: Breast Surgeon Address: Address: [address] [place] [address] [place] [address]- [place] Name: ABDELRAHMAN ESCAMILLA DIESEL TRACTOR OPERATOR-ADMINISTRATIVE AIDE Position: P4 [employer] Scientist Member Role: Primary Care Physician Address: Address: [address] [place] [address]- Care Team Related Persons Name: ISIS CARY Address: Home [address] [place] [phone] [place] Care Team (unrecognized sect ion and content) Care Team Personnel Name: UMER BOYER DO Position: P4 Physician - Primary Care Member Role: Primary Care Physician Address: Address: [address] [place] [address]- [place] Name: YEIMY CANDELARIO MD Position: P4 Physician - General Surgery Member Role: Breast Surgeon Address: Address: [facility] [address] [place] [address] [place] [address]- Care Team Related Persons Name: LISEMARTHA BERRYWILMA Address: Home [address] [place] [phone] [place] Care Team Personnel Name: UMER BOYER DO Position: P4 Physician - Primary Care Member Role: Primary Care Physician Address: Address: [address] [place] [id number] Name: YEIMY CANDELARIO MD Position: P4 Physician - General Surgery Member Role: Breast Surgeon Address: Address: [address] [place] [address] Breast [place], [place] [address] Care Team Related Persons Name: ISIS CARY Address: [address] [phone] Care Team Personnel Name: UMER BOYER DO Position: P4 Physician - Primary Care Member Role: Primary Care Physician Address: Address: [address] [place] [phone] Name: YEIMY CANDELARIO MD Position: P4 Physician - General Surgery Member Role: Breast Surgeon Address: Address: [address] [place] [address] Breast [place], [place] [address] Care Team Related Persons Name: ISIS CARY Address: [address] [phone] FOR RECORDS PERTAINING TO PATIENTS WHO ARE [...] BE BASED ON THE PRIMARY CLINICAL RECORDS. [facility] [employer] provides no warranty or guarantee of the accuracy or completeness of information in this document.
[2024-07-11] MEDS: Metoprolol Tartrate 25 MG Tablet PO (21:45)
[2024-07-11] MEDS: MELATONIN 3 MG TABLET PO (22:44)
[2024-07-12] MEDS: Levothyroxine 25 MCG TABLET PO (05:15)
[2024-07-12] MEDS: dilTIAZem 60 MG Tablet PO (05:15)
[2024-07-12 05:23] VITALS: BP 123/92; PULSE 70; RESP 16; TEMP 36.6; O2SAT 98
[2024-07-12 05:26] LABS: Hematocrit 40.5 % (37-47); Hemoglobin 13.4 g/dL (12.0-15.0); Mean Corp Hgb Conc 33.1 g/dL (32-36); Mean Corpuscular Hgb 29.9 pg (27.0-32.0); Mean Corpuscular Volume 90.4 fL (81-99); Mean Platelet Vol. 10.1 fl (6.2-12.0); Platelet Count 264 K/mm3 (150-450); RBC Distribution Width CV 11.9 % (11.6-14.6); RBC Distribution Width SD 38.8 fl (35.1-43.9); Red Blood Count 4.48 M/mm3 (4.2-5.4); White Blood Count 6.6 K/mm3 (4.4-11.0)
[2024-07-12 05:42] LABS: Anion Gap 5 (5-15); BUN 10 mg/dL (7-18); BUN/Creat Ratio 11.9 RATIO (10-20); Calcium,Total 9.3 mg/dL (8.5-10.1); Chloride 110 mmol/L (98-107); Creatinine, Serum 0.84 mg/dL (0.55-1.02); EST Glomerular Filtration Rate 74 mL/min (>60); Est Glom Filt Rate - Afr Amer 90 mL/min (>60); Estimated Creatinine Clearance 70.98 ml/min; Glucose 113 mg/dL (74-106); Potassium 4.2 mmol/L (3.5-5.1); Sodium Level 141 mmol/L (136-145)
[2024-07-12 05:43] LABS: Magnesium 2.1 mg/dL (1.6-2.6); Phosphorus 3.4 mg/dL (2.5-4.9)
[2024-07-12 08:19] VITALS: BP 132/91; PULSE 64
[2024-07-12] MEDS: DULoxetine Hcl 30 MG Capsule PO (08:19)
[2024-07-12] MEDS: Loratadine 10 MG Tablet PO (08:19)
[2024-07-12] MEDS: Aspirin E.C. 81 MG Tablet PO (08:19)
[2024-07-12] MEDS: Metoprolol Tartrate 25 MG Tablet PO (08:19)
[2024-07-12] MEDS: Acetaminophen 325 MG Tablet 650 MG PO (08:20)
[2024-07-12 08:28] VITALS: PULSE 60
[2024-07-12 09:30] VITALS: O2SAT 98
--- NOTE | 2024-07-12 09:53 | CASEMGMT ---
AJITH QUIÑONES Assessment Face to Face with patient for initial transition planning/care coordination assessment. RN CM introduced self and role at [facility], pt voices understanding. Pt is A&Ox4 and is resting comfortably in bed and is calm. Care providers, pharmacy, and demographics verified. Admitting dx: AFIB RVR LACE Strata: 2 PCP: Lian Brito Specialists: Pt states that she sees a outpatient case manager (Dr. Rios) and an oncologist through [facility] Insurance: [employer] Prescription Benefit: Yes LNOK: Zuleima Easley (H) Living Arrangements: Pt lives with her and 2 adult children (ages 22 and 23) in a split level home with 6 steps to the upper and 6 steps to the lower portion. Pt states that there are two steps to enter the home ADLs/IADLs: Ind. 6-click is 24 Transportation: Self, DME: BP Monitor. Denies further needs HHC/SNF: Denies Hx or needs Pt?s goal: Home Plan: Home no needs. Pt denies further needs and states that she feels safe discharging home with her family once she is medically ready. Pt states that she has taken Eliquis in the past and that her insurance usually brings the cost down to 150$ and that she is acceptable to this. CM to follow. Juli Aponte RN, CM
--- NOTE | 2024-07-12 10:27 | PCM.CONS.C ---
Assessment & Plan Assessment/Plan (1) Paroxysmal A-fib: PLAN: Patient's index event this time was probably precipitated by her high intake of caffeine. Counseled to avoid caffeinated products. Presently normal sinus rhythm. Continue metoprolol. Increase to 50 mg twice daily. Diltiazem 120 mg daily. Patient's CHADS2?VASc score is 2. Recommend anticoagulation. Risks benefits were discussed with the patient. She understands these and wishes to start on anticoagulation. She was previously on anticoagulation as well and denies any history of abnormal bleeding. In the long run, the patient should be evaluated for A-fib ablation. Recommend echocardiogram and further testing as outpatient. (2) Essential (primary) hypertension: PLAN: Metoprolol and diltiazem. (3) Patent foramen ovale: PLAN: No history of CVA or TIA. Patient is to be on anticoagulation for atrial fibrillation anyway. 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 She was diagnosed with paroxysmal atrial fibrillation this last August and started on Toprol XL 50 mg daily. 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 She had also been using DayQuil for nasal allergies. She presented to the emergency room with complaints of palpitations. She was noted to be in atrial fibrillation with rapid ventricular response. She was bolused with IV diltiazem in the emergency room and then started on an infusion. Yesterday she converted to normal sinus rhythm in the afternoon. Per patient, she occasionally experiences palpitations however this was one of the longest episodes she has had. Denies any associated shortness of breath. She did have some chest tightness with her palpitations. Completely resolved after her heart rate slowed down. Patient denies any history of CVA or TIA. She does describe a history of a PFO. History of hypertension. No vascular disease. No history of heart disease. [facility] Medical History Afib Intermittent palpitations Patent foramen ovale Essential (primary) hypertension Vaginal dryness Family history of patent foramen ovale Breast cancer, right Tubal occlusion History of psoriasis Home Medications ?Medication ?Instructions ?Recorded ?Last Taken ?Type omega 3-dha 60 mg-epa 90 mg-fish 2 cap PO DAILY 10/21/13 07/10/24 History oil 500 mg capsule, delayed release vitamin B complex 1 ea PO DAILY 10/21/13 07/10/24 History loratadine 10 mg tablet 10 mg PO DAILY 04/13/20 07/10/24 History metoprolol succinate 50 mg 50 mg PO DAILY #90 tabs 08/24/20 07/11/24 Rx tablet,extended release 24 hr (Toprol XL) aspirin 81 mg tablet,delayed 81 mg PO DAILY 10/02/23 07/10/24 History release duloxetine 30 mg capsule,delayed 30 mg PO DAILY 10/02/23 07/10/24 History release levothyroxine 25 mcg tablet 25 mcg PO DAILY 10/02/23 07/10/24 History letrozole 2.5 mg tablet 2.5 mg PO DAILY 07/11/24 07/10/24 History lisinopril 10 mg tablet 10 mg PO DAILY 07/11/24 Unknown History Allergy/AdvReac Type Severity Reaction Status Date / Time lisinopril Allergy Intermediate cough Verified 07/11/24 09:32 anastrozole AdvReac headaches Verified 07/11/24 09:32 joint pain Family History Father Hypertension Mother Breast cancer Brother Leukemia Sister Breast cancer Grandfather Lung cancer Surgical History History of breast biopsy History of recent maxillofacial surgery History of appendectomy Social History household members: spouse Smoking Status: Never smoker alcohol intake: former substance use type: does not use Physical Exam Narrative Comfortable. No apparent distress. Heart sounds 1 and 2 are normal. Chest clear to auscultation bilaterally. Alert oriented x 3. No ankle edema noted. Risk Stratification Risk Stratification Applicable: No Objective Data Vital Signs: Vital Signs Temp Pulse Resp BP Pulse Ox O2 Del Method 97.8 F 60 16 132/91 H 98 Room Air 07/12/24 05:23 07/12/24 08:28 07/12/24 05:23 07/12/24 08:19 07/12/24 05:23 07/12/24 05:23 Oxygen Delivery Method Room Air Weight: 154 lb 8 oz Body Mass Index (BMI) 26.5 Intake & Output: Intake and Output for Last 24 Hours 07/10/24 07/11/24 07/12/24 23:59 23:59 23:59 Intake Total 2186.00 / 2186.00 Balance 2186.00 / 2186.00 Lab / Micro Data 07/12/24 05:11 07/12/24 05:11 Labs: Laboratory Results - last 24 hr 07/11/24 12:35: Troponin I High Sens 12, TSH 1.630 07/12/24 05:11: WBC 6.6, RBC 4.48, Hgb 13.4, Hct 40.5, MCV 90.4, MCH 29.9, MCHC 33.1, RDW Std Deviation 38.8, RDW Coeff of Dasha 11.9, Plt Count 264, MPV 10.1, Sodium 141, Potassium 4.2, Chloride 110 H, Carbon Dioxide 26.0, Anion Gap 5, BUN 10, Creatinine 0.84, Estim Creat Clear Calc 70.98, Est GFR (MDRD) Af Amer 90, Est GFR (MDRD) Non-Af 74, BUN/Creatinine Ratio 11.9, Glucose 113 H, Calcium 9.3, Phosphorus 3.4, Magnesium 2.1 Rhythm Strip Rhythm Strip: Sinus Rhythm Rate: 68 Ectopy: None Cardiology Labs/Tests 07/12/24 05:11: WBC 6.6, RBC 4.48, Hgb 13.4, Hct 40.5, MCV 90.4, MCH 29.9, MCHC 33.1, Plt Count 264, MPV 10.1, Sodium 141, Potassium 4.2, Chloride 110 H, Carbon Dioxide 26.0, Anion Gap 5, BUN 10, Creatinine 0.84, Est GFR (MDRD) Af Amer 90, Est GFR (MDRD) Non-Af 74, BUN/Creatinine Ratio 11.9, Glucose 113 H, Calcium 9.3, Phosphorus 3.4, Magnesium 2.1 Rhythm: EKG: Admission ECG showed atrial fibrillation with rapid ventricular response. Later ECG shows normal sinus rhythm. ECHO: EF was normal as recorded on an echocardiogram from 2019. Stress Test: Cardiac Cath: PCI: CT Surgery: Holter monitor: EPS: PPM: CXR: Chest CT Scan: Radiography Diagnostic Testing: Radiology Impression Chest X-Ray 07/11/24 09:40 IMPRESSION: No radiographic evidence of acute cardiopulmonary disease. Electronically Signed: Svitlana Leal MD at 10:43 EDT ,
[2024-07-12] MEDS: APIXABAN 5 MG TABLET PO (11:14)
[2024-07-12] MEDS: dilTIAZem CD 120 MG Capsule PO (11:14)
[2024-07-12 11:15] VITALS: BP 128/92; PULSE 66; RESP 20; TEMP 36.1; O2SAT 99
--- NOTE | 2024-07-12 11:22 | DCINST_ITS ---
Discharge Instructions Diet Discharge Diet: - (Avoid caffeinated products) Activity Discharge Activity: No Restrictions Follow Up Care Test Results: Test results from this visit will be discussed in further detail at your follow- up appointment, if applicable. Discharge Plan Admission Admit Date/Time: 07/11/24 11:17 Primary Reason for Your Visit: Chest tightness and palpitations Attending Provider: Polo Read Primary Care Provider: Lian Brito NP Consulting Providers: Barron Silva Instructions Additional Instructions / Restrictions: Please take new medications as prescribed below. 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 Discharge Orders/Prescriptions Prescriptions: New metoprolol tartrate 50 mg Tablet 50 mg PO BID 30 Days Qty: 60 2RF diltiazem HCl 120 mg Capsule,Extended Release 24hr 120 mg PO DAILY 30 Days Qty: 30 2RF Eliquis 5 mg Tablet 5 mg PO BID 30 Days Qty: 60 0RF Continued vitamin B complex 1 EACH capsule 1 ea PO DAILY omega 5-arq-fir-fish oil 500 MG capsule,delayed release(DR/EC) 2 cap PO DAILY loratadine 10 MG tablet 10 mg PO DAILY duloxetine 30 mg capsule,delayed release(DR/EC) 30 mg PO DAILY Patient Comments: TAKE 1 CAPSULE BY MOUTH EVERY DAY .DO NOT CRUSH OR CHEW levothyroxine 25 mcg tablet 25 mcg PO DAILY Patient Comments: TAKE 1 TABLET BY MOUTH EVERY DAY letrozole 2.5 mg tablet 2.5 mg PO DAILY Discontinued metoprolol succinate [Toprol XL] 50 mg tablet extended release 24 hr 50 mg PO DAILY Qty: 90 3RF aspirin 81 mg tablet,delayed release (DR/EC) 81 mg PO DAILY Patient Comments: TAKE 1 TABLET BY MOUTH EVERY DAY lisinopril 10 mg tablet 10 mg PO DAILY Patient Comments: pt hasn't been taking because it makes her cough Referrals / Follow Up: Lian Brito NP, [facility] [Primary Care Provider] - Disposition Disposition (needs filled in before D/C Order can be placed): Home, Self Care
--- NOTE | 2024-07-12 11:26 | PCM.DC.SUM ---
Providers Date of Admission: 07/11/24 Date of Discharge: 07/12/24 Primary Care Physician: NATHAN Maravilla Consultations 07/11/24 13:15 Consult: Cardiology Routine Consulting Provider: Barron Silva Reason for Consult: recurrent afib w/ rvr EMERGENT Consult: No MD Notified: Yes Date Notified: 07/11/24 Time Notified: 13:15 Method of Notification: Text Reason For Visit: AFIB WITH RVR Diagnosis Discharge Diagnosis (1) Paroxysmal A-fib: Status: Inactive Code(s): I48.0 - Paroxysmal atrial fibrillation (2) Essential (primary) hypertension: Status: Chronic Code(s): I10 - Essential (primary) hypertension (3) Patent foramen ovale: Status: Chronic Code(s): Q21.1 - Atrial septal defect Medications at Discharge Home Medications omega 3-dha 60 mg-epa 90 mg-fish oil 500 mg capsule, delayed release 2 cap PO DAILY 10/21/13 vitamin B complex 1 ea PO DAILY 10/21/13 loratadine 10 mg tablet 10 mg PO DAILY 04/13/20 duloxetine 30 mg capsule,delayed release 30 mg PO DAILY 10/02/23 levothyroxine 25 mcg tablet 25 mcg PO DAILY 10/02/23 letrozole 2.5 mg tablet 2.5 mg PO DAILY 07/11/24 apixaban 5 mg tablet (Eliquis) 5 mg PO BID 30 days #60 tabs 07/12/24 diltiazem HCl 120 mg capsule,extended release 24 hr 120 mg PO DAILY 30 days #30 caps 07/12/24 metoprolol tartrate 50 mg tablet 50 mg PO BID 30 days #60 tabs 07/12/24 Hospital Course Operations None Procedures EKG and - (Chest x-ray) Summary of Care Provided Minutes Spent on Discharge: 35 Hospital Course: Patient is a 58-year-old female who presented [facility] ED on 07/11/2024 with chest tightness and palpitations. Short hospital course as noted below. Patient discharged home in stable condition on 07/12. 1. Recurrent A-fib with RVR ? Cardiology followed. Suspected that recurrent A-fib was likely precipitated by high caffeine intake and low potassium. Treated with Cardizem drip on admission and converted back to normal sinus rhythm on evening of admission. Home-going regimen of Lopressor 50 mg twice daily and diltiazem 120 mg daily. [id number] score of 2, started on Eliquis on discharge. Cardiology noted that patient should be evaluated for A-fib ablation in the future. 2. Hypokalemia ? Potassium 2.9 on admit. Mag and Phos normal. Repleted as needed. Chronic medical conditions: ? Hypothyroidism: TSH normal. Continue home Synthroid. ? Hypertension: Regimen on discharge as noted above. ? History of breast cancer: Continue home letrozole. *Patient notably was admitted under inpatient status but had conversion back to normal sinus rhythm on evening of admission and improved more quickly than anticipated. Discharged home on hospital day 2. Total clinical time spent by myself addressing the patient's medical issues, reviewing all the data, and collaborating with patient's care team: 35 minutes. Physical Exam Const alert, oriented x3, no apparent distress and average body habitus Constitutional Narrative: Pleasant middle-age female, mildly fatigued appearing, otherwise laying comfortably in bed, conversing normally, in no acute distress. General Appearance: cooperative and comfortable HEENT normocephalic, head/scalp atraumatic, hearing grossly normal bilaterally, nasal mucous membranes and turbinates normal and moist oral mucous membranes Eyes PERRL, EOMs intact bilaterally and conjunctivae normal Neck full ROM Chest inspection of chest normal Resp normal respiratory effort, normal air movement, no use of accessory muscles and clear to auscultation bilaterally Cardio no murmurs and peripheral pulses 2+ throughout Cardio Narrative: A-fib with RVR. GI normal to inspection, nondistended, normoactive bowel sounds, soft to palpation, non-tender and non-distended Back/Spine normal ROM Extremity normal to inspection, full ROM and no pedal edema Skin no rashes or lesions noted Neuro no focal motor deficits Speech: speech normal Psych mental status grossly normal Weight / BMI Weight Weight: 70.08 kg Body Mass Index (BMI) 26.5 ABG / Lab / Microbiology Data 07/12/24 05:11 07/12/24 05:11 Laboratory: Laboratory Results - last 24 hr 07/11/24 12:35: Troponin I High Sens 12, TSH 1.630 07/12/24 05:11: WBC 6.6, RBC 4.48, Hgb 13.4, Hct 40.5, MCV 90.4, MCH 29.9, MCHC 33.1, RDW Std Deviation 38.8, RDW Coeff of Dasha 11.9, Plt Count 264, MPV 10.1, Sodium 141, Potassium 4.2, Chloride 110 H, Carbon Dioxide 26.0, Anion Gap 5, BUN 10, Creatinine 0.84, Estim Creat Clear Calc 70.98, Est GFR (MDRD) Af Amer 90, Est GFR (MDRD) Non-Af 74, BUN/Creatinine Ratio 11.9, Glucose 113 H, Calcium 9.3, Phosphorus 3.4, Magnesium 2.1 D/C Instructions Discharge Diet: - (Avoid caffeinated products) Meaningful Use Info Meaningful Use Meaningful Use Diagnoses (Choose all that apply): None applicable Ischemic Stroke Statin Dosing Therapy Reference: STATIN DOSE THERAPY REFERENCE: * Patients > 75 years receive moderate or high dose statin therapy. * Patients 75 years or YOUNGER should receive HIGH intensity statin dose unless contraindicated. You will be required to document reason for non-treatment if statin daily dose does not meet guidelines. HIGH DOSE STATIN THERAPY DAILY Atorvastatin > than or = to 40 mg Rosuvastatin > than or = to 20 mg Amlodipine + Atorvastatin > than or = to 2.5/40 mg Ezetimibe + Simvastatin 10/80 mg Simvastatin 80mg Discharge Plan Admission Admit Date/Time: 07/11/24 11:17 Primary Reason for Your Visit: Chest tightness and palpitations Attending Provider: Polo Read Primary Care Provider: Lian Brito NP Consulting Providers: Barron Silva Instructions Additional Instructions / Restrictions: Please take new medications as prescribed below. 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 Discharge Orders/Prescriptions Prescriptions: New metoprolol tartrate 50 mg Tablet 50 mg PO BID 30 Days Qty: 60 2RF diltiazem HCl 120 mg Capsule,Extended Release 24hr 120 mg PO DAILY 30 Days Qty: 30 2RF Eliquis 5 mg Tablet 5 mg PO BID 30 Days Qty: 60 0RF Continued vitamin B complex 1 EACH capsule 1 ea PO DAILY omega 0-bcj-ogy-fish oil 500 MG capsule,delayed release(DR/EC) 2 cap PO DAILY loratadine 10 MG tablet 10 mg PO DAILY duloxetine 30 mg capsule,delayed release(DR/EC) 30 mg PO DAILY Patient Comments: TAKE 1 CAPSULE BY MOUTH EVERY DAY .DO NOT CRUSH OR CHEW levothyroxine 25 mcg tablet 25 mcg PO DAILY Patient Comments: TAKE 1 TABLET BY MOUTH EVERY DAY letrozole 2.5 mg tablet 2.5 mg PO DAILY Discontinued metoprolol succinate [Toprol XL] 50 mg tablet extended release 24 hr 50 mg PO DAILY Qty: 90 3RF aspirin 81 mg tablet,delayed release (DR/EC) 81 mg PO DAILY Patient Comments: TAKE 1 TABLET BY MOUTH EVERY DAY lisinopril 10 mg tablet 10 mg PO DAILY Patient Comments: pt hasn't been taking because it makes her cough Referrals / Follow Up: Lian Brito INSTITUTION DIRECTOR, [facility] [Primary Care Provider] - Disposition Disposition (needs filled in before D/C Order can be placed): Home, Self Care Charges/Coding Visit Charges Inpatient E&M: 07099 Disch Hosp >30min
--- NOTE | 2024-07-12 11:32 | CASEMGMT ---
Addendum entered by Wilfrido Aponte 07/12/24 12:48: This RN CM noticed that the pt has commercial insurance and the pt will not be able to use the free trial card. The 10$ co-pay card will be able to be utilized and this is what the pharmacist was describing. This RN CM to pt room at this time. Pt states that she was in contact with [facility] and the 10$ co-pay savings card has been applied. Pt states that she is content, thanks this RN CM, and denies further questions or concerns. Addendum entered by Wilfrido Aponte 07/12/24 12:31: [facility] Pharmacy returns call and states that the medication is 171$ after insurance. The pharmacist states that the pt has the option to get online and apply for monthly savings discount through the manufacturers website. The pharmacist states that if the pt fills that out, the savings will apply today. This RN CM to pt room at this time and educated the pt on this. Pt states that she is agreeable and will apply for this. This RN CM also gave the pt the free trial and 10$ co-pay card if that does not work for the pt. Pt educated that this can only be used once. Pt states understanding and denies further questions or concerns at this time. Original Note: Pt has an order for DC placed. Pt has a new order for Eliquis. TC to [facility] at this time regarding the vaughan of the medication for the pt. No answer at this time, VM left. Awaiting return call.
[2024-07-12 12:49] VITALS: BP 123/91; PULSE 75; RESP 18; O2SAT 100
== END 2024-07-12 12:50 | disposition home or self-care (01) | DRG 309 ==
LOC: ED 10:46 → ICU 07-12 10:09
PROVIDERS: Admitting Provider Hospitalist; Emergency Provider Emergency Medicine; PCP Registered Nurse; Visit Provider Hospitalist
DX: I48.0 Paroxysmal atrial fibrillation (principal); Q21.12 Patent foramen ovale; E03.9 Hypothyroidism, unspecified; I10 Essential (primary) hypertension; E87.6 Hypokalemia; Z79.82 Long term (current) use of aspirin; Z79.811 Long term (current) use of aromatase inhibitors; Z79.899 Other long term (current) drug therapy; Z85.3 Personal history of malignant neoplasm of breast; R09.81 Nasal congestion; Z79.890 Hormone replacement therapy
CPT/HCPCS: 71045; 80048; 83735; 84100; 84443; 84484; 85025; 85027; 93005; 96365; 96366; 96368; 96372; 96376; 99221; 99285; J7030; A4216; G0378

== ENCOUNTER → 2024-10-04 | Outpatient (CLI) | payer OTHER, SELFPAY ==
[2024-10-04 16:58] LABS: Hepatitis B Surface Antibody Reactive; Rubella IgG Reactive (Nonreactive)
[2024-10-10 09:22] LABS: Mumps Antibody, IgM < 0.80 AU (0.00-0.79); V-Zoster IgG (Immunity) Reactive (Non Reactive)
== END | disposition home or self-care (01) ==
PROVIDERS: PCP Registered Nurse; Referring Provider Registered Nurse; Visit Provider Registered Nurse
DX: Z01.84 Encounter for antibody response examination (principal)
CPT/HCPCS: 36415; 86706; 86735; 86762; 86765; 86787

== ENCOUNTER → 2025-08-24 | Outpatient (CLI) | payer OTHER, SELFPAY ==
[2025-08-24 14:29] LABS: Hematocrit 39.6 % (37-47); Hemoglobin 13.4 g/dL (12.0-15.0); Mean Corp Hgb Conc 33.8 g/dL (32-36); Mean Corpuscular Volume 86.8 fL (81-99); Mean Platelet Vol. 10.8 fl (6.2-12.0); Platelet Count 268 K/mm3 (150-450); RBC Distribution Width CV 11.5 % (11.6-14.6); RBC Distribution Width SD 36.5 fl (35.1-43.9); Red Blood Count 4.56 M/mm3 (4.2-5.4); White Blood Count 6.5 K/mm3 (4.4-11.0)
[2025-08-24 15:24] LABS: AST(SGOT) 25 U/L (<=31); Alanine Aminotransfer ALT/SGPT 29 U/L (<=34); Albumin, Serum 4.7 g/dL (3.5-5.0); Alkaline Phosphatase 66 U/L (35-104); Anion Gap 11 (5-15); BUN 14 mg/dL (4-19); BUN/Creat Ratio 15.3 RATIO (10-20); Calcium,Total 10.0 mg/dL (7.6-11.0); Carbon Dioxide 25.2 mmol/L (21.0-32.0); Chloride 105 mmol/L (98-108); Cholesterol 187 mg/dL (<=200); Globulin 2.7 g/dL (2.2-4.2); Glucose 98 mg/dL (70-99); Low Density Lipoprotein Calc. 105 mg/dL; Potassium 4.4 mmol/L (3.3-5.1); Triglycerides 120 mg/dL; Very Low Density Lipoprotein 24 mg/dL (5-40); Vitamin D,25 Hydroxy 66.4 ng/mL (30-100); cholesterol:hdl ratio screen 3.07
== END | disposition home or self-care (01) ==
PROVIDERS: PCP Registered Nurse; Referring Provider Registered Nurse; Visit Provider Registered Nurse
DX: Z00.00 Encounter for general adult medical examination without abnormal findings (principal); Z13.21 Encounter for screening for nutritional disorder; Z13.29 Encounter for screening for other suspected endocrine disorder; E03.9 Hypothyroidism, unspecified
CPT/HCPCS: 36415; 80053; 80061; 82306; 84439; 84443; 85027